=== PATIENT | female | born 1950 | race Hispanic/Latino ===

== ENCOUNTER 2020-02-25 15:50 | Inpatient (IN) | payer OTHER ==
--- OUTSIDE RECORDS SUMMARY | 2020-02-25 15:52 | XMS REPORT | Clinical Summary ---
:1950 Author Organization [facility] Address [address] [place] [address] Care Team Providers Name Role Phone Sharpless Primary Care Provider Unavailable Allergies No Known Allergies Medications Medication Sig Dispensed Refills Start Date End Date Status SITagliptin Take 100 mg by mouth 0 Active (JANUVIA) 100 MG daily. tablet amLODIPine Take 10 mg by mouth 0 Active (NORVASC) 10 MG daily. tablet esomeprazole Take 40 mg by mouth 0 Active (NEXIUM) 40 MG daily. capsule aspirin 81 MG EC Take 81 mg by mouth 0 Active tablet daily. clopidogrel Take 75 mg by mouth 0 Active (PLAVIX) 75 mg daily. tablet lisinopril Take 40 mg by mouth 0 Active (PRINIVIL,ZESTRIL) daily. 40 MG tablet insulin detemir Inject 50 Units 10 mL 0 03/06/2017 Active (LEVEMIR) 100 subcutaneously 2 unit/mL injection (two) times daily. 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 Family History Medical History Relation Name Comments Heart disease Brother Diabetes Father Cancer Maternal Grandfather Heart disease Maternal Grandmother Cancer Mother Diabetes Sister Relation Name Status Comments Brother Alive Father Maternal Grandfather Maternal Grandmother Mother Sister Social History Tobacco Use Types Packs/Day Years Used Date Never Smoker Smokeless Tobacco: Never Used Alcohol Use Drinks/Week oz/Week Comments No Sex Assigned at Date Recorded Not on file Job Start Date Occupation Industry Not on file Not on file Not on file Travel History Travel Start Travel End No recent travel history available. Last Filed Vital Signs Not on file Plan of Treatment Not on file Results Not on fileafter 02/24/2019 Insurance Payer Benefit Plan / Group Subscriber ID Type Phone A ddress [employer] xxxxxxxx Maps Contracted Advance Directives For more information, please contact:[address] [phone] Code Status Date Activated Date Inactivated Comments Full Code 02/27/2017 7:43 PM 03/09/2017 10:36 PM This code status was determined by: Patient
--- OUTSIDE RECORDS SUMMARY | 2020-02-25 15:53 | XMS REPORT | Continuity of Care Document ---
:1950 Author Organization [facility] t Address [address] [place] [address] Care Team Providers Name Role Phone Sharpless Primary Care Physician Unavailable Parviz MONROE Attending Clinician Unavailable Shawna HANEY Admitting Clinician Unavailable Payers Payer Name Policy Type Policy Number Effective Date Expiration Date S ource Problems Condition Condition Condition Status Onset Resolution Last Treating Co mments Source Name Details Category Date Date Treatment Clinician Date Left Left Disease Active [facility] pontine pontine 9-05 [facility] - stroke stroke 00:00: Medical 00 Center Allergies, Adverse Reactions, Alerts This patient has no known allergies or adverse reactions. Family History Family Member Diagnosis Comments Start Date Stop Date Source Natural brother Heart disease [facility] Natural father Diabetes [facility] Maternal grandfather Cancer [facility] Maternal grandmother Heart disease C [facility] Natural mother Cancer [facility] Natural sister Diabetes [facility] Social History Social Habit Start Date Stop Date Quantity Comments Source Sex Assigned At [facility] Smoking Status Start Date Stop Date Source Never smoker [facility] Medications Ordered Filled Start Stop Current Ordering Indication Dosage Frequency Signature Comments Components Source Medication Medication Date Date Medication? Clinician (SIG) Name Name insulin Yes 50U Q.5D Inject [facility] - (LEVEMIR) 00:00: subcutaneo Me dical 100 unit/mL 00 [facility] Center injection (two) times daily. SITagliptin 2017-0 Yes 100mg QD Take [address] (JANUVIA) 9-05 mg by [facility] - 100 MG 21:20: mouth Medical tablet 30 daily. Shorter amLODIPine 20170 Yes 10mg QD Take [address] (NORVASC) 9-05 by mouth [facility] - 10 MG 21:20: daily. Medical tablet 30 [facility] esomeprazol 2017-0 Yes 40mg QD Take [address] (NEXIUM) 9-05 by mouth [facility] - 40 MG 21:20: daily. Medical capsule 30 Shorter aspirin 81 20170 Yes 81mg QD Take [address] MG EC 9-05 by mouth [facility] - tablet 21:20: daily. Medical 30 [facility] clopidogrel 2017 Yes 75mg QD Take [address] [facility] [address] (PLAVIX) 75 -05 by mouth [facility] - mg tablet 21:20: daily. Medica l 30 [place]orter lisinopril Yes 40mg QD Take [address] (PRINIVIL,Z 02-27 by mouth [facility] - ESTRIL) 40 21:20: daily. Medic al MG tablet 30 Center Procedures Procedure Date / Time Performed Performing Clinician Sourc e [id number] 2020-01-05 00:00:00 ENCPL 4X4B00U 2020-01-05 00:00:00 ENCPL 0G7M45Z 2020-01-05 00:00:00 ENCPL 3L4F21B 2020-01-05 00:00:00 ENCPL 7V6M62O 2020-01-05 00:00:00 ENCPL 0R0W62U 2020-01-05 00:00:00 ENCPL 0M5C73Y 2020-01-05 00:00:00 ENCPL 4X4L64M 2020-01-05 00:00:00 ENCPL 7D7K17M 2020-01-05 00:00:00 ENCPL 2R7H72Y 2020-01-05 00:00:00 ENCPL 5U8J07P 2020-01-05 00:00:00 ENCPL 3N3P22A 2020-01-05 00:00:00 ENCPL 7W3X59M 2020-01-05 00:00:00 ENCPL 8J9N98T 2020-01-05 00:00:00 ENCPL 3Q8C54J 2020-01-05 00:00:00 ENCPL 2J8K56S 2020-01-05 00:00:00 ENCPL 1U0Y06S 2020-01-05 00:00:00 ENCPL 9B6T91S 2020-01-05 00:00:00 ENCPL 9F1U39T 2020-01-05 00:00:00 ENCPL 5R8O29F 2020-01-05 00:00:00 ENCPL 6Q9B28O 2020-01-05 00:00:00 ENCPL 6B7K70Z 2020-01-05 00:00:00 ENCPL 1G4U19B 2020-01-05 00:00:00 ENCPL 0E0Q82Z 2020-01-05 00:00:00 ENCPL 3E2H79V 2020-01-05 00:00:00 ENCPL 3V0H81Z 2020-01-05 00:00:00 ENCPL 1I9J35J 2020-01-05 00:00:00 ENCPL 4W8G69O 2020-01-05 00:00:00 ENCPL 2Y9V81L 2020-01-05 00:00:00 ENCPL Encounters Start End Encounter Admission Attending Care Care Encounter Source Date/Time Date/Time Type Type Clinicians Facility Department ID 2020-01-16 Outpatient NEW ENCGEN ENCGEN [id number] EN CGEN 13:22:45 ADMISSION Results Test Description Test Time Test Comments Results Result Comments Source POCT-GLUCOSE METER 2017-03-09 16:49:00 Test Item Value Reference Range Interpretation Comme nts POC-GLUCOSE METER ([place]) (test 150 mg/dL 70-110 [address]) [facility] 7703 0 POCT-GLUCOSE [id number] 11:40:00 Test Item Value Reference Range Interpretation Comments POC-GLUCOSE METER 125 mg/dL 70-110 H TESTED AT [place] [address] ([facility]) (test code = DAVID Parada [facility] 1538) [id number] POCT-GLUCOSE [id number] 07:36:00 Test Item Value Reference Range Interpretation Comments POC-GLUCOSE METER 102 mg/dL 70-110 TESTED AT [place] [address] ([facility]) (test code = DAVID Parada [facility] 1538) [id number] POCT-GLUCOSE [id number] 21:09:00 Test Item Value Reference Range Interpretation Comments POC-GLUCOSE METER 165 mg/dL 70-110 H TESTED AT [place] [address] ([facility]) (test code = DAVID Parada [place] 1538) [id number] POCT-GLUCOSE [id number] 16:49:00 Test Item Value Reference Range Interpretation Comments POC-GLUCOSE METER 124 mg/dL 70-110 H TESTED AT [place] [address] ([facility]) (test code = DAVID Parada [place] 1538) [id number] POCT-GLUCOSE [id number] 11:38:00 Test Item Value Reference Range Interpretation Comments POC-GLUCOSE METER 169 mg/dL 70-110 H TESTED AT [place] [address] ([facility]) (test code = DAVID Parada [place] 1538) [id number] POCT-GLUCOSE [id number] 07:40:00 Test Item Value Reference Range Interpretation Comments POC-GLUCOSE METER 191 mg/dL 70-110 H TESTED AT [place] [address] ([facility]) (test code = DAVID Parada [place] 1538) [id number] POCT-GLUCOSE [id number] 21:26:00 Test Item Value Reference Range Interpretation Comments POC-GLUCOSE METER 173 mg/dL 70-110 H TESTED AT [place] [address] ([facility]) (test code = DAVID Parada [place] 1538) [address] POCT-GLUCOSE [id number] 17:45:00 Test Item Value Reference Range Interpretation Comments POC-GLUCOSE METER 155 mg/dL 70-110 H TESTED AT [place] [address] ([facility]) (test code = DAVID Parada [place] 1538) [id number] POCT-GLUCOSE [id number] 12:58:00 Test Item Value Reference Range Interpretation Comments POC-GLUCOSE METER 181 mg/dL 70-110 H TESTED AT [place] [address] ([facility]) (test code = DAVID Parada [place] 1538) [id number] POCT-GLUCOSE [id number] 12:32:00 Test Item Value Reference Range Interpretation Comments POC-GLUCOSE METER 177 mg/dL 70-110 H TESTED AT [place] [address] ([facility]) (test code = DAVID Parada [place] 1538) [id number] POCT-GLUCOSE [id number] 08:25:00 Test Item Value Reference Range Interpretation Comments POC-GLUCOSE METER 125 mg/dL 70-110 H TESTED AT [place] [address] ([facility]) (test code = DAVID Parada [place] 1538) [id number] POCT-GLUCOSE [id number] 20:55:00 Test Item Value Reference Range Interpretation Comments POC-GLUCOSE METER 131 mg/dL 70-110 H TESTED AT [place] [address] ([facility]) (test code = ASHLEYTUCKER Karma [place] 1538) [id number] POCT-GLUCOSE [id number] 20:42:00 Test Item Value Reference Range Interpretation Comments POC-GLUCOSE METER 121 mg/dL 70-110 H TESTED AT [place] [address] ([facility]) (test code = ASHLEYTUCKER [place] 1538) [id number] POCT-GLUCOSE [id number] 17:10:00 Test Item Value Reference Range Interpretation Comments POC-GLUCOSE METER 116 mg/dL 70-110 H TESTED AT [place] [address] ([facility]) (test code = ASHLEYTUCKER Karma [place] 1538) [id number] POCT-GLUCOSE [id number] 11:45:00 Test Item Value Reference Range Interpretation Comments POC-GLUCOSE METER 153 mg/dL 70-110 H TESTED AT [place] [address] ([facility]) (test code = ASHLEYTUCKER [place] 1538) [id number] POCT-GLUCOSE [id number] 08:42:00 Test Item Value Reference Range Interpretation Comments POC-GLUCOSE METER 117 mg/dL 70-110 H TESTED AT [place] [address] ([facility]) (test code = ASHLEYTUCKER [place] 1538) [id number] POCT-GLUCOSE [id number] 21:05:00 Test Item Value Reference Range Interpretation Comments POC-GLUCOSE METER 195 mg/dL 70-110 H TESTED AT [place] [address] ([facility]) (test code = ASHLEYTUCKER Parada [place] 1538) [address] POCT-GLUCOSE [id number] 17:04:00 Test Item Value Reference Range Interpretation Comments POC-GLUCOSE METER 143 mg/dL 70-110 H TESTED AT [place] [address] ([facility]) (test code = ASHLEYTUCKER Parada [place] 1538) [id number] POCT-GLUCOSE [id number] 13:32:00 Test Item Value Reference Range Interpretation Comments POC-GLUCOSE METER 190 mg/dL 70-110 H TESTED AT [place] [address] ([facility]) (test code = DAVID [place] 1538) [id number] POCT-GLUCOSE [id number] 12:46:00 Test Item Value Reference Range Interpretation Comments POC-GLUCOSE METER 175 mg/dL 70-110 H TESTED AT [place] [address] ([facility]) (test code = DAVID Parada [facility] 1538) [id number] POCT-GLUCOSE [id number] 09:35:00 Test Item Value Reference Range Interpretation Comments POC-GLUCOSE METER 206 mg/dL 70-110 H TESTED AT [place] [address] ([facility]) (test code = DAVID Parada [facility] 1538) [id number] POCT-GLUCOSE [id number] 08:01:00 Test Item Value Reference Range Interpretation Comments POC-GLUCOSE METER 63 mg/dL 70-110 L Notified R Layton RIVAS/TESTED AT ([facility]) (test code = [address] 1538) [facility] 7703 0 POCT-GLUCOSE [id number] 20:42:00 Test Item Value Reference Range Interpretation Comments POC-GLUCOSE METER 160 mg/dL 70-110 H TESTED AT [place] [address] ([facility]) (test code = DAVID Parada [facility] 1538) 23943 POCT-GLUCOSE [id number] 16:48:00 Test Item Value Reference Range Interpretation Comments POC-GLUCOSE METER 180 mg/dL 70-110 H TESTED AT [place] [address] ([facility]) (test code = DAVID Parada [facility] 1538) [id number] POCT-GLUCOSE [id number] 11:45:00 Test Item Value Reference Range Interpretation Comments POC-GLUCOSE METER 176 mg/dL 70-110 H TESTED AT [place] [address] ([facility]) (test code = DAVID Parada [facility] 1538) [id number] POCT-GLUCOSE [id number] 08:12:00 Test Item Value Reference Range Interpretation Comments POC-GLUCOSE METER 89 mg/dL 70-110 TESTED AT [place] [address] ([facility]) (test code = DAVID Parada [facility] [address] 1538) BASIC METABOLIC [id number] 05:06:00 Test Item Value Reference Range Interpretation Comments SODIUM (BEAKER) 137 meq/L 136-145 (test code = 381) POTASSIUM (BEAKER) 4.0 meq/L 3.5-5.1 (test code = 379) CHLORIDE (BEAKER) 103 meq/L 98-107 (test code = 382) CO2 (BEAKER) (test 26 meq/L 22-29 code = 355) BLOOD UREA NITROGEN 21 mg/dL 7-21 (BEAKER) (test code = 354) CREATININE (BEAKER) 0.90 mg/dL 0.57-1.25 (test code = 358) GLUCOSE RANDOM 54 mg/dL 70-105 L (BEAKER) (test code = 652) CALCIUM (BEAKER) 9.7 mg/dL 8.4-10.2 (test code = 697) EGFR (BEAKER) (test 62 mL/min/1.73 ESTIMA DEMETRIO GFR IS code = 1092) sq m NOT ACCURATE CREATININE CLEARANCE IN PREDICTING GLOMERULAR FILTRATION RATE . ESTIMATED GFR I S NOT APPLICABLE FOR DIALYSIS PATIEN TS. POCT-GLUCOSE [id number] 21:04:00 Test Item Value Reference Range Interpretation Comments POC-GLUCOSE METER 115 mg/dL 70-[address] [facility] 6720 (BEAKER) (test code = DAVID Parada [place] 1538) [address] URINALYSIS W/ [id number] 19:25:00 Test Item Value Reference Range Interpretation Comments COLOR (BEAKER) (test code = 470) Light Yellow CLARITY (BEAKER) (test code = Hazy 469) SPECIFIC GRAVITY UA (BEAKER) 1.004 1.001-1.035 (test code = 468) PH UA (BEAKER) (test code = 467) 5.5 5.0-8.0 PROTEIN UA (BEAKER) (test code = 70 mg/dL Negative A 464) GLUCOSE UA (BEAKER) (test code = Negative Negative 365) KETONES UA (BEAKER) (test code = Negative Negative 371) BILIRUBIN UA (BEAKER) (test code Negative Negative = 462) BLOOD UA (BEAKER) (test code = Small Negative A 461) NITRITE UA (BEAKER) (test code = Negative Negative 465) LEUKOCYTE ESTERASE UA (BEAKER) Large Negative A (test code = 466) UROBILINOGEN UA (BEAKER) (test 0.2 mg/dL 0.2-1.0 code = 463) RBC UA (BEAKER) (test code = 4 /HPF 519) WBC UA (BEAKER) (test code = 38 /HPF 520) BACTERIA (BEAKER) (test code = Rare 517) SQUAMOUS EPITHELIAL (BEAKER) 4 /HPF (test code = 516) SOURCE(BEAKER) (test code = 2795) POCT-GLUCOSE [id number] 17:51:00 Test Item Value Reference Range Interpretation Comments POC-GLUCOSE METER 176 mg/dL 70-110 H TESTED AT [place] [address] ([facility]) (test code = DAVID [place] 1538) [address] POCT-GLUCOSE [id number] 12:29:00 Test Item Value Reference Range Interpretation Comments POC-GLUCOSE METER 142 mg/dL 70-110 H TESTED AT [place] [address] ([facility]) (test code = DAVID Parada [place] 1538) [address] POCT-GLUCOSE [id number] 08:01:00 Test Item Value Reference Range Interpretation Comments POC-GLUCOSE METER 103 mg/dL 70-110 TESTED AT [place] [address] ([facility]) (test code = DAVID Parada [place] 1538) [address]120 POCT-GLUCOSE [id number] 20:52:00 Test Item Value Reference Range Interpretation Comments POC-GLUCOSE METER 141 mg/dL 70-110 H TESTED AT [place] [address] ([facility]) (test code = DAVID Parada [place] 1538) [id number] POCT-GLUCOSE [id number] 17:25:00 Test Item Value Reference Range Interpretation Comments POC-GLUCOSE METER 189 mg/dL 70-110 H TESTED AT [place] [address] ([facility]) (test code = DAVID Parada [place] 1538) [address] POCT-GLUCOSE [id number] 12:42:00 Test Item Value Reference Range Interpretation Comments POC-GLUCOSE METER 169 mg/dL 70-110 H TESTED AT [place] [address] ([facility]) (test code = DAVID Parada [place] 1538) [id number] POCT-GLUCOSE [id number] 08:12:00 Test Item Value Reference Range Interpretation Comments POC-GLUCOSE METER 140 mg/dL 70-110 H TESTED AT [place] [address] ([facility]) (test code = DAVID Parada [place] 1538) [address]235 POCT-GLUCOSE [id number] 20:30:00 Test Item Value Reference Range Interpretation Comments POC-GLUCOSE METER 165 mg/dL 70-110 H TESTED AT [place] [address] ([facility]) (test code = DAVID Parada [place] 1538) [address]382 POCT-GLUCOSE [id number] 16:56:00 Test Item Value Reference Range Interpretation Comments POC-GLUCOSE METER 84 mg/dL 70-110 TESTED AT [place] [address] ([facility]) (test code = DAVID Parada [facility] [address] 1538) URINE [id number] 15:41:00 Test Item Value Reference Range Interpretation Comments CULTURE ([facility]) (test 30-39,000 col/mL skin code = 1095) marcie POCT-GLUCOSE [id number] 11:27:00 Test Item Value Reference Range Interpretation Comments POC-GLUCOSE METER 127 mg/dL 70-110 H TESTED AT [place] [address] ([facility]) (test code = DAVID Parada [place] 1538) [address] POCT-GLUCOSE [id number] 08:18:00 Test Item Value Reference Range Interpretation Comments POC-GLUCOSE METER 117 mg/dL 70-110 H TESTED AT [place] [address] ([facility]) (test code = DAVID Parada [place] 1538) [address]87 POCT-GLUCOSE [id number] 20:16:00 Test Item Value Reference Range Interpretation Comments POC-GLUCOSE METER 111 mg/dL 70-110 H TESTED AT [place] [address] ([facility]) (test code = DAVID Parada [place] 1538) [address] POCT-GLUCOSE [id number] 17:19:00 Test Item Value Reference Range Interpretation Comments POC-GLUCOSE METER 148 mg/dL 70-110 H TESTED AT [place] [address] ([facility]) (test code = DAVID Parada [place] 1538) [address]24 POCT-GLUCOSE [id number] 13:27:00 Test Item Value Reference Range Interpretation Comments POC-GLUCOSE METER 245 mg/dL 70-110 H TESTED AT [place] [address] ([facility]) (test code = DAVID Parada [place] 1538) [address] POCT-GLUCOSE [id number] 11:50:00 Test Item Value Reference Range Interpretation Comments POC-GLUCOSE METER 234 mg/dL 70-110 H TESTED AT [place] [address] ([facility]) (test code = DAVID Parada [place] 1538) [address] HEMOGLOBIN [id number] 08:59:00 Test Item Value Reference Range Interpretation Comments HEMOGLOBIN A1C ([facility]) (test code = 11.8 % 4.3-6.1 H 368) POCT-GLUCOSE [id number] 07:40:00 Test Item Value Reference Range Interpretation Comments POC-GLUCOSE METER 181 mg/dL 70-[address] [facility] 6720 (BEAKER) (test code = DAVID [place] 1538) [address] LIPID [id number] 06:05:00 Test Item Value Reference Range Interpretation Comments TRIGLYCERIDES (BEAKER) (test code = 206 mg/dL 540) CHOLESTEROL (BEAKER) (test code = 230 mg/dL 631) HDL CHOLESTEROL (BEAKER) (test code 36 mg/dL = 976) LDL CHOLESTEROL CALCULATED (BEAKER) 153 mg/dL (test code = 633) Triglyceride Reference Range: Low Risk <150 Borderline 150-199 High Risk 200-499 Very High Risk >=500Cholesterol Reference Range: Low Risk <200 Borderline 200-239 High Risk >240HDL Cholesterol Reference Range: Low Risk >=60 High Risk <40LDL Cholesterol Reference Range: Optimal <100 Near Optimal 100-129 Borderline 130-159 High 160-189 Very High >=190 FastingBASIC METABOLIC [id number] 06:05:00 Test Item Value Reference Range Interpretation Comments SODIUM (BEAKER) 141 meq/L 136-145 (test code = 381) POTASSIUM (BEAKER) 3.3 meq/L 3.5-5.1 L (test code = 379) CHLORIDE (BEAKER) 105 meq/L 98-107 (test code = 382) CO2 (BEAKER) (test 27 meq/L 22-29 code = 355) BLOOD UREA NITROGEN 15 mg/dL 7-21 (BEAKER) (test code = 354) CREATININE (BEAKER) 0.99 mg/dL 0.57-1.25 (test code = 358) GLUCOSE RANDOM 184 mg/dL 70-105 H (BEAKER) (test code = 652) CALCIUM (BEAKER) 9.4 mg/dL 8.4-10.2 (test code = 697) EGFR (BEAKER) (test 56 mL/min/1.73 ESTIMA DEMETRIO GFR IS code = 1092) sq m NOT ACCURATE CREATININE CLEARANCE IN PREDICTING GLOMERULAR FILTRATION RATE . ESTIMATED GFR I S NOT APPLICABLE FOR DIALYSIS PATIEN TS. FastingTSH/FREE T4 IF [id number] 06:05:00 Test Item Value Reference Range Interpretation Comments THYROID STIMULATING HORMONE 2.87 uIU/mL 0.35-4.94 (BEAKER) (test code = 772) CBC W/PLT COUNT & AUTO [id number] 05:29:00 Test Item Value Reference Range Interpretation Comments WHITE BLOOD CELL COUNT (BEAKER) 6.1 K/ L 3.5-10.5 (test code = 775) RED BLOOD CELL COUNT (BEAKER) 4.13 M/ L 3.93-5.22 (test code = 761) HEMOGLOBIN (BEAKER) (test code = 11.7 GM/DL 11.2-15.7 410) HEMATOCRIT (BEAKER) (test code = 36.2 % 34.1-44.9 411) MEAN CORPUSCULAR VOLUME (BEAKER) 87.7 fL 79.4-94.8 (test code = 753) MEAN CORPUSCULAR HEMOGLOBIN 28.3 pg 25.6-32.2 (BEAKER) (test code = 751) MEAN CORPUSCULAR HEMOGLOBIN CONC 32.3 GM/DL 32.2-35.5 (BEAKER) (test code = 752) RED CELL DISTRIBUTION WIDTH 14.2 % 11.7-14.4 (BEAKER) (test code = 412) PLATELET COUNT (BEAKER) (test 289 K/CU MM 150-450 code = 756) MEAN PLATELET VOLUME (BEAKER) 9.6 fL 9.4-12.3 (test code = 754) NUCLEATED RED BLOOD CELLS 0 /100 WBC 0-0 (BEAKER) (test code = 413) NEUTROPHILS RELATIVE PERCENT 49 % (BEAKER) (test code = 429) LYMPHOCYTES RELATIVE PERCENT 41 % (BEAKER) (test code = 430) MONOCYTES RELATIVE PERCENT 5 % (BEAKER) (test code = 431) EOSINOPHILS RELATIVE PERCENT 4 % (BEAKER) (test code = 432) BASOPHILS RELATIVE PERCENT 1 % (BEAKER) (test code = 437) NEUTROPHILS ABSOLUTE COUNT 2.97 K/ L 1.56-6.13 (BEAKER) (test code = 670) LYMPHOCYTES ABSOLUTE COUNT 2.49 K/ L 1.18-3.74 (BEAKER) (test code = 414) MONOCYTES ABSOLUTE COUNT (BEAKER) 0.30 K/ L 0.24-0.36 (test code = 415) EOSINOPHILS ABSOLUTE COUNT 0.23 K/ L 0.04-0.36 (BEAKER) (test code = 416) BASOPHILS ABSOLUTE COUNT (BEAKER) 0.06 K/ L 0.01-0.08 (test code = 417) IMMATURE GRANULOCYTES-RELATIVE 0 % 0-1 PERCENT (BEAKER) (test code = 2801) POCT-GLUCOSE [id number] 23:44:00 Test Item Value Reference Range Interpretation Comments POC-GLUCOSE METER 169 mg/dL 70-[address] [facility] 6720 (BEAKER) (test code = DAVID Parada [place] 1538) [address] URINALYSIS W/ [id number] 23:03:00 Test Item Value Reference Range Interpretation Comments COLOR (BEAKER) (test code = 470) Light Yellow CLARITY (BEAKER) (test code = Clear 469) SPECIFIC GRAVITY UA (BEAKER) 1.007 1.001-1.035 (test code = 468) PH UA (BEAKER) (test code = 467) 7.0 5.0-8.0 PROTEIN UA (BEAKER) (test code = 300 mg/dL Negative A 464) GLUCOSE UA (BEAKER) (test code = 50 mg/dL Negative A 365) KETONES UA (BEAKER) (test code = Negative Negative 371) BILIRUBIN UA (BEAKER) (test code Negative Negative = 462) BLOOD UA (BEAKER) (test code = Small Negative A 461) NITRITE UA (BEAKER) (test code = Negative Negative 465) LEUKOCYTE ESTERASE UA (BEAKER) Large Negative A (test code = 466) UROBILINOGEN UA (BEAKER) (test 0.2 mg/dL 0.2-1.0 code = 463) RBC UA (BEAKER) (test code = 5 /HPF 519) WBC UA (BEAKER) (test code = 57 /HPF 520) SQUAMOUS EPITHELIAL (BEAKER) 1 /HPF (test code = 516) HYALINE CASTS (BEAKER) (test 2 /LPF code = 514) SOURCE(BEAKER) (test code = 1648)
[2020-02-25 17:13] LABS: Basophils % 1.3 % (0-1.3); Hematocrit 25.2 % (36.0-45.0); Lymphocytes % 12.9 % (15.3-44.8); MPV 7.5 fL (7.6-11.3); RBC Red Blood Cell Count 2.82 M/uL (3.86-4.86)
[2020-02-25] MEDS ORDERED: NA CHLORIDE 0.9% 1,000 ML ONE (17:14)
[2020-02-25 17:15] LABS: Protime INR 1.15
--- NOTE | 2020-02-25 17:43 | EDPHYS ---
Physician Documentation [facility] Name: Fifi Salamanca Age: 69 yrs Sex: Female : 1950 Arrival Date: 02/25/2020 Time: 16:02 Bed 7 Private MD: ED Physician Jose Enrique Mclaughlin HPI: 02/25 08:28 This 69 yrs old Female presents to ER via EMS with complaints of Right foot kdr infection. 08:28 The patient was sent by Dr. Vallejo's office for evaluation of possible gangrene to right kdr foot. The patient is unable to give any history and is a poor historian . Historical: - Allergies: 02/24 16:07 Aspirin; hb - PMHx: 16:07 Diabetes - IDDM; Hypertension; Myocardial infarction; High Cholesterol; CVA; hb - PSHx: 16:07 None; hb - Immunization history:: Adult Immunizations up to date. - Social history:: Smoking status: unknown. ROS: 02/25 09:15 Constitutional: Unable to obtain due to AMS kdr Unable to obtain ROS due to altered mental status. Exam: 02/24 18:31 ECG was reviewed by the Attending Physician. kdr 02/25 09:15 Constitutional: This is a well developed, poorly nourished patient who is sonolent but kdr in very mild distress. Head/Face: Normocephalic, atraumatic. Eyes: Pupils equal round and reactive to light, extra-ocular motions intact. Lids and lashes normal. Conjunctiva and sclera are non-icteric and not injected. Cornea within normal limits. Periorbital areas with no swelling, redness, or edema. Chest/axilla: Normal chest wall appearance and motion. Nontender with no deformity. No lesions are appreciated. Cardiovascular: Regular rate and rhythm with a normal S1 and S2. No gallops, murmurs, or rubs. Normal PMI, no JVD. No pulse deficits. Respiratory: Lungs have equal breath sounds bilaterally, clear to auscultation and percussion. No rales, rhonchi or wheezes noted. No increased work of breathing, no retractions or nasal flaring. Abdomen/GI: Soft, non-tender, with normal bowel sounds. No distension or tympany. No guarding or rebound. No evidence of tenderness throughout. Musculoskeletal/extremity: Both lower extremities are contracted and wasted with little muscle mass. The right foot is almost completely gangrenous adn there are some ulcerate areas on the left lower extremity as well. Vital Signs: 02/24 16:04 BP 175 / 67; Pulse 83; Resp 16; Temp 99; Pulse Ox 97% on R/A; Pain 0/10; hb 17:23 Weight 53.98 kg; jr10 18:20 BP 183 / 71; Pulse 86; Resp 20; Temp 98.3; Pulse Ox 98% on R/A; jr10 18:40 BP 184 / 71; Pulse 80; Resp 20; Pulse Ox 99% on R/A; jr10 18:57 BP 63 / 53; Pulse 86; Resp 16; Pulse Ox 86% on R/A; jr10 18:59 BP 84 / 46; Pulse 85; Resp 15; Pulse Ox 87% ; jr10 19:02 BP 76 / 38; Pulse 86; Resp 16; Pulse Ox 91% on Non-rebreather mask; jr10 19:07 BP 99 / 64; Pulse 102; Resp 16; Pulse Ox 100% on Non-rebreather mask; jr10 19:59 BP 99 / 64; Pulse 92; Resp 19; Pulse Ox 92% ; Pain 0/10; mt2 20:05 Temp 97.9; mt2 MDM: 17:43 Patient medically screened. [facility] 02/25 09:15 Data reviewed: vital signs, nurses notes, old medical records, EKG, radiologic studies. [facility] 02/24 16:54 Order name: Amylase, Serum; Complete Time: 17:53 [facility] 02/24 16:54 Order name: Basic Metabolic Panel; Complete Time: 17:53 [facility] 02/24 16:54 Order name: Blood Culture Adult (2) [facility] 02/24 16:54 Order name: CBC with Diff; Complete Time: 17:53 [facility] 02/24 16:54 Order name: Ckmb; Complete Time: 17:53 [facility] 02/24 16:54 Order name: CPK; Complete Time: 17:53 [facility] 02/24 16:54 Order name: Lactate; Complete Time: 17:53 [facility] 02/24 16:54 Order name: LFT's; Complete Time: 17:53 [facility] 02/24 16:54 Order name: Lipase; Complete Time: 17:53 [facility] 02/24 16:54 Order name: Procalcitonin; Complete Time: 20:10 kdr 02/24 16:54 Order name: Protime (+inr); Complete Time: 17:53 kdr 02/24 16:54 Order name: Ptt, Activated; Complete Time: 17:53 kdr 02/24 16:54 Order name: Troponin (emerg Dept Use Only); Complete Time: 17:53 kdr 02/24 16:54 Order name: Urine Microscopic Only; Complete Time: 20:10 kdr 02/24 16:54 Order name: Chest Single View XRAY; Complete Time: 20:11 kdr 02/24 16:54 Order name: Accucheck; Complete Time: 18:33 kdr 02/24 16:54 Order name: Cardiac monitoring; Complete Time: 16:57 kdr 02/24 16:54 Order name: Foot Right 3 View XRAY; Complete Time: 20:11 kdr 02/24 16:54 Order name: Tib Fib Right XRAY; Complete Time: 20:11 kdr 02/24 18:16 Order name: Urine Dipstick--Ancillary (enter results); Complete Time: 20:10 bd 02/24 19:02 Order name: CT Head Brain wo Cont sv 02/24 19:16 Order name: Glucose, Ancillary Testing; Complete Time: 20:10 EDMS 02/24 19:20 Order name: Chest Single View XRAY wh 02/24 19:47 Order name: CT; Complete Time: 20:11 EDMS 02/24 20:10 Order name: RAD; Complete Time: 20:11 EDMS 02/24 16:54 Order name: EKG - Nurse/Tech; Complete Time: 17:27 kdr 02/24 16:54 Order name: IV Saline Lock - Large Bore; Complete Time: 16:57 kdr 02/24 16:54 Order name: Labs collected and sent; Complete Time: 16:57 kdr 02/24 16:54 Order name: O2 Per Protocol; Complete Time: 16:57 kdr 02/24 16:54 Order name: O2 Sat Monitoring; Complete Time: 16:57 kdr 02/24 16:54 Order name: Urine Dipstick-Ancillary (obtain specimen); Complete Time: 17:54 kdr EC/02 18:31 Rate is 81 beats/min. Rhythm is regular, Normal Sinus Rhythm with No ectopy. QRS [place] kdr is Normal. [place] interval is normal. QRS interval is normal. QT interval is normal. Clinical impression: NSR w/ Non-specific ST/T Changes. Administered Medications: 17:26 Drug: NS 0.9% (30 ml/kg) 30 ml/kg Route: IV; Rate: bolus; Site: right forearm; jr10 18:22 Drug: Rocephin - (cefTRIAXone) 1 grams {Note: slow IVP per pharmacy protocol and 10 formulary .} Route: IVPB; Infused Over: 30 mins; Site: right forearm; 18:33 Follow up: Response: No adverse reaction; IV Status: Completed infusion jr10 18:40 Drug: vancoMYCIN 1 grams Route: IVPB; Infused Over: 2 hrs; Site: right forearm; jr10 18:40 Drug: Potassium Chloride 20 mEq Route: IV; Rate: calculated rate; Site: left 10 antecubital; 19:00 Drug: NS 0.9% 500 ml Route: IV; Rate: bolus; Site: left antecubital; mt2 20:04 Follow up: IV Status: Completed infusion mt2 20:05 Follow up: Response: No adverse reaction mt2 Disposition: 02/25/20 17:43 Hospitalization ordered by Du Joe for Inpatient Admission. Preliminary diagnosis is Gangrene Right foot. - Bed requested for Telemetry/MedSurg (Inpatient). - Status is Inpatient Admission. mt2 - Condition is Serious. - Problem is an ongoing problem. - Symptoms are unchanged. Signatures: Dispatcher [employer] EDMS Jose Enrique Mclaughlin MD MD kdr Attema, Lee, LOSS PREVENTION RESEARCH ENGINEER-C LOSS PREVENTION RESEARCH ENGINEER-Cla1 Chasity Muniz RN RN tl1 Zhanna Dickinson, LINDA MCKEON Anabela Arzate RN RN mt2 Kim Acosta, LINDA RN jr10 Corrections: (The following items were deleted from the chart) 19:25 17:43 Hospitalization Ordered by Du Joe DO for Inpatient Admission. Preliminary tl1 diagnosis is Gangrene Right foot. Bed requested for Telemetry/MedSurg (Inpatient). Status is Inpatient Admission. Condition is Serious. Problem is an ongoing problem. Symptoms are unchanged. kdr 20:50 19:25 02/25/2020 17:43 Hospitalization Ordered by Du Joe DO for Inpatient mt2 Admission. Preliminary diagnosis is Gangrene Right foot. Bed requested for Telemetry/MedSurg (Inpatient). Status is Inpatient Admission. Condition is Serious. Problem is an ongoing problem. Symptoms are unchanged. tl1
--- NOTE | 2020-02-25 17:43 | ER ---
Nurse's Notes [facility] Name: Fifi Salamanca Age: 69 yrs Sex: Female : 1950 Arrival Date: 02/25/2020 Time: 16:02 Bed 7 Private MD: Diagnosis: Gangrene Right foot Presentation: 02/24 16:04 Chief complaint: EMS states: Sent by [facility] for eval of necrotic right foot. hb Coronavirus screen: At this time, the client does not indicate any symptoms associated with coronavirus-19. Ebola Screen: No symptoms or risks identified at this time. Initial Sepsis Screen: Does the patient meet any 2 criteria? No. Patient's initial sepsis screen is negative. Risk Assessment: Do you want to hurt yourself or someone else? Patient reports no desire to harm self or others. Onset of symptoms was February 25, 2020. 16:04 Acuity: ROBERT 3 hb 16:04 Method Of Arrival: EMS: [facility] hb 20:10 Initial Sepsis Screen: Does the patient have a suspected source of infection? Yes: Bone mt2 or joint infection. Historical: - Allergies: 16:07 Aspirin; hb - PMHx: 16:07 Diabetes - IDDM; Hypertension; Myocardial infarction; High Cholesterol; CVA; hb - PSHx: 16:07 None; hb - Immunization history:: Adult Immunizations up to date. - Social history:: Smoking status: unknown. Screenin:48 Abuse screen: Denies threats or abuse. Denies injuries from another. Nutritional jr10 screening: No deficits noted. Tuberculosis screening: No symptoms or risk factors identified. Fall Risk Fall in past 12 months (25 points). Secondary diagnosis (15 points) impaired mobility, IV access (20 points). Ambulatory Aid- None/Bed Rest/Nurse Assist (0 pts). Gait- Impaired (20 pts.). Mental Status- Overestimates/Forgets Limitations (15 pts.). Assessment: 16:30 General: Appears uncomfortable, Behavior is appropriate for age. Pain: Complains of jr10 pain in right foot, left foot and right leg. Neuro: No deficits noted. Level of Consciousness is awake, alert, obeys commands, Oriented to person, place, situation, Appropriate for age. Cardiovascular: No deficits noted. Denies chest pain, Capillary refill is > 3 seconds is sluggish in bilateral toes Patient's skin is warm and dry. Rhythm is regular. Cardiovascular:. Respiratory: No deficits noted. Airway is patent Respiratory effort is even, unlabored, Respiratory pattern is regular, symmetrical, Denies shortness of breath. GI: No deficits noted. Abdomen is PEG tube noted to LUQ Patient currently denies diarrhea, nausea, vomiting. : Urine is cloudy, Swelling noted yeast noted with foul odor. : Reports pt HD on Tues, Thurs, Sat; dee cath noted to right chest wall. EENT: No deficits noted. No signs and/or symptoms were reported regarding the EENT system. Derm: Wound noted plantar aspect of right first toe, plantar aspect of right second toe, heel of right foot and heel of left foot Wound is dry, cracked skin noted to ian feet, necrosis noted to great toe and second toe on right foot. Musculoskeletal: Range of motion: limited in right knee. 19:10 Reassessment: Pt noted to have complete mental status change while this nurse was in [facility] the room. Pt noted to have nausea with decreased mentation. Pt sat up in bed, suctioned mouth. Ian eye nystagmus noted, pt alert but unaware of surroundings and unable to communicate, with hypotension and decreased O2 sats noted. Dr Alas called to room. Pt mouth suctioned, placed on NRB. 500mL bolus given. BG obtained noted to be WNL. Pt has no hx of seizures per family and chart. Pt does have a hx of past CVA. Stat CT ordered per verbal order Dr Alas. 19:22 Reassessment: Pt to CT with LINDA Peñaloza via stretcher on O2 and monitor. [facility] 19:58 Reassessment: PT AWAKE AND ABLE TO TRACK. B/P AT 99/64 POST NS BOLUS 500ML. mt2 Vital Signs: 16:04 BP 175 / 67; Pulse 83; Resp 16; Temp 99; Pulse Ox 97% on R/A; Pain 0/10; hb 17:23 Weight 53.98 kg; jr10 18:20 BP 183 / 71; Pulse 86; Resp 20; Temp 98.3; Pulse Ox 98% on R/A; jr10 18:40 BP 184 / 71; Pulse 80; Resp 20; Pulse Ox 99% on R/A; jr10 18:57 BP 63 / 53; Pulse 86; Resp 16; Pulse Ox 86% on R/A; jr10 18:59 BP 84 / 46; Pulse 85; Resp 15; Pulse Ox 87% ; jr10 19:02 BP 76 / 38; Pulse 86; Resp 16; Pulse Ox 91% on Non-rebreather mask; jr10 19:07 BP 99 / 64; Pulse 102; Resp 16; Pulse Ox 100% on Non-rebreather mask; jr10 19:59 BP 99 / 64; Pulse 92; Resp 19; Pulse Ox 92% ; Pain 0/10; mt2 20:05 Temp 97.9; mt2 ED Course: 16:02 Patient arrived in ED. ds1 16:06 Triage completed. hb 16:07 Arm band placed on. hb 16:11 Jose Enrique Mclaughlin MD is Attending Physician. kdr 16:13 Kim Acosta RN is Primary Nurse. jr10 16:48 No provider procedures requiring assistance completed. Inserted saline lock: 20 gauge jr10 in right forearm, using aseptic technique. IV is patent, is intact, with good blood return, Flushed. 16:49 Patient has correct armband on for positive identification. Placed in gown. Bed in low jr10 position. Call light in reach. Side rails up X2. monitor and storage bin tender on. Pulse ox on. NIBP on. 17:38 Chest Single View XRAY In Process Unspecified. EDMS 17:38 Foot Right 3 View XRAY In Process Unspecified. EDMS 17:38 Tib Fib Right XRAY In Process Unspecified. EDMS 17:42 Du Joe DO is Hospitalizing Provider. kdr 18:40 Inserted saline lock: 20 gauge in left antecubital area, using aseptic technique. jr10 19:25 Report given to LINDA Peñaloza. jr10 20:10 Patient admitted, IV remains in place. mt2 Administered Medications: 17:26 Drug: NS 0.9% (30 ml/kg) 30 ml/kg Route: IV; Rate: bolus; Site: right forearm; jr10 18:22 Drug: Rocephin - (cefTRIAXone) 1 grams {Note: slow IVP per pharmacy protocol and jr10 formulary .} Route: IVPB; Infused Over: 30 mins; Site: right forearm; 18:33 Follow up: Response: No adverse reaction; IV Status: Completed infusion jr10 18:40 Drug: vancoMYCIN 1 grams Route: IVPB; Infused Over: 2 hrs; Site: right forearm; jr10 18:40 Drug: Potassium Chloride 20 mEq Route: IV; Rate: calculated rate; Site: left jr10 antecubital; 19:00 Drug: NS 0.9% 500 ml Route: IV; Rate: bolus; Site: left antecubital; mt2 20:04 Follow up: IV Status: Completed infusion mt2 20:05 Follow up: Response: No adverse reaction mt2 Outcome: 17:43 Decision to Hospitalize by Provider. kdr 19:57 Condition: stable mt2 20:09 Admitted to Med/surg accompanied by tech, room 206, Report called to EUN mt2 20:09 Instructed on the need for admit. 20:50 Patient left the ED. mt2 Signatures: Dispatcher [employer] EDJose Enrique Lopez MD MD kdr [place], Demi ds1 Zhanna Dickinson RN RN Anabela Arzate RN RN mt2 Kim Acosta RN RN jr10
[2020-02-25 17:46] LABS: ALT/SGPT < 6 U/L (12-78); AST/SGOT 11 U/L (15-37); Alkaline Phosphatase 79 U/L (45-117); Amylase 35 U/L (25-115); BUN Blood Urea Nitrogen 8 mg/dL (7-18); Bicarbonate 31 mmol/L (21-32); Bilirubin Direct 0.2 mg/dL (0-0.2); Bilirubin Total 0.4 mg/dL (0.2-1.0); CKMB Creatine Kinase MB < 1.0 ng/mL (0.3-3.6); Creatine Phosphokinase 21 U/L (26-192); Glucose Level 127 mg/dL (74-106); Lipase 266 U/L (73-393); Sodium Level 142 mmol/L (136-145)
[2020-02-25 17:48] LABS: Potassium 2.3 mmol/L (3.5-5.1)
--- NOTE | 2020-02-25 18:04 | RAD REPORT ---
EXAM DESCRIPTION: RAD - Tib Fib Right - 02/25/2020 5:38 pm CLINICAL HISTORY: Right leg pain FINDINGS: No fracture is seen. Osteoporosis. No bony destructive lesion noted
--- NOTE | 2020-02-25 18:05 | RAD REPORT ---
EXAM DESCRIPTION: RAD - Foot Right 3 View - 02/25/2020 5:38 pm CLINICAL HISTORY: Right foot pain FINDINGS: No fracture or dislocation is seen. Osteoporosis. No bony destructive lesion is seen
--- NOTE | 2020-02-25 18:06 | RAD REPORT ---
EXAM DESCRIPTION: Gauri Single View02/25/2020 5:38 pm CLINICAL HISTORY: Hypertension/foot infection COMPARISON: 2017 FINDINGS: The lungs appear clear of acute infiltrate. The heart is normal size. Central venous cath eter in place IMPRESSION: No acute abnormalities displayed
[2020-02-25] MEDS ORDERED: CEFTRIAXONE/SWI 1gm 1 GM/10 ML SYR ONE (18:09)
[2020-02-25 18:22] LABS: Urine Blood 2+ (NEG); Urine Glucose 2+ (NEG); Urine Protein 3+ (NEG); Urine pH 7.5 (5.0-7.0)
[2020-02-25 18:48] LABS: Urine Bacteria 20-50 /HPF (<20); Urine Culture Reflex Order REFLEXED; Urine RBC 20-50 /HPF (NONE SEEN)
[2020-02-25 18:49] LABS: Urine Amorphous Sediment 1+ /HPF (NONE SEEN); Urine Yeast with Hyphae PRESENT
[2020-02-25] MEDS ORDERED: KCL 20 MEQ/100 mL IVPB 20 MEQ/100 ML BAG IV ONE (18:58)
[2020-02-25] MEDS ORDERED: VANCOMYCIN/NS 1 gm 1 GM/250 ML BAG IVPB ONE (19:00)
--- NOTE | 2020-02-25 19:10 | P.HP ---
Certification for Inpatient Patient admitted to: Inpatient With expected LOS: >2 Midnights Patient will require the following post-hospital care: Hospice Practitioner: I am a practitioner with admitting privileges, knowledge of patient current condition, hospital course, and medical plan of care. Services: Services provided to patient in accordance with Admission requirements found in Title 42 Section 412.3 of the Code of Federal Regulations <Figueroa Heredia - Last Filed: 02/25/20 18:55> Patient History Date of Service: 02/25/20 Primary Care Provider: Dr. 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 Son reports that patient was recently seen in December at [facility] for renal failure and ended up on dialysis. Patient was placed on hospice. Son revoked hospice due to wound on foot and wanted to seek further treatment. During evaluation in the emergency department patient noted to have dry gangrene of the right 1st and 2nd toes. Patient also with multiple decubitus wounds to right and left foot as well as sacral area. Patient also noted to have elevated troponin at 0.10. ED provider wishes to admit patient for further evaluation and management. When I saw the patient in the emergency department she was awake, alert, did not respond to any of my questions. Patient does not appear septic at this time. Patient does appear to be hospice appropriate. Patient be admitted for further evaluation and management. - Past Medical/Surgical History Diabetic: Yes -: HX OF STROKE IN 2001,2012 -: HYPERTENSION -: HYPERLIPIDEMIA -: HYPOTHYROIDISM -: GERD -: Right eye double vision -: ESRB on dialysis -: Multiple decubitus ulcers -: HEART CATH -: THYROIDECTOMY Psychosocial/ Personal History: Patient lives at home with her son, hospice was revoked - Family History Sister -: Diabetes - Social History Smoking Status: Unknown if ever smoked Alcohol use: No CD- Drugs: No Caffeine use: Yes <Figueroa Heredia - Last Filed: 02/25/20 18:55> Date of Service: 02/26/20 <Raza Chris - Last Filed: 02/26/20 21:15> Allergies aspirin Allergy (Verified 02/26/20 01:13) Nausea/Vomiting Home Medications: Amantadine HCl [Amantadine] 50 mg PO DAILY 02/26/20 Amlodipine [Norvasc*] 10 mg PO DAILY 02/26/20 Baclofen 5 mg PO M,W,F 02/26/20 Calcitriol [Rocaltrol] 0.25 mcg PO M,W,F 02/26/20 Carvedilol [Coreg] 25 mg PO Q12H 02/26/20 Clopidogrel Bisulfate [Plavix*] 75 mg PO DAILY 02/26/20 Furosemide [Lasix*] 2 tab PO Q7D 02/26/20 Furosemide [Lasix] 80 mg PO DAILY 02/26/20 Linagliptin [Tradjenta] 5 mg PO DAILY 02/26/20 Losartan Potassium 25 mg PO DAILY 02/26/20 Losartan Potassium 25 mg PO DAILY 02/26/20 Omeprazole 20 mg PO BID 02/26/20 Sertraline [Zoloft*] 25 mg PO DAILY 02/26/20 Review of Systems is unable to be obtained <Figueroa Heredia - Last Filed: 02/25/20 18:55> Physical Examination - Physical Exam General: Alert, Demented HEENT: Atraumatic, Normocephalic, Other (MM dry) Neck: Supple Respiratory: Diminished (DAVY) Cardiovascular: Normal pulses, Regular rate/rhythm, Normal S1 S2 Capillary refill: <2 Seconds Gastrointestinal: Normal bowel sounds, Soft and benign, Other (PEG tube) Musculoskeletal: Contractures (RLE) Integumentary: Diabetic ulcer (DVAY feet, dry gangrene 1st and 2nd toe right foot, sacral decub.) Neurological: Abnormal tone (RLE contracture), Dementia - Studies Laboratory Data (last 24 hrs) 02/25/20 16:55: PT 13.5 H, INR 1.15, APTT 27.1 02/25/20 16:55: WBC 7.7, Hgb 8.1 L, Hct 25.2 L, Plt Count 409 H 02/25/20 16:55: Sodium 142, Potassium 2.3 L*, BUN 8, Creatinine 2.52 H, Glucose 127 H, Total Bilirubin 0.4, AST 11 L, ALT < 6 L, Alkaline Phosphatase 79, Amylase 35, Lipase 266 <Figueroa Heredia - Last Filed: 02/25/20 18:55> Assessment and Plan - Plan Assessment Dry gangrene right 1st toe Multiple decubitus ulcers including left foot, right foot, sacral History of CVA with contracture of the right lower extremity End-stage renal disease on chronic hemodialysis Diabetes mellitus type 2 Hypokalemia Status post PEG tube insertion Plan Dry gangrene right 1st toe: General surgery consult in place, NPO after midnight, continue IV antibiotics, wound healing consult in place. Will hold off on DVT prophylaxis at this time for possible surgical intervention. Patient appears to be hospice appropriate but son recently revoked hospice due to wounds to foot. Will have social work discussed options with the son. Son reports that he does not want patient and facility once they care for home, per person to have caregiver. Multiple decubitus ulcers including left foot, right foot, sacral: Wound healing consult in place. History of CVA with contracture of the right lower extremity: Stable at this time End-stage renal disease on chronic hemodialysis: Nephrology consult in place, patient is not appear overload this time. Diabetes mellitus type 2: A.c. HS Accu-Cheks, sliding scale insulin therapy. Hypokalemia: Electrolyte protocol in place. Status post PEG tube insertion: Son states patient does take food and fluids and I will, was requesting that PEG tube was removed. Will have speech evaluate patient to determine if this is appropriate. Discharge Plan: Shelter Plan to discharge in: Greater than 2 days - Advance Directives Does patient have a Living Will: No Does patient have a Durable POA for Healthcare: No - Code Status/Comfort Care Code Status Assessed: Yes (DNR) Time Spent Managing Pts Care (In Minutes): 55 <Figueroa Heredia - Last Filed: 02/25/20 18:55> Physician Review Additional Text: Plan of care discussed with Figueroa Heredia, and I agree with plan as noted above. <Raza Chris - Last Filed: 02/26/20 21:15>
[2020-02-25] MEDS ORDERED: NA CHLORIDE 0.9% 500 ML ONE (19:14)
--- NOTE | 2020-02-25 19:46 | RAD REPORT ---
EXAM DESCRIPTION: CT - Head Brain Wo Cont - 02/25/2020 7:29 pm CLINICAL HISTORY: aphasia COMPARISON: 2016 TECHNIQUE: Computed axial tomography of the head was obtained. IV contrast was not requested. All CT scans are performed using dose optimization technique as appropriate and may include automated exposure control or mA/KV adjustment according to patient size. FINDINGS: Images are degraded by patient motion artifact An intracranial bleed is not seen . The ventricles are normal in caliber. No extra-axial fluid collection is noted. Moderate old left cerebral infarction. Fluid within the sinuses/ mastoids is not seen. IMPRESSION: No acute intracranial abnormality is seen. If patient's symptoms persist MRI of the bra in would be recommended.
--- NOTE | 2020-02-25 20:10 | RAD REPORT ---
EXAM DESCRIPTION: Gauri Single View02/25/2020 7:55 pm CLINICAL HISTORY: Chest pain COMPARISON: February 25, 2020 FINDINGS: The lungs appear clear of acute infiltrate. The heart is normal size. A central venous ca theter remains place IMPRESSION: No acute abnormalities displayed
[2020-02-25] MEDS ORDERED: ONDANSETRON 4 MG/2 ML VIAL IV PRN (20:54)
[2020-02-25] MEDS ORDERED: ACETAMINOPHEN 500 MG TAB PO PRN (20:54)
[2020-02-25] MEDS: INSULIN -REGULAR HUMAN 50 UNIT/0.5 ML ML SQ SCH (21:00)
[2020-02-25] MEDS ORDERED: VANCOMYCIN 1 GM in NA CHLORIDE 0.9% 500 ML IVPB SCH (21:00)
[2020-02-25 21:02] VITALS: BMI 21.7
[2020-02-26] MEDS: MORPHINE 2 MG/ML SYR IV PRN (02:50)
[2020-02-26 04:08] LABS: Absolute Lymphocytes (CBC) 0.4 K/uL (0.7-4.9); Basophils % 0.2 % (0-1.3); Hematocrit 22.2 % (36.0-45.0); MPV 7.5 fL (7.6-11.3); RBC Red Blood Cell Count 2.49 M/uL (3.86-4.86)
[2020-02-26 04:44] LABS: Magnesium 1.5 mg/dL (1.8-2.4)
[2020-02-26 04:46] LABS: Potassium 2.4 mmol/L (3.5-5.1)
[2020-02-26 05:23] LABS: Blood Morphology Comment NOT SEEN (NOT SEEN); Platelet Estimate ADEQ
[2020-02-26] MEDS: KCL 20 MEQ/100 mL IVPB 20 MEQ/100 ML BAG IV SCH ×3 (05:34→11:29)
--- NOTE | 2020-02-26 05:35 | CON ---
Date of Consultation: 02/25/2020 History Of Present Illness: This is the case of a 69-year-old female who just comes to us with a nery grene of the several digits on the right foot. Apparently, she has history of CVA, contraction of lo wer extremities, renal failure, recently in the hospital, on hemodialysis, with some dementia involve d, diabetes, hypertension, peripheral vascular disease, and then found out that she has this new find ing on the right foot. Apparently, she was in hospice. She was sent out from another institution in the hospice with also some findings but the family decided to remove the hospice tonight, she was se en in the ER, and I was called for evaluation of the right foot. Most of the information is obtained from the chart, from the primary health care provider, at this moment from the ER since patient antonio ot give much information. There is no family member present in the ER at this moment. Medications: Reviewed, include lisinopril and Norvasc. Past Medical History: Past medical problems as above, include also stroke; hypertension; hyperlipide elizabeth;, hypothyroidism; GERD; end-stage renal disease, on hemodialysis; multiple decubitus ulcers, left foot and right foot. Past Surgical History: Surgeries include heart catheterization, thyroidectomy. Family History: Diabetes. Social History: Smoking and alcohol abuse are unknown. Review of Systems: Unable to be obtained. Physical Examination: General: The patient is awake, alert, in no distress. HEENT: Pupils anicteric. Abdomen: Soft and depressible. Extremities: Patient has multiple ulcers on the right foot. Patien t has contractures in the left leg too. The patient has dry gangrene of multiple digits of the right foot, at least first and second toe, also some areas of the metatarsal region with it and that exten ds into the area of the proximal foot. Over the left foot, patient has also large decubitus ulcer on the left heel. Peripheral pulses are diminished bilaterally. Laboratory Data: Blood work shows WBC count of 7.7, hemoglobin of 8.1. INR is 1.15, potassium is 2. 3. Assessment: A 69-year-old patient with multiple medical problems and she has gangrenous changes of t he right foot. Plan: She will need at least a right below-knee amputation. She is on hospice. We are trying to co ntact the family member to see if they can agree with the amputation on the right side. Left side, m ay end up doing that but at this moment the right side is the urgent procedure. She has cardiac dise ase and renal disease, so we are going to obtain a cardiac and medical and renal clearance to see our options, though we have to proceed with this amputation if this is allowed to be done. CORY/OLEG Voice ID: [id number] Report ID: [id number]
[2020-02-26] MEDS ORDERED: NA CHLORIDE 0.9% 250 ML ONE ×2 (05:42→11:07)
[2020-02-26] MEDS ORDERED: Magnesium Sulfate 2gm IVPB 2 G/50 ML BAG IV ONE ×2 (06:00→12:00)
[2020-02-26] MEDS ORDERED: MAGNESIUM SULFATE 1 gm IVPB 1 GM/100 ML BAG IV ONE (06:00)
[2020-02-26] MEDS ORDERED: KCL 20 MEQ/100 mL IVPB 20 MEQ/100 ML BAG IV SCH (06:00)
[2020-02-26] MEDS: INSULIN -REGULAR HUMAN 50 UNIT/0.5 ML ML SQ SCH ×4 (07:30→21:00)
[2020-02-26] MEDS ORDERED: CEFTRIAXONE 1 GM/NS 50 ML 1 GM/50 ML BAG IV SCH (09:00)
[2020-02-26] MEDS: CEFTRIAXONE/SWI 1gm 1 GM/10 ML SYR IVP SCH (09:23)
[2020-02-26 12:08] LABS: Hematocrit 24.4 % (36.0-45.0)
[2020-02-26] MEDS ORDERED: NA CHLORIDE 0.9% 250 ML IV SCH (16:00)
[2020-02-26] MEDS ORDERED: EPOETIN ALFA-EPBX 10,000 UNIT/ML VIAL SQ ONE (16:12)
[2020-02-26] MEDS ORDERED: MANNITOL 25% 12.5 GM/50 ML VIAL IV PRN (16:13)
[2020-02-26] MEDS ORDERED: NA CHLORIDE 0.9% 1,000 ML IV PRN (16:13)
[2020-02-26 16:32] LABS: Magnesium 1.5 mg/dL (1.8-2.4); Potassium 3.3 mmol/L (3.5-5.1)
[2020-02-26] MEDS ORDERED: ALBUMIN HUMAN 25% 50 ML IV SCH (17:00)
[2020-02-26] MEDS ORDERED: POTASSIUM 25 MEQ EFFERV TAB PO ONE (17:29)
--- NOTE | 2020-02-26 17:46 | P.PN ---
Subjective Date of Service: 02/26/20 Primary Care Provider: Dr. Correa Chief Complaint: Right foot gangrene Subjective: No new changes Review of Systems 10-point ROS is otherwise unremarkable Physical Examination - Vital Signs Temperature: 98.6 F Blood Pressure: 170/71 Pulse: 88 Respirations: 16 Pulse Ox (%): 97 - Physical Exam General: In no apparent distress HEENT: Sclerae nonicteric Neck: No LAD Respiratory: Clear to auscultation bilaterally, Normal air movement Cardiovascular: Regular rate/rhythm, Normal S1 S2 Gastrointestinal: Soft and benign, Other (PEG Tube in place) Integumentary: Diabetic ulcer (b/l gangrene, worse on right) - Studies Laboratory Data (last 24 hrs) 02/25/20 16:55: Sodium 142, Potassium 2.3 L*, BUN 8, Creatinine 2.52 H, Glucose 127 H, Total Bilirubin 0.4, AST 11 L, ALT < 6 L, Alkaline Phosphatase 79, Amylase 35, Lipase 266 Assessment & Plan Physician Review Additional Text: Dry gangrene right 1st toe Multiple decubitus ulcers including left foot, right foot, sacral History of CVA with contracture of the right lower extremity End-stage renal disease on chronic hemodialysis Diabetes mellitus type 2 Hypokalemia Status post PEG tube insertion Plan Dry gangrene right 1st toe: General Surgery consulted, recommending BKA if family wants to pursue treatment I had a long discussion with both the daughter and the son regarding goals of care. They state that today in their father feel the patient should undergo surgical treatment Can feed today, NPO for surgery tomorrow, continue IV antibiotics, wound care consult Multiple decubitus ulcers including left foot, right foot, sacral: Wound healing consult in place. History of CVA with contracture of the right lower extremity: Stable at this time End-stage renal disease on chronic hemodialysis: Nephrology consult in place, patient is not appear overload this time. Diabetes mellitus type 2: A.c. HS Accu-Cheks, sliding scale insulin therapy. Hypokalemia: Electrolyte protocol in place. Status post PEG tube insertion: Son states patient does take food and fluids, was requesting that PEG tube was removed. Will have speech evaluate patient to determine if this is appropriate. Possible surgery tomorrow Time Spent Managing Pts Care (In Minutes): 45
[2020-02-26] MEDS: MELATONIN 5 MG TABLET PO PRN (21:48)
[2020-02-26] MEDS: GLUCERNA SHAKE 237 ML CAN PO SCH (21:49)
--- NOTE | 2020-02-26 22:40 | P.CNS ---
Date of Consult: 02/26/20 Reason for Consult: ESRD Requesting Physician: Raza Chris Primary Care Provider: Dr. Correa Chief Complaint: Right foot gangrene History of Present Illness: 69-year-old female with history of CVA with contracture of right lower extremity, end-stage renal disease on chronic hemodialysis, diabetes mellitus type 2, hypertension presents emergency department for wound to the right foot. Son reports that patient was recently seen in December at [facility] for renal failure and ended up on dialysis. Patient was placed on hospice. Son revoked hospice due to wound on foot and wanted to seek further treatment. During evaluation in the emergency department patient noted to have dry gangrene of the right 1st and 2nd toes. Patient also with multiple decubitus wounds to right and left foot as well as sacral area. Patient also noted to have elevated troponin at 0.10. ED provider wishes to admit patient for further evaluation and management. 08:28 This 69 yrs old Female presents to ER via EMS with complaints of Right foot infection. 08:28 The patient was sent by Dr. Vallejo's office for evaluation of possible gangrene to right foot. The patient is unable to give any history and is a poor historian. Limited HPI/ ROS due to dementia. Allergies aspirin Allergy (Verified 02/26/20 01:13) Nausea/Vomiting Home medications list reviewed: Yes Home Medications: Amantadine HCl [Amantadine] 50 mg PO DAILY 02/26/20 Amlodipine [Norvasc*] 10 mg PO DAILY 02/26/20 Baclofen 5 mg PO M,W,F 02/26/20 Calcitriol [Rocaltrol] 0.25 mcg PO M,W,F 02/26/20 Carvedilol [Coreg] 25 mg PO Q12H 02/26/20 Clopidogrel Bisulfate [Plavix*] 75 mg PO DAILY 02/26/20 Furosemide [Lasix*] 2 tab PO Q7D 02/26/20 Furosemide [Lasix] 80 mg PO DAILY 02/26/20 Linagliptin [Tradjenta] 5 mg PO DAILY 02/26/20 Losartan Potassium 25 mg PO DAILY 02/26/20 Losartan Potassium 25 mg PO DAILY 02/26/20 Omeprazole 20 mg PO BID 02/26/20 Sertraline [Zoloft*] 25 mg PO DAILY 02/26/20 - Past Medical/Surgical History Diabetic: Yes -: HX OF STROKE IN 2001,2012 -: HYPERTENSION -: HYPERLIPIDEMIA -: HYPOTHYROIDISM -: GERD -: Right eye double vision -: ESRd on dialysis -: Multiple decubitus ulcers -: HEART CATH -: THYROIDECTOMY Psychosocial/ Personal History: Patient lives at home with her son, hospice was revoked - Family History Sister Medical History: Diabetes - Social History Smoking Status: Never smoker Alcohol use: No CD- Drugs: No Caffeine use: Yes Place of Residence: Home Review of Systems 10-point ROS is otherwise unremarkable General: Weakness, Malaise Respiratory: SOB with Excertion Neurological: Weakness Physical Examination Temp Pulse Resp BP Pulse Ox 97.3 F 97 H 18 167/75 H 93 02/26/20 20:00 02/26/20 20:00 02/26/20 20:00 02/26/20 20:00 02/26/20 20:00 General: In no apparent distress, Cooperative HEENT: Atraumatic Neck: Supple Respiratory: Clear to auscultation bilaterally Cardiovascular: No edema, Regular rate/rhythm Gastrointestinal: Soft and benign, Non-distended Musculoskeletal: No clubbing, No contractures Integumentary: No rashes, No cyanosis Neurological: Abnormal speech Blood work reviewed in the chart. Imagings Data: EXAM DESCRIPTION: Gauri Single View02/25/2020 7:55 pm CLINICAL HISTORY: Chest pain COMPARISON: February 25, 2020 FINDINGS: The lungs appear clear of acute infiltrate. The heart is normal size. A central venous catheter remains place IMPRESSION: No acute abnormalities displayed Conclusions/Impression: A/ ESRD on HD Hypokalemia Hypocalcemia Hypomagnesemia HTN with CKD/ CHF Diastolic CHF, chronic DM II with CKD Moderate malnutrition Anemia in CKD TAO/ Secondary HyperPTH Gangrene right first toe. P/ Continue current POC and Medications. Arrange for acute HD. Restart home medications as indicated. Give Epo. Start low dose Ramipril. No NSAIDs. AM labs. Daily weight. The patient may proceed with surgery of the foot from the nephrology standpoint. Thank you kindly for the consultation.
[2020-02-26 23:46] LABS: Potassium 3.9 mmol/L (3.5-5.1)
[2020-02-27 05:44] LABS: Absolute Lymphocytes (CBC) 1.5 K/uL (0.7-4.9); Basophils % 0.5 % (0-1.3); Hematocrit 21.2 % (36.0-45.0); Lymphocytes % 10.9 % (15.3-44.8); MPV 7.5 fL (7.6-11.3); RBC Red Blood Cell Count 2.36 M/uL (3.86-4.86)
[2020-02-27] MEDS: INSULIN -REGULAR HUMAN 50 UNIT/0.5 ML ML SQ SCH ×4 (07:30→21:00)
[2020-02-27] MEDS: CEFTRIAXONE/SWI 1gm 1 GM/10 ML SYR IVP SCH ×2 (09:00→12:07)
[2020-02-27] MEDS: GLUCERNA SHAKE 237 ML CAN PO SCH ×2 (09:00→20:17)
[2020-02-27] MEDS ORDERED: NA CHLORIDE 0.9% 250 ML ONE (10:00)
--- NOTE | 2020-02-27 12:12 | P.PN ---
Subjective Date of Service: 02/27/20 Primary Care Provider: Dr. Correa Chief Complaint: Right foot gangrene Subjective: Improving (slight improvement, AAOx3, telling me she might not want the surgery today) Review of Systems 10-point ROS is otherwise unremarkable Physical Examination - Vital Signs Temperature: 98.5 F Blood Pressure: 154/77 Pulse: 99 Respirations: 20 Pulse Ox (%): 95 - Physical Exam General: Alert, In no apparent distress HEENT: Sclerae nonicteric Neck: Supple, No LAD Respiratory: Clear to auscultation bilaterally, Normal air movement Cardiovascular: Regular rate/rhythm, Normal S1 S2 Gastrointestinal: Soft and benign, Non-distended, No tenderness Integumentary: Other (RLE: R forefoot with black eschar, dry gangrene. RLE: hip/thigh contracture) Assessment & Plan Physician Review Additional Text: Dry gangrene right forefoot: General Surgery consulted, recommending BKA long discussion with family today (patient, , son). Patient initially stated she may not want surgery, after discussion with family she wants to proceed she does seem to understand the options and consequences. NPO, Antibiotics Anemia of chronic disease -chronically low, but now <8.0, blood transfusion received with dialysis this morning Multiple decubitus ulcers including left foot, right foot, sacral: Wound care consult in place. History of CVA with contracture of the right lower extremity: Stable at this time End-stage renal disease on chronic hemodialysis: Nephrology consult in place Diabetes mellitus type 2: A.c. HS Accu-Cheks, sliding scale insulin therapy. Hypokalemia: Electrolyte protocol in place. Status post PEG tube insertion: Son states patient does take food and fluids, was requesting that PEG tube was removed. Will have speech evaluate patient to determine if this is appropriate. Dispo: Surgery today, possible DC in next ~2 days Time Spent Managing Pts Care (In Minutes): 55
[2020-02-27] MEDS ORDERED: LIDOCAINE 1% MPF 2 ML AMPULE ONE (12:31)
[2020-02-27] MEDS ORDERED: MIDAZOLAM HCL 2 MG/2 ML INJ ONE ×2 (12:32→12:35)
[2020-02-27] MEDS ORDERED: dexAMETHasone 10 MG/ML VIAL ONE (12:35)
[2020-02-27] MEDS ORDERED: propofoL 200 MG/20 ML VIAL IV ONE (12:35)
[2020-02-27] MEDS ORDERED: FENTANYL CITR 100 MCG/2 ML ONE ×2 (12:35→12:44)
[2020-02-27] MEDS ORDERED: LIDOCAINE 2% MPF 5 ML VIAL ONE (12:36)
[2020-02-27] MEDS ORDERED: ONDANSETRON 4 MG/2 ML VIAL ONE (12:36)
[2020-02-27] MEDS ORDERED: ROCURONIUM 50 MG/5 ML VIAL IV ONE (12:37)
[2020-02-27] MEDS ORDERED: NA CHLORIDE 0.9% 1,000 ML ONE (12:37)
[2020-02-27] MEDS ORDERED: EPINEPHRINE/PF 1 MG/ML AMP ONE (12:57)
--- NOTE | 2020-02-27 14:09 | P.BOP ---
Preoperative diagnosis: right foot gangrene Postoperative diagnosis: same Primary procedure: R BKA Shingler: Sarah Wilson (Sukhinfa) Estimated blood loss: <50CC Specimen: FOOT Findings: ABOVE Anesthesia: Spinal Complications: None Drain(s): TIP drain Transferred to: Recovery Room Condition: Good
[2020-02-27 15:04] LABS: Hematocrit 26.3 % (36.0-45.0)
[2020-02-27] MEDS: MORPHINE 2 MG/ML SYR IV PRN ×2 (17:37→18:16)
[2020-02-27] MEDS ORDERED: VANCOMYCIN/NS 1 gm 1 GM/250 ML BAG IV SCH (19:00)
[2020-02-27] MEDS: VANCOMYCIN 500 MG in NA CHLORIDE 0.9% 100 ML IVPB SCH (19:11)
[2020-02-27] MEDS: HYDROCODONE/APAP 5/325 MG TAB PO PRN (20:16)
[2020-02-27] MEDS: MELATONIN 5 MG TABLET PO PRN (20:16)
[2020-02-27] MEDS: MORPHINE 4 MG/ML SYR IV PRN (22:40)
--- NOTE | 2020-02-27 23:06 | P.PN ---
Date of Service: 02/27/20 Vital Signs Temp Pulse Resp BP Pulse Ox 97 F 87 18 179/85 H 100 02/27/20 20:00 02/27/20 20:16 02/27/20 20:00 02/27/20 20:16 02/27/20 20:00 Medications Acetaminophen (Tylenol -Extra Strength) 500 mg PO Q4HP PRN PRN Reason: TEMP > 100' F Stop: 03/26/20 20:55 Hydrocodone Bitart/Acetaminophen (Catron 5/325) 1 tab PO Q6H PRN PRN Reason: Pain scale 5-7 (Moderate) Stop: 03/26/20 20:55 Last Admin: 02/27/20 20:16 Dose: 1 tab Documented by: Calcitriol (Rocaltrol) 0.5 mcg PO DAILY MABLE Stop: 03/29/20 09:01 Carvedilol (Coreg) 6.25 mg PO BID MBALE Stop: 03/29/20 09:01 Cholecalciferol (Vitamin D 5,000 Iu Cap) 5,000 unit PO DAILY MABLE Stop: 03/29/20 09:01 Enteral Nutritional Formula (Glucerna Shake) 237 ml PO BID MABLE Stop: 03/27/20 21:01 Last Admin: 02/27/20 20:17 Dose: 237 ml Documented by: Heparin Sodium (Porcine) (Heparin 1,000 Units/Ml) 6,000 unit IV EVERY HD PRN PRN Reason: AFTER EACH Stop: 03/27/20 16:14 Ceftriaxone Sodium/Sodium Chloride (Rocephin 1 Gm/10 Ml Swi Ivp) 1 gm in 10 mls @ 600 mls/hr IVP DAILY MABLE Stop: 03/27/20 09:01 Last Admin: 02/27/20 12:07 Dose: 10 mls Documented by: Sodium Chloride (Sodium Chloride) 250 mls @ 0 mls/hr IV .Q0M MABLE Stop: 03/27/20 16:01 Albumin Human (Albumin 25%) 50 mls @ 100 mls/hr IV EVERY HD MABLE Stop: 03/27/20 17:01 Vancomycin HCl 500 mg/ Sodium (Chloride) 100 mls @ 100 mls/hr IVPB AFTER EACH DIALYSIS MABLE Stop: 03/28/20 17:16 Last Admin: 02/27/20 19:11 Dose: 100 mls Documented by: Insulin Human Regular (Novolin -R) 0 unit SQ ACHS [facility]; Protocol Stop: 03/26/20 21:01 Last Admin: 02/27/20 16:30 Dose: Not Given Documented by: Mannitol (Mannitol 12.5 Gm/50 Ml Vial) 12.5 gm IV EVERY HD PRN PRN Reason: Titrate to SBP (MUST DEFINE) Stop: 03/27/20 16:14 Melatonin (Melatonin) 5 mg PO BEDTIME PRN PRN PRN Reason: SEDATION Stop: 03/27/20 19:15 Last Admin: 02/27/20 20:16 Dose: 5 mg Documented by: Morphine Sulfate (Morphine Sulfate) 2 mg IV Q4H PRN PRN Reason: Pain scale 5-7 (Moderate) Stop: 03/26/20 20:55 Last Admin: 02/27/20 18:16 Dose: 2 mg Documented by: Morphine Sulfate (Morphine Sulfate) 4 mg IV Q4H PRN PRN Reason: Pain scale 8-10 (Severe) Stop: 03/28/20 17:59 Last Admin: 02/27/20 22:40 Dose: 4 mg Documented by: Ondansetron HCl (Zofran) 4 mg IV Q6HP PRN PRN Reason: NAUSEA / VOMITING Stop: 03/26/20 20:55 Ramipril (Altace) 5 mg PO BEDTIME [facility] Stop: 03/29/20 21:01 Sodium Chloride (Normal Saline Flush) 10 ml IV BID [facility] Stop: 03/26/20 21:01 Last Admin: 02/27/20 20:17 Dose: 10 ml Documented by: Vitamin B Complex/Vit C/Folic Acid (Nephro-Ignacio) 1 tab PO DAILY [facility] Stop: 03/29/20 09:01 Microbiology Results 02/25/20 18:02 Clean Catch Urine [place] Count - Preliminary >100,000 CFU/ML. 02/25/20 18:02 Clean Catch Urine - Preliminary 02/25/20 18:02 Blood - Blood Aerobic Blood Culture - Preliminary No growth in 24 hours. 02/25/20 18:02 Blood - Blood Anaerobic Blood Culture - Preliminary No growth in 24 hours. 02/25/20 16:55 Blood - Blood Aerobic Blood Culture - Preliminary No growth in 24 hours. 02/25/20 16:55 Blood - Blood Anaerobic Blood Culture - Preliminary No growth in 24 hours. Assessment/ Plan: Nephrology CPS stable without CP or SOB. No acute events overnight. Limited IH/ ROS due to confusion. Vitals, medications, blood work and imaging reviewed in the chart. General: In no apparent distress, Cooperative HEENT: Atraumatic Neck: Supple Respiratory: Clear to auscultation bilaterally Cardiovascular: No edema, Regular rate/rhythm Gastrointestinal: Soft and benign, Non-distended Musculoskeletal: No clubbing, No contractures Integumentary: No rashes, No cyanosis Neurological: Abnormal speech Blood work reviewed in the chart. Imagings Data: EXAM DESCRIPTION: Gauri Single View02/25/2020 7:55 pm CLINICAL HISTORY: Chest pain COMPARISON: February 25, 2020 FINDINGS: The lungs appear clear of acute infiltrate. The heart is normal size. A central venous catheter remains place IMPRESSION: No acute abnormalities displayed Conclusions/Impression: A/ ESRD on HD Hypokalemia Hypocalcemia Hypomagnesemia HTN with CKD/ CHF Diastolic CHF, chronic DM II with CKD Moderate malnutrition Anemia in CKD TAO/ Secondary HyperPTH Gangrene right first toe. P/ Continue current POC and Medications. HD TIW. Next HD Sunday. Start Vitamin D. Increase Ramipril. Start Coreg. Start MVI. Retacrit TIW. No NSAIDs. AM labs. Daily weight.
--- NOTE | 2020-02-28 00:04 | OP ---
Date of Procedure: 02/27/2020 Surgeon: Frank Sibley MD Preoperative Diagnosis: Right foot gangrene. Postoperative Diagnosis: Right foot gangrene. Procedure: Right below-knee amputation. Anesthesia: Spinal. Complications: None. Indications: This is a case of a 69-year-old patient, who need amputation due to gangrene of the rig ht foot. The family fully explained and the patient fully explained the benefits, alternatives, and risks, which include, but not limited to infection, bleeding, damage to adjacent structures, anesthes ia complication, nonhealing wound, MO, and even . She also understands this may not relieve the symptoms. She might need more than one surgical intervention. She understood and signed a consent. Description Of Procedure: The patient was brought to the operating room and placed in supine positio n. Anesthesia was done without complication. Spinal was done by the Anesthesia Department. The rig ht leg was prepped and draped in a sterile fashion. A time-out was called. After that, we make a sk in incision in the anterior area after the area was outlined first with a marking pen. The anterior skin incision was made about 2 cm below the tibial tuberosity and extended medially and lateral towar ds the edge of the gastrocnemius muscle. The incision was extended all the way in either side creati ng a posterior flap. The skin and subcutaneous tissue were incised with the help of a knife and Bovi e cauterizer. The saphenous veins were identified and ligated. The fascia and the muscle were divid ed with electrocautery at the same level of the anterior skin incision. The muscle of anterior jenny rtment and lateral compartments were divided carefully exposing the tibial vessels, although not that functional still and they were ligated with 0 silk. The tibial periosteum was incised circumferenti ally and used a periosteal elevator to strip the tibial periosteum proximally for about 2 cm. We use d a Gigli saw to transect the tibia approximately 2 cm proximal to anterior with an anterior bevel. The fibula then was exposed, dissected circumferentially, and transected with a bone cutter. The amp utation was then completed transecting the soleus muscle obliquely and the gastrocnemius muscle at th e same level. Hemostasis was obtained. The bony edges of the tibia and fibula were filed. The fasc ia of the anterior and posterior muscle were approximated and identified. First, we put a TIP drain o bety that area and then after that, those fascias were approximated using #1 Vicryl. The skin was shaina roximated with 3-0 chromic and skin staple. TIP was secured in place with 3-0 nylon and connected to bulb suction. The patient tolerated the procedure well. Area covered with sterile dressings. The p atient in her way to recovery in stable condition. COYR/OLEG Voice ID: [id number] Report ID: [id number]
[2020-02-28] MEDS: HYDROCODONE/APAP 5/325 MG TAB PO PRN (05:23)
[2020-02-28 07:01] LABS: Absolute Lymphocytes (CBC) 0.8 K/uL (0.7-4.9); Basophils % 0.4 % (0-1.3); Hematocrit 25.4 % (36.0-45.0); Lymphocytes % 6.7 % (15.3-44.8); MPV 7.6 fL (7.6-11.3); RBC Red Blood Cell Count 2.82 M/uL (3.86-4.86)
[2020-02-28] MEDS: INSULIN -REGULAR HUMAN 50 UNIT/0.5 ML ML SQ SCH ×4 (07:30→21:00)
[2020-02-28] MEDS ORDERED: carvediloL 6.25 MG TAB PO SCH (09:00)
--- NOTE | 2020-02-28 09:18 | P.PN ---
Subjective Date of Service: 02/28/20 Primary Care Provider: Dr. Correa Chief Complaint: Right foot gangrene s/p R BKA yesterday, patient appears upset today, she is not wanting to talk to me when asked about the left foot, patient adamantly said she does not want surgery / amputation on left foot if needed. Review of Systems 10-point ROS is otherwise unremarkable Physical Examination - Vital Signs Temperature: 96 F Blood Pressure: 183/79 Pulse: 85 Respirations: 18 Pulse Ox (%): 96 - Physical Exam General: Alert, In no apparent distress HEENT: Mucous membr. moist/pink, Sclerae nonicteric Neck: Supple, No LAD Respiratory: Clear to auscultation bilaterally, Normal air movement Cardiovascular: Regular rate/rhythm, Normal S1 S2 Gastrointestinal: Soft and benign, Non-distended, Other (PEG tube in place, no surrounding erythema) Integumentary: Other (R leg with surgical dressing, wrapped in GALEN bandage, TIP d rain with serosanguinous output) Neurological: Other (understands what i am saying, but not responding to my questions) - Studies Microbiology Data (last 24 hrs): 02/25/20 18:02 Clean Catch Urine [place] Count - Final >100,000 CFU/ML. 02/25/20 18:02 Clean Catch Urine - Final Assessment & Plan Physician Review Additional Text: Dry gangrene right 1st toe, s/p R BKA (02/27/20) Multiple decubitus ulcers including left foot, right foot, sacral History of CVA with contracture of the right lower extremity End-stage renal disease on chronic hemodialysis Diabetes mellitus type 2 Hypokalemia Status post PEG tube insertion Dry gangrene right forefoot , s/p R BKA (02/27/20) -s/p BKA (02/26) -general surgery following, pain control, IV Abx -patient appears upset this morning, would not talk to me, except saying she did not want any surgery on her left foot -diet as tolerated Anemia of chronic disease -chronically low, transfused 1uPRBC on morning of 02/26 with dialysis Multiple decubitus ulcers including left foot, right foot, sacral: Wound care consulted History of CVA with contracture of the right lower extremity: Stable at this time End-stage renal disease on chronic hemodialysis: Nephrology consulted Diabetes mellitus type 2: A.cParviz HS Accu-Cheks, sliding scale insulin therapy. Hypokalemia: Electrolyte protocol in place. Status post PEG tube insertion: Son states patient does take food and fluids, was requesting that PEG tube was removed. Dispo: s/p BKA, may need debridement of L foot/heel, anticipate dc in ~2 days Time Spent Managing Pts Care (In Minutes): 35
[2020-02-28 09:21] LABS: Blood Morphology Comment NOT SEEN (NOT SEEN); Platelet Estimate ADEQ; White Blood Cell Scan OK (OK)
[2020-02-28] MEDS: CEFTRIAXONE/SWI 1gm 1 GM/10 ML SYR IVP SCH (09:57)
[2020-02-28] MEDS: VITAMIN D 5,000 UNIT CAP PO SCH (09:58)
[2020-02-28] MEDS: CALCITROL 0.25 MCG CAP PO SCH (09:58)
[2020-02-28] MEDS: MULTIVITAMINS,THERAPEUT 1 TAB PO SCH (09:58)
[2020-02-28] MEDS: GLUCERNA SHAKE 237 ML CAN PO SCH ×2 (10:00→21:07)
[2020-02-28] MEDS: MORPHINE 4 MG/ML SYR IV PRN ×2 (10:16→22:52)
[2020-02-28] MEDS ORDERED: HYDRALAZINE HCL 20 MG/ML VIAL IV PRN (17:22)
[2020-02-28] MEDS: carvediloL 25 MG TAB PO SCH (18:03)
[2020-02-28] MEDS: MELATONIN 5 MG TABLET PO PRN (21:07)
[2020-02-28] MEDS: PANTOPRAZOLE 40MG TABLET PO SCH (21:07)
[2020-02-28] MEDS: ramipriL 5 MG CAP PO SCH (21:07)
[2020-02-29] MEDS: MORPHINE 4 MG/ML SYR IV PRN (04:49)
[2020-02-29] MEDS: PANTOPRAZOLE 40MG TABLET PO SCH (04:50)
[2020-02-29] MEDS: carvediloL 25 MG TAB PO SCH ×2 (04:50→17:01)
[2020-02-29 06:07] LABS: Absolute Lymphocytes (CBC) 0.7 K/uL (0.7-4.9); Basophils % 0.8 % (0-1.3); Hematocrit 23.3 % (36.0-45.0); Lymphocytes % 7.8 % (15.3-44.8); MPV 8.3 fL (7.6-11.3); RBC Red Blood Cell Count 2.59 M/uL (3.86-4.86)
[2020-02-29 06:16] LABS: Potassium 4.1 mmol/L (3.5-5.1)
[2020-02-29] MEDS: INSULIN -REGULAR HUMAN 50 UNIT/0.5 ML ML SQ SCH ×4 (07:30→20:32)
[2020-02-29] MEDS: VITAMIN D 5,000 UNIT CAP PO SCH (09:00)
[2020-02-29] MEDS: MULTIVITAMINS,THERAPEUT 1 TAB PO SCH (09:00)
[2020-02-29] MEDS: CALCITROL 0.25 MCG CAP PO SCH (09:00)
[2020-02-29] MEDS: AMLODIPINE 10 MG TAB PO SCH (09:00)
[2020-02-29] MEDS: AMANTADINE HCL 50 MG PO SCH (09:00)
[2020-02-29] MEDS: GLUCERNA SHAKE 237 ML CAN PO SCH ×2 (09:00→21:07)
[2020-02-29] MEDS: CEFTRIAXONE/SWI 1gm 1 GM/10 ML SYR IVP SCH (09:01)
[2020-02-29] MEDS: SERTRALINE HCL 50 MG TAB PO SCH (09:01)
--- NOTE | 2020-02-29 09:16 | P.PN ---
Subjective Date of Service: 02/29/20 Primary Care Provider: Dr. Correa Chief Complaint: Right foot gangrene reports feeling better today, pain is controlled at this time Review of Systems 10-point ROS is otherwise unremarkable Physical Examination - Vital Signs Temperature: 98.5 F Blood Pressure: 171/77 Pulse: 73 Respirations: 17 Pulse Ox (%): 99 - Physical Exam General: Alert, In no apparent distress, Oriented x2 HEENT: EOMI, Sclerae nonicteric Neck: Supple, No LAD Respiratory: Clear to auscultation bilaterally, Diminished (at bases ) Cardiovascular: No edema, Regular rate/rhythm, Normal S1 S2 Gastrointestinal: Soft and benign, Non-distended, Other (PEG Tube in place) Musculoskeletal: Other (R BKA wrapped in GALEN bandage, TIP drain with serosanguinous output) Integumentary: Other (L heel: pressure ulcer, no drainage) - Studies Microbiology Data (last 24 hrs): 02/25/20 18:02 Clean Catch Urine [place] Count - Final >100,000 CFU/ML. 02/25/20 18:02 Clean Catch Urine - Final Assessment & Plan Physician Review Additional Text: Dry gangrene right 1st toe, s/p R BKA (02/27/20) Multiple decubitus ulcers including left foot, right foot, sacral Status post PEG tube insertion History of CVA with contracture of the right lower extremity End-stage renal disease on chronic hemodialysis Diabetes mellitus type 2 Hypokalemia Dry gangrene right forefoot , s/p R BKA (02/27/20) -s/p BKA (02/26) -general surgery following, pain control, IV Abx -doing better this morning, TIP drain with serosanguineous output -diet as tolerated Anemia of chronic disease -chronically low, transfused 1uPRBC on morning of 02/26 with dialysis -again <8.0 this morning, will transfuse 1uPRBC today, check post H/H Multiple decubitus ulcers including left foot, right foot, sacral -Wound care consulted -surgery stated may need L foot debridement or more extensive surgery -pt told me on 02/27 she refuse any more amputations at this time. Status post PEG tube insertion -Son states patient does take food and fluids, was requesting that PEG tube was removed. HTN -restarted home meds post-operatively / after speech eval History of CVA with contracture of the right lower extremity: Stable at this time End-stage renal disease on chronic hemodialysis: Nephrology consulted Diabetes mellitus type 2: Daniella ALVAREZ Accu-Cheks, sliding scale insulin therapy. Hypokalemia: Electrolyte protocol in place. Dispo: s/p BKA, may need debridement of L foot/heel, anticipate dc in ~1-2 days Time Spent Managing Pts Care (In Minutes): 30
[2020-02-29] MEDS ORDERED: NA CHLORIDE 0.9% 250 ML IV SCH (10:00)
--- NOTE | 2020-02-29 10:50 | CON ---
Date of Consultation: 02/26/2020 The patient admitted to Dr. Chris's service on 02/25/2020. I saw the patient on 02/26/2020. Reason For Consultation: Cardiac clearance for a BKA secondary to gangrene in the right foot. History Of Present Illness: Ms. Salamanca is a 69-year-old. Has a history of end-stage renal disease, o n hemodialysis. She has diabetes, hypertension, dyslipidemia, coronary artery disease, and history o f CVA. Came in with a gangrenous right foot. There was a plan for an amputation. We are asked to c lear her. The patient does not have congestive heart failure and she is not having any chest pain. Denied any shortness of breath, nausea, vomiting, diaphoresis, PND, orthopnea, pedal edema, palpitati ons, or syncope. She is, however, a hemodialysis patient. Creatinine is 3.5. She came in with hypo kalemia that has been corrected. Has a troponin of 0.12, probably secondary to her renal failure. Past Medical History: As stated above. Allergies: NONE. Review of Systems: Negative. Social History: Positive for her being a do not resuscitate. Medications: At home include Norvasc, Coreg, Plavix, Lasix, Zoloft, losartan, and Tradjenta. Physical Examination: General: She appeared to be in no acute distress. Vital Signs: Stable. She was in a sinus rhythm. HEENT: Negative. Neck: Supple without any bruit. Chest: Clear. Cardiac: Revealed a regular rhythm and rate with an S4, gallops. No murmurs or rubs. Abdomen: Benign. Extremities: Revealed gangrene at the right foot. Impression And Plan: Gangrenous right foot with severe peripheral vascular disease, planning for a b elow-knee amputation. The patient is on her home medications plus ramipril and epoetin. Plavix has been held, planning for right below-knee amputation. The patient is moderate risk for perioperative mortality because of her multiple problems including coronary artery disease and end-stage renal dise ase. Surgery, however, is necessary. Her other medical problems including end-stage renal disease, diabetes, hypertension, dyslipidemia, cerebrovascular accident and coronary artery disease appeared t o be stable. Her hypokalemia was corrected. Her troponin elevation is secondary to renal failure. There is no clinical evidence now of coronary artery disease or congestive heart failure, and there i s no symptoms of coronary artery disease or congestive heart failure. We will be available for quest ions postoperatively. We will continue to follow her. VIRGIE Voice ID: [id number] Report ID: [id number]
--- NOTE | 2020-02-29 10:57 | PN ---
Date of Progress Note: 02/27/2020 Ms. Salamanca was seen on 02/26/2020 for cardiac clearance prior to a BKA. She has multiple medical issu es including end-stage renal disease, on hemodialysis, hypokalemia that has been corrected, slightly elevated troponin secondary to renal failure. She has diabetes, hypertension, history of CAD and CVA , but no symptoms of CHF or coronary artery disease at the present. She has dyslipidemia that is amy ng treated. She was on her home medications plus ramipril and epoetin. Apparently, the surgery has not been done yet. There were decisions that are being discussed between Dr. Chris and the family re garding possible hospice care. No surgery. She is a do not resuscitate. I will sign off her case f or now. If she gets operated on, we will continue to follow her. No change in her medical therapy i s recommended at this point. She remained in sinus rhythm. AUDRA/OLEG Voice ID: [id number] Report ID: [id number]
[2020-02-29] MEDS: MORPHINE 2 MG/ML SYR IV PRN ×2 (16:03→22:29)
[2020-02-29 16:14] LABS: Hematocrit 26.2 % (36.0-45.0)
--- NOTE | 2020-02-29 20:48 | P.PN ---
Date of Service: 02/29/20 Vital Signs Temp Pulse Resp BP Pulse Ox 97.6 F 64 18 160/69 H 98 02/29/20 20:00 02/29/20 20:00 02/29/20 20:00 02/29/20 20:00 02/29/20 20:00 Medications Acetaminophen (Tylenol -Extra Strength) 500 mg PO Q4HP PRN PRN Reason: TEMP > 100' F Stop: 03/26/20 20:55 Hydrocodone Bitart/Acetaminophen ([place] 5/325) 1 tab PO Q6H PRN PRN Reason: Pain scale 5-7 (Moderate) Stop: 03/26/20 20:55 Last Admin: 02/28/20 05:23 Dose: 1 tab Documented by: Amlodipine Besylate (Norvasc) 10 mg PO DAILY MABLE Stop: 03/30/20 09:01 Last Admin: 02/29/20 09:00 Dose: 10 mg Documented by: Baclofen (Lioresal) 5 mg PO M,W,F MABLE Stop: 03/31/20 17:01 Calcitriol (Rocaltrol) 0.5 mcg PO DAILY MABLE Stop: 03/29/20 09:01 Last Admin: 02/29/20 09:00 Dose: 0.5 mcg Documented by: Carvedilol (Coreg) 25 mg PO Q12H MABLE Stop: 03/29/20 18:01 Last Admin: 02/29/20 17:01 Dose: 25 mg Documented by: Cholecalciferol (Vitamin D 5,000 Iu Cap) 5,000 unit PO DAILY MABLE Stop: 03/29/20 09:01 Last Admin: 02/29/20 09:00 Dose: 5,000 unit Documented by: Emollient Gel ([facility]) 1 appl TOP DAILY MABLE Stop: 03/31/20 09:01 Enteral Nutritional Formula (Glucerna Shake) 237 ml PO BID MABLE Stop: 03/27/20 21:01 Last Admin: 02/29/20 09:00 Dose: Not Given Documented by: Heparin Sodium (Porcine) (Heparin 1,000 Units/Ml) 6,000 unit IV EVERY HD PRN PRN Reason: AFTER EACH Stop: 03/27/20 16:14 Home Med (Amantadine Hcl [Amantadine]) 50 mg PO DAILY MABLE Stop: 03/30/20 09:01 Last Admin: 02/29/20 09:00 Dose: Not Given Documented by: Hydralazine HCl (Apresoline) 10 mg IV Q6HP PRN PRN Reason: Titrate to SBP (MUST DEFINE) Stop: 03/29/20 17:23 Ceftriaxone Sodium/Sodium Chloride (Rocephin 1 Gm/10 Ml Swi Ivp) 1 gm in 10 mls @ 600 mls/hr IVP DAILY [facility] Stop: 03/27/20 09:01 Last Admin: 02/29/20 09:01 Dose: 10 mls Documented by: Sodium Chloride (Sodium Chloride) 250 mls @ 0 mls/hr IV .Q0M MABLE Stop: 03/27/20 16:01 Last Admin: 02/29/20 10:33 Dose: 250 mls Documented by: Albumin Human (Albumin 25%) 50 mls @ 100 mls/hr IV EVERY HD MABLE Stop: 03/27/20 17:01 Vancomycin HCl 500 mg/ Sodium (Chloride) 100 mls @ 100 mls/hr IVPB AFTER EACH DIALYSIS [facility] Stop: 03/28/20 17:16 Last Admin: 02/27/20 19:11 Dose: 100 mls Documented by: Sodium Chloride (Sodium Chloride) 250 mls @ 0 mls/hr IV .Q0M [facility] Stop: 03/30/20 10:01 Insulin Human Regular (Novolin -R) 0 unit SQ ACHS [facility]; Protocol Stop: 03/26/20 21:01 Last Admin: 02/29/20 20:32 Dose: Not Given Documented by: Mannitol (Mannitol 12.5 Gm/50 Ml Vial) 12.5 gm IV EVERY HD PRN PRN Reason: Titrate to SBP (MUST DEFINE) Stop: 03/27/20 16:14 Melatonin (Melatonin) 5 mg PO BEDTIME PRN PRN PRN Reason: SEDATION Stop: 03/27/20 19:15 Last Admin: 02/28/20 21:07 Dose: 5 mg Documented by: Morphine Sulfate (Morphine Sulfate) 2 mg IV Q4H PRN PRN Reason: Pain scale 5-7 (Moderate) Stop: 03/26/20 20:55 Last Admin: 02/29/20 16:03 Dose: 2 mg Documented by: Morphine Sulfate (Morphine Sulfate) 4 mg IV Q4H PRN PRN Reason: Pain scale 8-10 (Severe) Stop: 03/28/20 17:59 Last Admin: 02/29/20 04:49 Dose: 4 mg Documented by: Ondansetron HCl (Zofran) 4 mg IV Q6HP PRN PRN Reason: NAUSEA / VOMITING Stop: 03/26/20 20:55 Pantoprazole Sodium (Protonix Tab) 40 mg PO DAILYAC [facility] Stop: 03/29/20 21:01 Last Admin: 02/29/20 04:50 Dose: 40 mg Documented by: Ramipril (Altace) 5 mg PO BEDTIME MABLE Stop: 03/29/20 21:01 Last Admin: 02/28/20 21:07 Dose: 5 mg Documented by: Sertraline HCl (Zoloft) 25 mg PO DAILY MABLE Stop: 03/30/20 09:01 Last Admin: 02/29/20 09:01 Dose: 25 mg Documented by: Sodium Chloride (Normal Saline Flush) 10 ml IV BID [facility] Stop: 03/26/20 21:01 Last Admin: 02/29/20 09:01 Dose: 10 ml Documented by: Vitamin B Complex/Vit C/Folic Acid (Nephro-Ignacio) 1 tab PO DAILY MABLE Stop: 03/29/20 09:01 Last Admin: 02/29/20 09:00 Dose: 1 tab Documented by: Microbiology Results 02/25/20 18:02 Clean Catch Urine [place] Count - Final >100,000 CFU/ML. 02/25/20 18:02 Clean Catch Urine - Final 02/25/20 18:02 Blood - Blood Aerobic Blood Culture - Preliminary No growth in 24 hours. 02/25/20 18:02 Blood - Blood Anaerobic Blood Culture - Preliminary No growth in 24 hours. 02/25/20 16:55 Blood - Blood Aerobic Blood Culture - Preliminary No growth in 24 hours. 02/25/20 16:55 Blood - Blood Anaerobic Blood Culture - Preliminary No growth in 24 hours. Assessment/ Plan: Nephrology CPS stable without CP or SOB. No acute events overnight. Limited IH/ ROS due to confusion. Vitals, medications, blood work and imaging reviewed in the chart. General: In no apparent distress, Cooperative HEENT: Atraumatic Neck: Supple Respiratory: Clear to auscultation bilaterally Cardiovascular: No edema, Regular rate/rhythm Gastrointestinal: Soft and benign, Non-distended Musculoskeletal: No clubbing, No contractures Integumentary: No rashes, No cyanosis Neurological: Abnormal speech Blood work reviewed in the chart. Imagings Data: EXAM DESCRIPTION: Gauri Single View02/25/2020 7:55 pm CLINICAL HISTORY: Chest pain COMPARISON: February 25, 2020 FINDINGS: The lungs appear clear of acute infiltrate. The heart is normal size. A central venous catheter remains place IMPRESSION: No acute abnormalities displayed Conclusions/Impression: A/ ESRD on HD Hypokalemia Hypocalcemia Hypomagnesemia HTN with CKD/ CHF Diastolic CHF, chronic DM II with CKD Moderate malnutrition Anemia in CKD TAO/ Secondary HyperPTH Gangrene right first toe. P/ Continue current POC and Medications. HD TIW. Next HD Sunday. Increase Ramipril 10mg qhs. Retacrit TIW. Wound care as ordered. Encourage nutrition. Start Promod. No NSAIDs. AM labs. Daily weight.
[2020-02-29] MEDS: ramipriL 5 MG CAP PO SCH (21:06)
[2020-02-29] MEDS: MELATONIN 5 MG TABLET PO PRN (23:29)
[2020-03-01] MEDS: HYDROCODONE/APAP 5/325 MG TAB PO PRN ×2 (01:04→17:10)
[2020-03-01] MEDS: PANTOPRAZOLE 40MG TABLET PO SCH (05:10)
[2020-03-01] MEDS: carvediloL 25 MG TAB PO SCH ×2 (05:11→17:10)
[2020-03-01 05:57] LABS: Absolute Lymphocytes (CBC) 0.8 K/uL (0.7-4.9); Basophils % 0.8 % (0-1.3); Hematocrit 27.3 % (36.0-45.0); MPV 8.7 fL (7.6-11.3); RBC Red Blood Cell Count 3.04 M/uL (3.86-4.86)
[2020-03-01 06:09] LABS: Magnesium 2.2 mg/dL (1.8-2.4); Potassium 4.3 mmol/L (3.5-5.1)
[2020-03-01] MEDS: INSULIN -REGULAR HUMAN 50 UNIT/0.5 ML ML SQ SCH ×4 (07:30→21:00)
[2020-03-01] MEDS: AMANTADINE HCL 50 MG PO SCH (09:00)
[2020-03-01] MEDS: PROMOD 30 ML DOSE PO SCH ×2 (09:12→22:16)
[2020-03-01] MEDS: CALCITROL 0.25 MCG CAP PO SCH (09:12)
[2020-03-01] MEDS: AMLODIPINE 10 MG TAB PO SCH (09:13)
[2020-03-01] MEDS: VITAMIN D 5,000 UNIT CAP PO SCH (09:13)
[2020-03-01] MEDS: MULTIVITAMINS,THERAPEUT 1 TAB PO SCH (09:13)
[2020-03-01] MEDS: SERTRALINE HCL 50 MG TAB PO SCH (09:14)
[2020-03-01] MEDS: MEDIHONEY 44 ML TOPICAL TUBE TOP SCH (09:20)
[2020-03-01] MEDS: GLUCERNA SHAKE 237 ML CAN PO SCH ×2 (09:21→22:15)
[2020-03-01] MEDS: CEFTRIAXONE/SWI 1gm 1 GM/10 ML SYR IVP SCH (10:39)
--- NOTE | 2020-03-01 12:43 | P.PN ---
Subjective Date of Service: 03/01/20 Primary Care Provider: Dr. Correa Chief Complaint: Right foot gangrene Subjective: Improving (Reports feeling better today, pain is controlled, denies shortness of breath, chest pain) Review of Systems 10-point ROS is otherwise unremarkable Physical Examination - Vital Signs Temperature: 97.3 F Blood Pressure: 154/70 Pulse: 61 Respirations: 15 Pulse Ox (%): 96 - Physical Exam General: Alert, In no apparent distress, Cachectic HEENT: Sclerae nonicteric Neck: Supple, No LAD Respiratory: Clear to auscultation bilaterally, Normal air movement Cardiovascular: Regular rate/rhythm, Normal S1 S2 Gastrointestinal: Soft and benign, Non-distended, No tenderness Musculoskeletal: Other (Right BKA, wrapped in Trever bandage, TIP drain with serosanguineous output) Integumentary: Pressure ulcer (On left heel and Sacral stage III pressure ulcer: 2.6 x 3.1 x 0.3 cm ) Assessment & Plan Physician Review Additional Text: Dry gangrene right 1st toe, s/p R BKA (02/27/20) Multiple decubitus ulcers including left foot, right foot, sacral Status post PEG tube insertion History of CVA with contracture of the right lower extremity End-stage renal disease on chronic hemodialysis Diabetes mellitus type 2 Hypokalemia Dry gangrene right forefoot , s/p R BKA (02/27/20) -s/p BKA (02/26) -general surgery following, pain control, IV Abx -TIP drain with serosanguineous output -diet as tolerated -will discuss plan of care moving forward with patient and family -prior to surgery under interested in/wanting a 15/01 pet caretaker, unclear if it is they want to go back with home hospice Anemia of chronic disease -chronically low, transfused 1uPRBC on morning of 02/26 with dialysis and the 2nd unit on 02/28 -stable Multiple decubitus ulcers including left foot, right foot, sacral -Wound care consulted -surgery stated may need L foot debridement or more extensive surgery -pt told me on 02/27 she refuses any more amputations at this time. Status post PEG tube insertion -Son states patient does take food and fluids, was requesting that PEG tube was removed. HTN -restarted home meds post-operatively / after speech eval History of CVA with contracture of the right lower extremity: Stable at this time End-stage renal disease on chronic hemodialysis: Nephrology consulted Diabetes mellitus type 2: Daniella Gamezu-Cara, sliding scale insulin therapy. Hypokalemia: Electrolyte protocol in place. Dispo: s/p BKA, may need debridement of L foot/heel, anticipate dc in ~1-2 days Will discuss plan of care/goals of care with family Time Spent Managing Pts Care (In Minutes): 35
[2020-03-01] MEDS: MORPHINE 2 MG/ML SYR IV PRN (14:49)
[2020-03-01] MEDS: EPOETIN ALFA-EPBX 4,000 UNIT/ML VIAL SQ SCH (17:00)
[2020-03-01] MEDS: BACLOFEN 10 MG TAB PO SCH (17:10)
--- NOTE | 2020-03-01 19:14 | RAD REPORT ---
EXAM DESCRIPTION: RAD - Foot Left 2 View - 03/01/2020 6:55 pm CLINICAL HISTORY: Left Foot pain /ulcer FINDINGS: No fracture or dislocation is seen. Osteoporosis Small lucency involves the plantar aspect of the calcaneus. This may represent focal osteoporosis or osteomyelitis. Further evaluation with MRI would be helpful if clinically indicated
[2020-03-01] MEDS: ramipriL 5 MG CAP PO SCH (22:15)
[2020-03-01] MEDS: JUVEN PACKET PO SCH (22:16)
[2020-03-02 04:13] LABS: Absolute Lymphocytes (CBC) 0.8 K/uL (0.7-4.9); Basophils % 0.7 % (0-1.3); Hematocrit 28.2 % (36.0-45.0); Lymphocytes % 9.1 % (15.3-44.8); MPV 8.8 fL (7.6-11.3); RBC Red Blood Cell Count 3.12 M/uL (3.86-4.86)
[2020-03-02 04:27] LABS: Potassium 4.5 mmol/L (3.5-5.1)
[2020-03-02] MEDS: carvediloL 25 MG TAB PO SCH ×2 (06:00→18:09)
[2020-03-02] MEDS: PANTOPRAZOLE 40MG TABLET PO SCH (06:10)
[2020-03-02] MEDS: INSULIN -REGULAR HUMAN 50 UNIT/0.5 ML ML SQ SCH ×4 (07:30→21:00)
[2020-03-02] MEDS: GLUCERNA SHAKE 237 ML CAN PO SCH ×3 (09:00→21:34)
[2020-03-02] MEDS: PROMOD 30 ML DOSE PO SCH ×3 (09:00→21:35)
[2020-03-02] MEDS: VITAMIN D 5,000 UNIT CAP PO SCH ×2 (09:00→09:46)
[2020-03-02] MEDS: MULTIVITAMINS,THERAPEUT 1 TAB PO SCH ×2 (09:00→09:46)
[2020-03-02] MEDS: AMLODIPINE 10 MG TAB PO SCH (09:00)
[2020-03-02] MEDS: MEDIHONEY 44 ML TOPICAL TUBE TOP SCH (09:00)
[2020-03-02] MEDS: CALCITROL 0.25 MCG CAP PO SCH ×2 (09:00→09:46)
[2020-03-02] MEDS: AMANTADINE HCL 50 MG PO SCH (09:00)
[2020-03-02] MEDS: SERTRALINE HCL 50 MG TAB PO SCH ×2 (09:00→09:46)
[2020-03-02] MEDS: JUVEN PACKET PO SCH ×3 (09:00→21:34)
[2020-03-02] MEDS: CEFTRIAXONE/SWI 1gm 1 GM/10 ML SYR IVP SCH (09:46)
--- NOTE | 2020-03-02 11:41 | PN ---
Date of Progress Note: 03/02/2020 Subjective: Status post amputation, patient is doing well. No other complaints. Amputation site is intact. Flaps are 100%. TIP was removed today. Minimal drainage. No cellulitis and no gangrene. Jones were left intact. Dressing was changed. Plan: Continue service by the primary doctor. Follow up in my office in 1 week after discharge. CORY/OLEG Voice ID: [id number] Report ID: [id number]
--- NOTE | 2020-03-02 12:14 | P.PN ---
Subjective Date of Service: 03/02/20 Primary Care Provider: Dr. Correa Chief Complaint: Right foot gangrene Patient only moaning, awake, not communicating. No fever. Physical Examination - Vital Signs Temperature: 98.3 F Blood Pressure: 146/66 Pulse: 62 Respirations: 16 Pulse Ox (%): 99 - Physical Exam General: Other (Awake) HEENT: Mucous membr. moist/pink Neck: Supple Respiratory: Clear to auscultation bilaterally, Normal air movement Cardiovascular: No edema, Regular rate/rhythm, Normal S1 S2 Gastrointestinal: Normal bowel sounds, Soft and benign, No tenderness Musculoskeletal: Other (Right BKA) Neurological: Other (Moves all extremities.) - Studies Microbiology Data (last 24 hrs): 02/25/20 18:02 Blood - Blood Aerobic Blood Culture - Final No growth in 5 days. 02/25/20 18:02 Blood - Blood Anaerobic Blood Culture - Final No growth in 5 days. 02/25/20 16:55 Blood - Blood Aerobic Blood Culture - Final No growth in 5 days. 02/25/20 16:55 Blood - Blood Anaerobic Blood Culture - Final No growth in 5 days. Assessment And Plan Physician Review Additional Text: Dry gangrene right 1st toe, s/p R BKA (02/27/20) Multiple decubitus ulcers including left foot, right foot, sacral Status post PEG tube insertion History of CVA with contracture of the right lower extremity End-stage renal disease on chronic hemodialysis Diabetes mellitus type 2 Hypokalemia Dry gangrene right forefoot , s/p R BKA (02/27/20) -s/p BKA (02/26) -general surgery following. Surgery signed off today. -pain control -1 IV antibiotics. -patient is not eating. -recommend hospice Anemia of chronic disease -chronically low, transfused 1uPRBC on morning of 02/26 with dialysis and the 2nd unit on 02/28 -hemoglobin has been stable stable Multiple decubitus ulcers including left foot, right foot, sacral -Wound care managing. -pt told me on 02/27 she refuses any more amputations at this time. Status post PEG tube insertion -Son states patient does take food and fluids, was requesting that PEG tube was removed. -patient is currently not eating well. -may need PEG tube for hydration. -speech and swallow eval today HTN -on home antihypertensives. History of CVA with contracture of the right lower extremity: Stable at this time End-stage renal disease on chronic hemodialysis: The patient is scheduled for di alysis today Diabetes mellitus type 2: Daniella Ogden-Cara, sliding scale insulin therapy.
[2020-03-02] MEDS: EPOETIN ALFA-EPBX 4,000 UNIT/ML VIAL SQ SCH (13:14)
[2020-03-02] MEDS: MORPHINE 2 MG/ML SYR IV PRN (18:04)
[2020-03-02] MEDS: VANCOMYCIN 500 MG in NA CHLORIDE 0.9% 100 ML IVPB SCH (18:09)
[2020-03-02] MEDS: ramipriL 5 MG CAP PO SCH (21:35)
[2020-03-03] MEDS: MORPHINE 2 MG/ML SYR IV PRN ×2 (00:44→09:12)
[2020-03-03] MEDS: PANTOPRAZOLE 40MG TABLET PO SCH (05:57)
[2020-03-03] MEDS: carvediloL 25 MG TAB PO SCH ×2 (05:57→17:14)
[2020-03-03] MEDS: INSULIN -REGULAR HUMAN 50 UNIT/0.5 ML ML SQ SCH ×3 (07:30→16:30)
[2020-03-03] MEDS: CEFTRIAXONE/SWI 1gm 1 GM/10 ML SYR IVP SCH (08:40)
[2020-03-03] MEDS: CALCITROL 0.25 MCG CAP PO SCH (08:40)
[2020-03-03] MEDS: GLUCERNA SHAKE 237 ML CAN PO SCH (08:41)
[2020-03-03] MEDS: AMLODIPINE 10 MG TAB PO SCH (08:41)
[2020-03-03] MEDS: JUVEN PACKET PO SCH (08:41)
[2020-03-03] MEDS: MULTIVITAMINS,THERAPEUT 1 TAB PO SCH (08:41)
[2020-03-03] MEDS: VITAMIN D 5,000 UNIT CAP PO SCH (08:41)
[2020-03-03] MEDS: SERTRALINE HCL 50 MG TAB PO SCH (08:41)
[2020-03-03] MEDS: AMANTADINE HCL 50 MG PO SCH (08:42)
[2020-03-03] MEDS: PROMOD 30 ML DOSE PO SCH (08:42)
--- NOTE | 2020-03-03 11:23 | P.DS ---
Admission Date: 02/25/20 Discharge Date: 03/03/20 Primary Care Provider: Dr. Correa Disposition: TRANSFR TO OTHER-PSY/CD/REHAB Discharge Condition: FAIR Reason for Admission: Right foot gangrene - Problems (1) Gangrene of toe of right foot Current Visit: Yes Status: Acute (2) Decubitus ulcer, heel, right, unstageable Current Visit: Yes Status: Acute (3) ESRD (end stage renal disease) on dialysis Current Visit: Yes Status: Acute Brief History of Present Illness: 69-year-old lady with a diagnosis of end-stage renal disease on hemodialysis, history of CVA with contraction of the right lower extremity was brought to the emergency department due to nonhealing wound in the right foot. Patient was exam in the ED noted to have gangrene of the toes of the right foot. She had previously been on hospice which was revoked by his son in her to bring her to the ED. Patient was subsequently admitted for further management. Hospital Course: She was hospitalized and started on IV antibiotics. She was evaluated by general surgery Dr. Sibley who recommended urgent amputation of the right foot. Below-knee amputation was done, patient was monitored after surgery on the medical floor. Plan of care was discussed with the son who wanted disposition to home with health. Hsr son also stated he will also be arranging for personal aid at home. Patient was hemodialyzed during her stay. She will continue dialysis with Dr. Le on discharge. She has no leukocytosis or fever. The amputation stump looks clean. Antibiotics discontinued. Patient will be discharged with home health for her son's preference. Vital Signs/Physical Exam: Temp Pulse Resp BP Pulse Ox 97.5 F 61 18 164/70 H 100 03/03/20 08:00 03/03/20 08:41 03/03/20 09:12 03/03/20 08:41 03/03/20 09:12 General: In no apparent distress, Other (Awake,) HEENT: Mucous membr. moist/pink Neck: Supple Respiratory: Clear to auscultation bilaterally, Normal air movement Cardiovascular: No edema, Regular rate/rhythm, Normal S1 S2 Gastrointestinal: Normal bowel sounds, Soft and benign, Non-distended Musculoskeletal: Other (Right BKA.) Integumentary: Pressure ulcer (Left heel, dry unstageable) Neurological: Other (Non-focal.) Laboratory Data at Discharge: WBC 8.5 K/uL (4.3-10.9) 03/02/20 03:43 Hgb 9.1 g/dL (12.0-15.0) L 03/02/20 03:43 Hct 28.2 % (36.0-45.0) L 03/02/20 03:43 Plt Count 315 K/uL (152-406) 03/02/20 03:43 PT 13.5 SECONDS (9.5-12.5) H 02/25/20 16:55 INR 1.15 02/25/20 16:55 APTT 27.1 SECONDS (24.3-36.9) 02/25/20 16:55 Sodium 138 mmol/L (136-145) 03/02/20 03:43 Potassium 4.5 mmol/L (3.5-5.1) 03/02/20 03:43 BUN 29 mg/dL (7-18) H 03/02/20 03:43 Creatinine 3.57 mg/dL (0.55-1.3) H 03/02/20 03:43 Glucose 88 mg/dL (74-106) 03/02/20 03:43 Phosphorus 4.0 mg/dL (2.5-4.9) D 03/01/20 05:21 Magnesium 2.2 mg/dL (1.8-2.4) 03/01/20 05:21 Total Bilirubin 0.4 mg/dL (0.2-1.0) 02/25/20 16:55 AST 11 U/L (15-37) L 02/25/20 16:55 ALT < 6 U/L (12-78) L 02/25/20 16:55 Alkaline Phosphatase 79 U/L (45-117) 02/25/20 16:55 Troponin I 0.12 ng/mL (0.0-0.045) H 02/26/20 03:43 Amylase 35 U/L (25-115) 02/25/20 16:55 Lipase 266 U/L (73-393) 02/25/20 16:55 Home Medications: Amantadine HCl [Amantadine] 50 mg PO DAILY 02/26/20 Amlodipine [Norvasc*] 10 mg PO DAILY 02/26/20 Baclofen 5 mg PO M,W,F 02/26/20 Carvedilol [Coreg] 25 mg PO Q12H 02/26/20 Clopidogrel Bisulfate [Plavix*] 75 mg PO DAILY 02/26/20 Linagliptin [Tradjenta] 5 mg PO DAILY 02/26/20 Omeprazole 20 mg PO BID 02/26/20 Sertraline [Zoloft*] 25 mg PO DAILY 02/26/20 Calcitrol [Rocaltrol*] 0.5 mcg PO DAILY #30 cap 03/03/20 Cholecalciferol (Vitamin D3) [Vitamin D 5,000 IU Cap*] 5,000 unit PO DAILY #30 cap 03/03/20 Epoetin Gerard-Epbx [Retacrit] 4,000 unit SQ M,W,F vial 03/03/20 Glucerna Shake [Glucerna*] 237 ml PO BID #60 can 03/03/20 Javier [Javier*] 1 pkt PO BID #60 powd.pack 03/03/20 Mannitol 25% [Mannitol*] 12.5 gm IV EVERY HD PRN vial 03/03/20 Medihoney [[facility]oney Woundcare Gel*] 1 appl TOP DAILY #2 tube 03/03/20 Melatonin 5 mg PO BEDTIME PRN PRN #30 tablet 03/03/20 Tramadol HCl [Ultram] 50 mg PO Q6HR PRN #30 tablet 03/03/20 ramipriL [Altace*] 10 mg PO BEDTIME #30 cap 03/03/20 New Medications: Tramadol HCl [Ultram] 50 mg PO Q6HR PRN #30 tablet PRN Reason: PAin ramipriL [Altace*] 10 mg PO BEDTIME #30 cap Glucerna Shake [Glucerna*] 237 ml PO BID #60 can Javier [Javier*] 1 pkt PO BID #60 powd.pack Medihoney [Medihoney Woundcare Gel*] 1 appl TOP DAILY #2 tube Melatonin 5 mg PO BEDTIME PRN PRN #30 tablet PRN Reason: Sedation Calcitrol [Rocaltrol*] 0.5 mcg PO DAILY #30 cap Cholecalciferol (Vitamin D3) [Vitamin D 5,000 IU Cap*] 5,000 unit PO DAILY #30 cap Diet: Renal (Soft diet) Activity: Fall precautions Followup: Frank Sibley MD [ACTIVE - CAN ADMIT] - 1-2 Weeks (within) Don Le DO [ACTIVE - CAN ADMIT] - 1-2 Weeks Time spent managing pt's care (in minutes): 45
[2020-03-03] MEDS: HYDROCODONE/APAP 5/325 MG TAB PO PRN ×2 (13:34→20:15)
[2020-03-03] MEDS: MEDIHONEY 44 ML TOPICAL TUBE TOP SCH (13:36)
[2020-03-03 15:31] LABS: HBsAG Nonreactive (Nonreactive)
--- NOTE | 2020-03-03 16:24 | P.PN ---
Subjective Date of Service: 03/03/20 Primary Care Provider: Dr. Correa Chief Complaint: Right foot gangrene Subjective: No new changes (pt crying ,confused) Review of Systems is unable to be obtained Physical Examination - Vital Signs Temperature: 97.6 F Blood Pressure: 145/62 Pulse: 62 Respirations: 16 Pulse Ox (%): 100 - Physical Exam General: Alert HEENT: Atraumatic Respiratory: Clear to auscultation bilaterally Cardiovascular: No edema Gastrointestinal: Normal bowel sounds Other Physical/Emotional Findings: R BKA noted Assessment And Plan Physician Review Additional Text: Dry gangrene right 1st toe, s/p R BKA (02/27/20) Multiple decubitus ulcers including left foot, right foot, sacral Status post PEG tube insertion History of CVA with contracture of the right lower extremity End-stage renal disease on chronic hemodialysis Diabetes mellitus type 2 Hypokalemia Dry gangrene right forefoot , s/p R BKA (02/27/20) -s/p BKA (02/26) continue wound care Anemia of chronic disease -chronically low, transfused 1uPRBC on morning of 02/26 with dialysis and the 2nd unit on 02/28 -hemoglobin has been stable stable resume JERRY as out pt Multiple decubitus ulcers including left foot, right foot, sacral Status post PEG tube insertion HTN -on home antihypertensives. History of CVA with contracture of the right lower extremity: Stable at this time End-stage renal disease on chronic hemodialysis: The patient is scheduled for dialysis on TTS Diabetes mellitus type 2: A.c. HS Accu-Cheks, sliding scale insulin therapy. Ok to be discharged with follow up as out pt for dialysis
[2020-03-03] MEDS: BACLOFEN 10 MG TAB PO SCH (17:14)
[2020-03-03] MEDS: EPOETIN ALFA-EPBX 4,000 UNIT/ML VIAL SQ SCH (19:39)
[2020-03-03] MEDS: ramipriL 5 MG CAP PO SCH (20:13)
[2020-03-03 20:15] VITALS: BP 142/61
[2020-03-03 20:48] VITALS: TEMP 97.4; O2SAT 93
--- NOTE | 2020-03-04 20:58 | P.PN ---
Date of Service: 03/02/20 Vital Signs Temp Pulse Resp BP Pulse Ox 97.4 F 60 18 142/61 H 93 03/03/20 20:00 03/03/20 20:13 03/03/20 20:15 03/03/20 20:13 03/03/20 20:15 Microbiology Results 02/25/20 18:02 Blood - Blood Aerobic Blood Culture - Final No growth in 5 days. 02/25/20 18:02 Blood - Blood Anaerobic Blood Culture - Final No growth in 5 days. 02/25/20 16:55 Blood - Blood Aerobic Blood Culture - Final No growth in 5 days. 02/25/20 16:55 Blood - Blood Anaerobic Blood Culture - Final No growth in 5 days. 02/25/20 18:02 Clean Catch Urine [place] Count - Final >100,000 CFU/ML. 02/25/20 18:02 Clean Catch Urine - Final Assessment/ Plan: Nephrology CPS stable without CP or SOB. No acute events overnight. Limited IH/ ROS due to confusion. Vitals, medications, blood work and imaging reviewed in the chart. General: In no apparent distress, Cooperative HEENT: Atraumatic Neck: Supple Respiratory: Clear to auscultation bilaterally Cardiovascular: No edema, Regular rate/rhythm Gastrointestinal: Soft and benign, Non-distended Musculoskeletal: No clubbing, No contractures Integumentary: No rashes, No cyanosis Neurological: Abnormal speech Blood work reviewed in the chart. Imagings Data: EXAM DESCRIPTION: Gauri Single View02/25/2020 7:55 pm CLINICAL HISTORY: Chest pain COMPARISON: February 25, 2020 FINDINGS: The lungs appear clear of acute infiltrate. The heart is normal size. A central venous catheter remains place IMPRESSION: No acute abnormalities displayed Conclusions/Impression: A/ ESRD on HD Hypokalemia Hypocalcemia Hypomagnesemia HTN with CKD/ CHF Diastolic CHF, chronic DM II with CKD Moderate malnutrition Anemia in CKD TAO/ Secondary HyperPTH Gangrene right first toe. P/ Continue current POC and Medications. HD TIW. Retacrit TIW. Wound care as ordered. Encourage nutrition. No NSAIDs. AM labs. Daily weight.
== END 2020-03-03 20:39 | disposition home health service (06) | DRG 239 ==
LOC: ER 15:50 → ERHOLD 18:47 → 2ND 19:46
PROVIDERS: ADMIT Hospitalist; ATTEND Internal Medicine
PROC: 30233N1 Transfusion of Nonautologous Red Blood Cells into Peripheral Vein, Percutaneous Approach (ICD-10-PCS; 2020-02-27)
PROC: 5A1D70Z Performance of Urinary Filtration, Intermittent, Less than 6 Hours Per Day (ICD-10-PCS; 2020-02-27)
PROC: 0Y9F00Z Drainage of Right Knee Region with Drainage Device, Open Approach (ICD-10-PCS; 2020-02-27)
PROC: 0Y6H0Z2 Detachment at Right Lower Leg, Mid, Open Approach (ICD-10-PCS; principal; 2020-02-27 15:00)
DX: E11.52 Type 2 diabetes mellitus with diabetic peripheral angiopathy with gangrene (principal); N18.6 End stage renal disease; I96 Gangrene, not elsewhere classified; N39.0 Urinary tract infection, site not specified; I13.2 Hypertensive heart and chronic kidney disease with heart failure and with stage 5 chronic kidney disease, or end stage renal disease; I50.32 Chronic diastolic (congestive) heart failure; E44.0 Moderate protein-calorie malnutrition; E11.22 Type 2 diabetes mellitus with diabetic chronic kidney disease; Z99.2 Dependence on renal dialysis; E78.5 Hyperlipidemia, unspecified; K21.9 Gastro-esophageal reflux disease without esophagitis; Z88.8 Allergy status to other drugs, medicaments and biological substances; Z79.02 Long term (current) use of antithrombotics/antiplatelets; Z79.899 Other long term (current) drug therapy; F03.90 Unspecified dementia, unspecified severity, without behavioral disturbance, psychotic disturbance, mood disturbance, and anxiety; E11.621 Type 2 diabetes mellitus with foot ulcer; L97.529 Non-pressure chronic ulcer of other part of left foot with unspecified severity; L97.519 Non-pressure chronic ulcer of other part of right foot with unspecified severity; L89.159 Pressure ulcer of sacral region, unspecified stage; E87.6 Hypokalemia; I69.398 Other sequelae of cerebral infarction; I25.2 Old myocardial infarction; Z68.22 Body mass index [BMI] 22.0-22.9, adult; D63.1 Anemia in chronic kidney disease; E21.1 Secondary hyperparathyroidism, not elsewhere classified; N25.0 Renal osteodystrophy; D63.8 Anemia in other chronic diseases classified elsewhere; I25.10 Atherosclerotic heart disease of native coronary artery without angina pectoris; Z93.1 Gastrostomy status; L89.610 Pressure ulcer of right heel, unstageable
CPT/HCPCS: 36415; 36430; 70450; 71045; 80048; 80076; 80202; 81003; 81015; 82150; 82550; 82553; 82947; 83605; 83690; 83735; 84100; 84132; 84145; 84484; 85014; 85018; 85025; 85610; 85730; 86317; 86704; 86706; 86803; 86850; 86900; 86901; 87040; 87086; 87088; 87340; 88307; 90935; 92610; 93005; 96361; 96374; 96375; 99285; J0171; J0696; J1100; J1644; J2001; J2250; J2270; J2405; J2704; J3010; J3370; J3475; J3480; J7030; J7040; J7050; P9016; Q5106

== ENCOUNTER 2020-03-07 23:11 | Emergency (ER) | payer OTHER ==
--- OUTSIDE RECORDS SUMMARY | 2020-03-07 23:14 | XMS REPORT | Clinical Summary ---
:1950 Author Organization [facility] Address [address] [place] [address] Care Team Providers Name Role Phone Sharpless [...] Not on file Results Not on fileafter 03/07/2019 Insurance Payer Benefit Plan / Group Subscriber ID Type Phone A ddress [employer] xxxxxxxx Maps Contracted Advance Directives For more information, please contact:[address] [phone] Code Status Date Activated Date Inactivated Comments Full Code 02/27/2017 7:43 PM 03/09/2017 10:36 PM This code status was determined by: Patient
--- OUTSIDE RECORDS SUMMARY | 2020-03-07 23:14 | XMS REPORT | Continuity of Care Document ---
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 Family History Family Member Diagnosis Comments Start Date Stop Date Source Natural brother Heart disease [facility] Natural father Diabetes [facility] Maternal grandfather Cancer [facility] Maternal grandmother Heart disease C [facility] Natural mother Cancer [facility] Natural sister Diabetes [facility] Social History Social Habit Start Date Stop Date Quantity Comments Source Sex Assigned At [facility] Smoking Status Start Date Stop Date Source Never smoker [facility] Medications Ordered Filled Start Stop Current Ordering Indication Dosage Frequency Signature Comments Components Source Medication Medication Date Date Medication? Clinician (SIG) Name Name insulin Yes 50U Q.5D Inject 50 [facility] - (LEVEMIR) 00:00: subcutaneo Me dical 100 unit/mL 00 [facility] injection (two) times daily. SITagliptin 2017-0 Yes 100mg QD Take [address] (JANUVIA) 9-05 mg by [facility] - 100 MG 21:20: mouth Medical tablet 30 daily. [place] amLODIPine 20170 Yes 10mg QD Take [address] (NORVASC) 9-05 by mouth [facility] - 10 MG 21:20: daily. Medical tablet 30 [place] esomeprazol 2017-0 Yes 40mg QD Take [address] [facility] (NEXIUM) 9-05 by mouth [facility] - 40 MG 21:20: daily. Medical capsule 30 [place] aspirin 81 20170 Yes 81mg QD Take [address] MG EC 9-05 by mouth [facility] - tablet 21:20: daily. Medical 30 [place] clopidogrel 2017 Yes 75mg QD Take [address] (PLAVIX) 75 -05 by mouth [facility] - mg tablet 21:20: daily. Medica l 30 [place] lisinopril Yes 40mg QD Take [address] (PRINIVIL,Z 02-27 by mouth [facility] - ESTRIL) 40 21:20: daily. Medic al MG tablet 30 Center Procedures Procedure Date / Time Performed Performing Clinician Sourc e [id number] 2020-01-05 00:00:00 ENCPL 0A8C79C 2020-01-05 00:00:00 ENCPL 4G8H91Q 2020-01-05 00:00:00 ENCPL 0N4K86S 2020-01-05 00:00:00 ENCPL 3Q6D49B 2020-01-05 00:00:00 ENCPL 6B0K23K 2020-01-05 00:00:00 ENCPL 3X1M51R 2020-01-05 00:00:00 ENCPL 6J7M11P 2020-01-05 00:00:00 ENCPL 2U3H63U 2020-01-05 00:00:00 ENCPL 9M0J20H 2020-01-05 00:00:00 ENCPL 1X5Y39Z 2020-01-05 00:00:00 ENCPL 1Y8P15X 2020-01-05 00:00:00 ENCPL 0I2N10N 2020-01-05 00:00:00 ENCPL 5H5D08M 2020-01-05 00:00:00 ENCPL 7M7Y55E 2020-01-05 00:00:00 ENCPL 8H0Y74Z 2020-01-05 00:00:00 ENCPL 8C5S47O 2020-01-05 00:00:00 ENCPL 2N9H57T 2020-01-05 00:00:00 ENCPL 4S4L14X 2020-01-05 00:00:00 ENCPL 2T4H97P 2020-01-05 00:00:00 ENCPL 0H4E00F 2020-01-05 00:00:00 ENCPL 4G7S30F 2020-01-05 00:00:00 ENCPL 6A4W85E 2020-01-05 00:00:00 ENCPL 9U8G31R 2020-01-05 00:00:00 ENCPL 1F9R81G 2020-01-05 00:00:00 ENCPL 3K9O74Z 2020-01-05 00:00:00 ENCPL 0K3M39M 2020-01-05 00:00:00 ENCPL 9S2I32P 2020-01-05 00:00:00 ENCPL 4A2V23P 2020-01-05 00:00:00 ENCPL Encounters Start End Encounter Admission Attending Care Care Encounter Source Date/Time Date/Time Type Type Clinicians Facility Department ID 2020-01-16 Outpatient NEW ENCGEN ENCGEN [id number] EN CGEN 13:22:45 ADMISSION Results Test Description Test Time Test Comments Results Result Comments Source POCT-GLUCOSE METER 2017-03-09 16:49:00 Test Item Value Reference Range Interpretation Comme nts POC-GLUCOSE METER ([facility]) (test 150 mg/dL 70-110 [address]) [facility] 7703 0 POCT-GLUCOSE [id number] 11:40:00 Test Item Value Reference Range Interpretation Comments POC-GLUCOSE METER 125 mg/dL 70-110 H TESTED AT [place] [address] ([facility]) (test code = DAVID Parada [facility] 1538) [id number] POCT-GLUCOSE [id number] 07:36:00 Test Item Value Reference Range Interpretation Comments POC-GLUCOSE METER 102 mg/dL 70-110 TESTED AT [place] [address] ([facility]) (test code = DAVID Parada [facility] 1538) [id number] POCT-GLUCOSE [id number] 21:09:00 Test Item Value Reference Range Interpretation Comments POC-GLUCOSE METER 165 mg/dL 70-110 H TESTED AT [place] [address] ([facility]) (test code = DAVID Parada [place] 1538) [id number] POCT-GLUCOSE [id number] 16:49:00 Test Item Value Reference Range Interpretation Comments POC-GLUCOSE METER 124 mg/dL 70-110 H TESTED AT [place] [address] ([facility]) (test code = DAVID Parada [place] 1538) [id number] POCT-GLUCOSE [id number] 11:38:00 Test Item Value Reference Range Interpretation Comments POC-GLUCOSE METER 169 mg/dL 70-110 H TESTED AT [place] [address] ([facility]) (test code = DAVID Parada [place] 1538) [id number] POCT-GLUCOSE [id number] 07:40:00 Test Item Value Reference Range Interpretation Comments POC-GLUCOSE METER 191 mg/dL 70-110 H TESTED AT [place] [address] ([facility]) (test code = DAVID Parada [place] 1538) [id number] POCT-GLUCOSE [id number] 21:26:00 Test Item Value Reference Range Interpretation Comments POC-GLUCOSE METER 173 mg/dL 70-110 H TESTED AT [place] [address] ([facility]) (test code = DAVID Parada [place] 1538) [id number] POCT-GLUCOSE [id number] 17:45:00 Test Item Value Reference Range Interpretation Comments POC-GLUCOSE METER 155 mg/dL 70-110 H TESTED AT [place] [address] ([facility]) (test code = DAVID Parada [place] 1538) [id number] POCT-GLUCOSE [id number] 12:58:00 Test Item Value Reference Range Interpretation Comments POC-GLUCOSE METER 181 mg/dL 70-110 H TESTED AT [place] [address] ([facility]) (test code = DAVID Parada [place] 1538) [id number] POCT-GLUCOSE [id number] 12:32:00 Test Item Value Reference Range Interpretation Comments POC-GLUCOSE METER 177 mg/dL 70-110 H TESTED AT [place] [address] ([facility]) (test code = DAVID Parada [place] 1538) [id number] POCT-GLUCOSE [id number] 08:25:00 Test Item Value Reference Range Interpretation Comments POC-GLUCOSE METER 125 mg/dL 70-110 H TESTED AT [place] [address] ([facility]) (test code = DAVID Parada [place] 1538) [id number] POCT-GLUCOSE [id number] 20:55:00 Test Item Value Reference Range Interpretation Comments POC-GLUCOSE METER 131 mg/dL 70-110 H TESTED AT [place] [address] ([facility]) (test code = ASHLEYTUCKER Karma [place] 1538) [address] POCT-GLUCOSE [id number] 20:42:00 Test Item Value Reference Range Interpretation Comments POC-GLUCOSE METER 121 mg/dL 70-110 H TESTED AT [place] [address] ([facility]) (test code = ASHLEYTUCKER [place] 1538) 18170 POCT-GLUCOSE [id number] 17:10:00 Test Item Value Reference Range Interpretation Comments POC-GLUCOSE METER 116 mg/dL 70-110 H TESTED AT [place] [address] ([facility]) (test code = ASHLEYTUCKER Karma [place] 1538) [id number] POCT-GLUCOSE [id number] 11:45:00 Test Item Value Reference Range Interpretation Comments POC-GLUCOSE METER 153 mg/dL 70-110 H TESTED AT [place] [address] ([facility]) (test code = ASHLEYTUCKER [place] 1538) [id number] POCT-GLUCOSE [id number] 08:42:00 Test Item Value Reference Range Interpretation Comments POC-GLUCOSE METER 117 mg/dL 70-110 H TESTED AT [place] [address] ([facility]) (test code = ASHLEYTUCKER [place] 1538) [id number] POCT-GLUCOSE [id number] 21:05:00 Test Item Value Reference Range Interpretation Comments POC-GLUCOSE METER 195 mg/dL 70-110 H TESTED AT [place] [address] ([facility]) (test code = ASHLEYTUCKER Parada [place] 1538) [id number] POCT-GLUCOSE [id number] 17:04:00 Test Item Value Reference Range Interpretation Comments POC-GLUCOSE METER 143 mg/dL 70-110 H TESTED AT [place] [address] ([facility]) (test code = ASHLEYTUCKER Parada [place] 1538) [id number] POCT-GLUCOSE [id number] 13:32:00 Test Item Value Reference Range Interpretation Comments POC-GLUCOSE METER 190 mg/dL 70-110 H TESTED AT [place] [address] ([facility]) (test code = DAVID [place] 1538) [id number] POCT-GLUCOSE [id number] 12:46:00 Test Item Value Reference Range Interpretation Comments POC-GLUCOSE METER 175 mg/dL 70-110 H TESTED AT [place] [address] ([facility]) (test code = DAVID Parada [facility] 1538) 58060 POCT-GLUCOSE [id number] 09:35:00 Test Item Value Reference Range Interpretation Comments POC-GLUCOSE METER 206 mg/dL 70-110 H TESTED AT [place] [address] ([facility]) (test code = DAVID Parada [facility] 1538) 39486 POCT-GLUCOSE [id number] 08:01:00 Test Item Value Reference Range Interpretation Comments POC-GLUCOSE METER 63 mg/dL 70-110 L Notified R Layton RIVAS/TESTED AT ([facility]) (test code = [address] 1538) [facility] 7703 0 POCT-GLUCOSE [id number] 20:42:00 Test Item Value Reference Range Interpretation Comments POC-GLUCOSE METER 160 mg/dL 70-110 H TESTED AT [place] [address] ([facility]) (test code = DAVID Parada [facility] 1538) 94149 POCT-GLUCOSE [id number] 16:48:00 Test Item Value Reference Range Interpretation Comments POC-GLUCOSE METER 180 mg/dL 70-110 H TESTED AT [place] [address] ([facility]) (test code = DAVID Parada [facility] 1538) 32438 POCT-GLUCOSE [id number] 11:45:00 Test Item Value Reference Range Interpretation Comments POC-GLUCOSE METER 176 mg/dL 70-110 H TESTED AT [place] [address] ([facility]) (test code = DAVID Parada [facility] 1538) [id number] POCT-GLUCOSE [id number] 08:12:00 Test Item Value Reference Range Interpretation Comments POC-GLUCOSE METER 89 mg/dL 70-110 TESTED AT [place] [address] ([facility]) (test code = DAVID Parada [facility] [address] 1538) BASIC METABOLIC [id number] 05:06:00 Test Item Value Reference Range Interpretation [...] NOT APPLICABLE FOR DIALYSIS PATIEN TS. POCT-GLUCOSE [id number] 21:04:00 Test Item Value Reference Range Interpretation Comments POC-GLUCOSE METER 115 mg/dL 70-110 H TESTED AT [facility] 6720 (BEAKER) (test code = DAVID Parada [place] 1538) [address] URINALYSIS W/ [id number] 19:25:00 Test Item Value Reference Range Interpretation [...] 516) SOURCE(BEAKER) (test code = 2795) POCT-GLUCOSE [id number] 17:51:00 Test Item Value Reference Range Interpretation Comments POC-GLUCOSE METER 176 mg/dL 70-110 H TESTED AT [place] [address] ([facility]) (test code = DAVID [place] 1538) [address] POCT-GLUCOSE [id number] 12:29:00 Test Item Value Reference Range Interpretation Comments POC-GLUCOSE METER 142 mg/dL 70-110 H TESTED AT [place] [address] ([facility]) (test code = ADVID Parada [place] 1538) [address]666 POCT-GLUCOSE [id number] 08:01:00 Test Item Value Reference Range Interpretation Comments POC-GLUCOSE METER 103 mg/dL 70-110 TESTED AT [place] [address] ([facility]) (test code = DAVID Parada [place] 1538) [id number] POCT-GLUCOSE [id number] 20:52:00 Test Item Value Reference Range Interpretation Comments POC-GLUCOSE METER 141 mg/dL 70-110 H TESTED AT [place] [address] ([facility]) (test code = DAVID Parada [place] 1538) [address]64 POCT-GLUCOSE [id number] 17:25:00 Test Item Value Reference Range Interpretation Comments POC-GLUCOSE METER 189 mg/dL 70-110 H TESTED AT [place] [address] ([facility]) (test code = DAVID Parada [place] 1538) [address] POCT-GLUCOSE [id number] 12:42:00 Test Item Value Reference Range Interpretation Comments POC-GLUCOSE METER 169 mg/dL 70-110 H TESTED AT [place] [address] ([facility]) (test code = DAVID Parada [place] 1538) [id number] POCT-GLUCOSE [id number] 08:12:00 Test Item Value Reference Range Interpretation Comments POC-GLUCOSE METER 140 mg/dL 70-110 H TESTED AT [place] [address] ([facility]) (test code = DAVID Parada [place] 1538) [address] POCT-GLUCOSE [id number] 20:30:00 Test Item Value Reference Range Interpretation Comments POC-GLUCOSE METER 165 mg/dL 70-110 H TESTED AT [place] [address] ([facility]) (test code = DAVID Parada [place] 1538) 68349 POCT-GLUCOSE [id number] 16:56:00 Test Item Value Reference Range Interpretation Comments POC-GLUCOSE METER 84 mg/dL 70-110 TESTED AT [place] [address] ([facility]) (test code = DAVID Parada [facility] [address] 1538) URINE [id number] 15:41:00 Test Item Value Reference Range Interpretation Comments CULTURE ([facility]) (test 30-39,000 col/mL skin code = 1095) marcie POCT-GLUCOSE [id number] 11:27:00 Test Item Value Reference Range Interpretation Comments POC-GLUCOSE METER 127 mg/dL 70-110 H TESTED AT [place] [address] ([facility]) (test code = DAVID Parada [place] 1538) [address] POCT-GLUCOSE [id number] 08:18:00 Test Item Value Reference Range Interpretation Comments POC-GLUCOSE METER 117 mg/dL 70-110 H TESTED AT [place] [address] ([facility]) (test code = DAVID Parada [place] 1538) [address]69 POCT-GLUCOSE [id number] 20:16:00 Test Item Value Reference Range Interpretation Comments POC-GLUCOSE METER 111 mg/dL 70-110 H TESTED AT [place] [address] ([facility]) (test code = DAVID Parada [place] 1538) [address]77 POCT-GLUCOSE [id number] 17:19:00 Test Item Value Reference Range Interpretation Comments POC-GLUCOSE METER 148 mg/dL 70-110 H TESTED AT [place] [address] ([facility]) (test code = DAVID Parada [place] 1538) [address]29 POCT-GLUCOSE [id number] 13:27:00 Test Item Value Reference Range Interpretation Comments POC-GLUCOSE METER 245 mg/dL 70-110 H TESTED AT [place] [address] ([facility]) (test code = DAVID Parada [place] 1538) 78357 POCT-GLUCOSE [id number] 11:50:00 Test Item Value Reference Range Interpretation Comments POC-GLUCOSE METER 234 mg/dL 70-110 H TESTED AT [place] [address] ([facility]) (test code = DAVID Parada [place] 1538) [address] HEMOGLOBIN [id number] 08:59:00 Test Item Value Reference Range Interpretation Comments HEMOGLOBIN A1C ([facility]) (test code = 11.8 % 4.3-6.1 H 368) POCT-GLUCOSE [id number] 07:40:00 Test Item Value Reference Range Interpretation Comments POC-GLUCOSE METER 181 mg/dL 70-110 H TESTED AT [facility] 6720 (BEAKER) (test code = DAVID [place] 1538) [address] LIPID [id number] 06:05:00 Test Item Value Reference Range Interpretation [...] High 160-189 Very High >=190 FastingBASIC METABOLIC [id number] 06:05:00 Test Item Value Reference Range Interpretation [...] FOR DIALYSIS PATIEN TS. FastingTSH/FREE T4 IF [id number] 06:05:00 Test Item Value Reference Range Interpretation Comments THYROID STIMULATING HORMONE 2.87 uIU/mL 0.35-4.94 (BEAKER) (test code = 772) CBC W/PLT COUNT & AUTO [id number] 05:29:00 Test Item Value Reference Range Interpretation [...] PERCENT (BEAKER) (test code = 2801) POCT-GLUCOSE [id number] 23:44:00 Test Item Value Reference Range Interpretation Comments POC-GLUCOSE METER 169 mg/dL 70-110 H TESTED AT [facility] 6720 (BEAKER) (test code = DAVID Parada [place] 1538) [id number] URINALYSIS W/ [id number] 23:03:00 Test Item Value Reference Range Interpretation [...] code = 514) SOURCE(BEAKER) (test code = 9757)
[2020-03-08 00:04] LABS: Absolute Lymphocytes (CBC) 0.9 K/uL (0.7-4.9); Basophils % 0.9 % (0-1.3); Hematocrit 28.5 % (36.0-45.0); Lymphocytes % 8.3 % (15.3-44.8); MPV 7.9 fL (7.6-11.3); RBC Red Blood Cell Count 3.15 M/uL (3.86-4.86)
[2020-03-08 00:08] LABS: Protime INR 1.14
[2020-03-08] MEDS ORDERED: ONDANSETRON 4 MG/2 ML VIAL ONE (00:15)
[2020-03-08] MEDS ORDERED: NA CHLORIDE 0.9% 250 ML ONE (00:15)
[2020-03-08] MEDS ORDERED: PANTOPRAZOLE 40 MG INJ ONE ×2 (00:15→00:19)
[2020-03-08 00:19] LABS: Albumin 1.5 g/dL (3.4-5.0); Bilirubin Direct 0.2 mg/dL (0-0.2); Bilirubin Total 0.3 mg/dL (0.2-1.0); Potassium 4.4 mmol/L (3.5-5.1); Protein, Total 6.1 g/dL (6.4-8.2)
--- NOTE | 2020-03-08 01:29 | EDPHYS ---
Physician Documentation [facility] Name: Fifi Salamanca Age: 69 yrs Sex: Female : 1950 Arrival Date: 03/07/2020 Time: 23:17 Bed 16 Private MD: ED Physician Diego Chris HPI: 03/07 23:44 This 69 yrs old Female presents to ER via EMS with complaints of Abdominal rn Pain. 23:44 The patient presents with abdominal pain that is diffuse. Onset: The symptoms/episode rn began/occurred today. The symptoms do not radiate. Associated signs and symptoms: Pertinent positives: nausea and vomiting, vomiting blood, Pertinent negatives: fever, shortness of breath. Modifying factors: The symptoms are alleviated by nothing, the symptoms are aggravated by nothing. Severity of pain: At its worst the pain was moderate in the emergency department the pain is unchanged. The patient has not experienced similar symptoms in the past. + black emesis and abd pain that began today, ESRD, no fever. . Historical: - Allergies: 03/08 02:04 Aspirin; - PMHx: 02:04 CVA; Diabetes - IDDM; High Cholesterol; Hypertension; Myocardial infarction; ESRD; wh - PSHx: 02:04 BKA; wh - Immunization history:: Adult Immunizations unknown. - Family history:: not pertinent. - Social history:: Smoking status: Patient/guardian denies using. - Hospitalizations: : No recent hospitalization is reported. ROS: 03/07 23:44 Constitutional: Negative for fever, chills, and weight loss, Neck: Negative for injury, rn pain, and swelling, Cardiovascular: Negative for chest pain, palpitations, and edema, Respiratory: Negative for shortness of breath, cough, wheezing, and pleuritic chest pain, Abdomen/GI: + abd pain/nausea/vomiting MS/Extremity: Negative for injury and deformity, Skin: Negative for injury, rash, and discoloration, Neuro: Negative for headache, numbness, tingling, and seizure. Exam: 23:44 Constitutional: Thin female, no acute distress Head/Face: Normocephalic, atraumatic. broomcorn press feeder: Regular rate and rhythm. No pulse deficits. Respiratory: No increased work of breathing, no retractions or nasal flaring. Abdomen/GI: soft, non-tender Skin: Warm, dry MS/ Extremity: No cyanosis Neuro: Awake and alert, oriented to person, not time or place Vital Signs: 23:30 BP 133 / 60; Pulse 68; Resp 18; Temp 98.2; Pulse Ox 99% ; 03/08 01:00 BP 145 / 59; Pulse 67; Resp 18; Pulse Ox 98% on R/A; 02:00 BP 125 / 75; Pulse 67; Resp 18; Pulse Ox 99% on R/A; 03:25 BP 136 / 56; Pulse 64; Resp 18; Pulse Ox 97% on R/A; 04:15 BP 135 / 64; Pulse 63; Resp 18; Pulse Ox 95% on R/A; MDM: 03/07 23:25 Patient medically screened. rn 03/08 01:23 Differential diagnosis: bowel obstruction, cholecystitis, gastritis, gastroesophageal rn reflux disease, GI Bleed, non-specific abd pain, pancreatitis, Peptic Ulcer Disease. Data reviewed: vital signs, nurses notes, lab test result(s), radiologic studies, CT scan, and as a result, I will admit patient. Counseling: I had a detailed discussion with the patient and/or guardian regarding: the historical points, exam findings, and any diagnostic results supporting the discharge/admit diagnosis, lab results, radiology results, the need to transfer to another facility, [facility] does not immediately have the required specialist. Response to treatment: the patient's symptoms have mildly improved after treatment, and as a result, I will admit patient. Admission orders: after a detailed discussion of the patient's condition and case, the admit orders are written by me. ED course: Pt with several episodes of black hematemesis prior to arrival, only 1 here, no GI, will have to transfer for further evaluation and care/scope. No acute findings on ct abdomen.. 03/07 23:31 Order name: Basic Metabolic Panel; Complete Time: 00: rn 03/07 23:31 Order name: CBC with Diff; Complete Time: 00: rn 03/07 23:31 Order name: Hepatic Function; Complete Time: 00: rn 03/07 23:31 Order name: Lipase; Complete Time: 00: rn 03/07 23:31 Order name: Protime (+inr); Complete Time: 00: rn 09/13 23:31 Order name: Ptt, Activated; Complete Time: 00:11 rn 03/07 23:31 Order name: IV Saline Lock; Complete Time: 23:54 rn 03/07 23:31 Order name: Labs collected and sent; Complete Time: 23:54 rn 03/07 23:31 Order name: Gastrocult; Complete Time: 23:54 rn 03/07 23:31 Order name: CT Abd/Pelvis - Without Contrast rn Administered Medications: 00:12 Drug: Zofran (Ondansetron) 4 mg Route: IVP; Site: left hand; 02:08 Follow up: Response: No adverse reaction; Nausea is decreased 00:15 Drug: ProTONIX 40 mg Route: IVP; Site: left hand; 02:08 Follow up: Response: No adverse reaction 00:15 Drug: ProTONIX 8 mg/hr Route: IV; Rate: 25 ml/hr; Site: left hand; 02:07 Follow up: Response: No adverse reaction; IV Status: Infusion continued upon transfer Disposition: 03/08/20 01:28 Transfer ordered to [facility]. Diagnosis is Hematemesis. - Reason for transfer: Higher level of care. - Accepting physician is . - Condition is Stable. - Problem is new. - Symptoms have improved. Signatures: Dispatcher [employer] EDDiego Beth MD MD rn [place], Winsy Corrections: (The following items were deleted from the chart) 04:28 01:28 03/08/2020 01:28 Transfer ordered to [facility]. Diagnosis is Hematemesis. Reason for transfer: Higher level of care. Accepting physician is . Condition is Stable. Problem is new. Symptoms have improved. rn
--- NOTE | 2020-03-08 01:29 | ER ---
Nurse's Notes [facility] Name: Fifi Salamanca Age: 69 yrs Sex: Female : 1950 Arrival Date: 03/07/2020 Time: 23:17 Bed 16 Private MD: Diagnosis: Hematemesis Presentation: 03/07 23:24 Chief complaint: EMS states: Pt with Hx of ESRD on HD, family called EMS as Pt vomiting wh for 4-6 hours. Pt vomiting black colored vomitus. Pt with Hx of CVA with PEG tube tube. Coronavirus screen: Client denies travel out of the [place] in the last 14 days. At this time, the client does not indicate any symptoms associated with coronavirus-19. Ebola Screen: Patient negative for fever greater than or equal to 101.5 degrees Fahrenheit, and additional compatible Ebola Virus Disease symptoms Patient denies exposure to infectious person. Initial Sepsis Screen: Does the patient meet any 2 criteria? No. Patient's initial sepsis screen is negative. Does the patient have a suspected source of infection? Yes: Acute abdominal pain. Risk Assessment: Do you want to hurt yourself or someone else? Patient reports no desire to harm self or others. Onset of symptoms was March 07, 2020. 23:24 Method Of Arrival: EMS: [facility] 23:24 Acuity: ROBERT 3 Historical: - Allergies: 03/08 02:04 Aspirin; - PMHx: 02:04 CVA; Diabetes - IDDM; High Cholesterol; Hypertension; Myocardial infarction; ESRD; - PSHx: 02:04 BKA; - Immunization history:: Adult Immunizations unknown. - Family history:: not pertinent. - Social history:: Smoking status: Patient/guardian denies using. - Hospitalizations: : No recent hospitalization is reported. Screenin/13 23:30 Abuse screen: Denies threats or abuse. Denies injuries from another. Nutritional screening: No deficits noted. Tuberculosis screening: No symptoms or risk factors identified. Fall Risk IV access (20 points). Assessment: 23:30 General: Appears in no apparent distress. Behavior is calm, cooperative, appropriate wh for age. Pain: Unable to use pain scale. Confused. Neuro: Level of Consciousness is awake, alert, confused, Oriented to person, place, Hx of CVA with R side deficit. Cardiovascular: Heart tones S1 S2 Dialysis shunt: in the anterior aspect of right upper chest. Respiratory: Airway is patent Respiratory effort is even, unlabored, Respiratory pattern is regular, symmetrical, Breath sounds are clear bilaterally. GI: Abdomen is flat, non-distended, PEG tube in place, clamped. Bowel sounds present X 4 quads. Abd is soft and non tender Parent/caregiver reports the patient having nausea, vomiting. : No signs and/or symptoms were reported regarding the genitourinary system. EENT: No signs and/or symptoms were reported regarding the EENT system. Derm: Skin is intact. Musculoskeletal: Amputation of RIght BKA. 03/08 00:55 Reassessment: Patient appears in no apparent distress at this time. Patient and/or wh family updated on plan of care and expected duration. Pain level reassessed. 02:01 Reassessment: Patient appears in no apparent distress at this time. Patient and/or wh family updated on plan of care and expected duration. Pain level reassessed. Notified of POC need for transfer. 03:14 Reassessment: Report given to Lizzeth Camacho RN. 03:18 Reassessment: Notified ED Son of PT about transfer to [facility]. 03:24 Reassessment: Patient appears in no apparent distress at this time. Patient and/or wh family updated on plan of care and expected duration. Pain level reassessed. 04:15 Reassessment: Patient and/or family updated on plan of care and expected duration. Pain wh level reassessed. Report given to [facility]. Vital Signs: 03/07 23:30 BP 133 / 60; Pulse 68; Resp 18; Temp 98.2; Pulse Ox 99% ; 03/08 01:00 BP 145 / 59; Pulse 67; Resp 18; Pulse Ox 98% on R/A; 02:00 BP 125 / 75; Pulse 67; Resp 18; Pulse Ox 99% on R/A; 03:25 BP 136 / 56; Pulse 64; Resp 18; Pulse Ox 97% on R/A; 04:15 BP 135 / 64; Pulse 63; Resp 18; Pulse Ox 95% on R/A; ED Course: 03/07 23:17 Patient arrived in ED. cf2 23:24 Arabella Hernandez is Primary Nurse. 23:25 Diego Chris MD is Attending Physician. rn 23:28 Triage completed. 23:30 Arm band placed on right wrist. 23:30 Patient has correct armband on for positive identification. Placed in gown. Bed in low wh position. Call light in reach. Side rails up X 1. Pulse ox on. NIBP on. 23:30 No provider procedures requiring assistance completed. Maintain EMS IV. Dressing wh intact. Good blood return noted. Site clean \T\ dry. Gauge \T\ site: 20g LH. 03/08 00:56 CT Abd/Pelvis - Without Contrast In Process Unspecified. EDMS 01:29 initiated a transfer with Santa Caal RN from [facility]. 2 02:19 administrative approval given by Santa Caal RN/patient has been accepted to [place] [id number] bed 1527/ Dr. Capps has accepted the patient in transfer/ report to be called to [phone]. 04:28 Patient transferred, IV remains in place. Administered Medications: 00:12 Drug: Zofran (Ondansetron) 4 mg Route: IVP; Site: left hand; 02:08 Follow up: Response: No adverse reaction; Nausea is decreased 00:15 Drug: ProTONIX 40 mg Route: IVP; Site: left hand; 02:08 Follow up: Response: No adverse reaction 00:15 Drug: ProTONIX 8 mg/hr Route: IV; Rate: 25 ml/hr; Site: left hand; 02:07 Follow up: Response: No adverse reaction; IV Status: Infusion continued upon transfer Outcome: 01:28 ER care complete, transfer ordered by . rn 04:28 Transferred to [facility], Transfer form completed. X-rays sent w/ patient. Note: Report given to [facility] 04:28 Condition: stable 04:28 Instructed on the need for transfer. 04:28 Patient left the ED. Signatures: Dispatcher [employer] EDMS Diego Chris MD MD rn [place], Winsy Kavin Pinto mw2 Dannie Lind 2
[2020-03-08 04:40] VITALS: TEMP 98.2
[2020-03-08 04:45] VITALS: BP 135/64; O2SAT 95
--- NOTE | 2020-03-10 13:50 | RAD REPORT ---
EXAM DESCRIPTION: CT - Abdomen Pelvis Wo Contrast - 03/08/2020 4:17 am CLINICAL HISTORY: Abd pain; Nausea, vomiting TECHNIQUE: Contiguous axial images obtained through the abdomen and pelvis without IV contrast. Pallavi nal and sagittal reformatted images were provided. This exam was performed according to our departmental dose-optimization program, which includes autom ated exposure control, adjustment of the mA and/or kV according to patient size and/or use of iterati ve reconstruction technique. COMPARISON: None available for comparison. FINDINGS: Lung bases: Small to moderate bilateral pleural effusions, right greater than left. Adjace nt bibasilar consolidation. The heart is enlarged. Coronary artery and mitral annular calcification. Liver: Grossly unremarkable Gallbladder and biliary system: Multiple layering gallstones within a distended gallbladder. No gallb ladder wall thickening or pericholecystic fluid. Pancreas: Grossly unremarkable Spleen: Grossly unremarkable Adrenals: Mild bilateral adrenal thickening. Kidneys: Cortical thinning/scar at the posterior upper pole on the left. Adjacent parenchymal calcifi cations. No calculi within the renal collecting systems. No hydronephrosis. Bowel: Gastrostomy tube in place. Moderate stool. No obstruction. No appreciable mucosal thickening. Appendix: Normal caliber appendix. No findings to suggest acute appendicitis. Urinary bladder: Unremarkable Reproductive: Unremarkable as visualized Lymph nodes: No pathologically enlarged lymph nodes. Peritoneum: Small amount of free fluid within the pelvis. No free air. Vessels: Moderate atherosclerotic disease. No abdominal aortic aneurysm. Abdominal wall: Diffuse body wall edema. Decubitus ulcer at the level of the coccyx. Bones: Mild multilevel spondylosis. No acute fracture. No osseous destruction or erosion. IMPRESSION: 1. Moderate stool. No bowel obstruction. No appreciable mucosal thickening. 2. Cholelithiasis. The gallbladder is distended. No gallbladder wall thickening or pericholecystic fluid. 3. Decubitus ulcer at the level of the coccyx. No osseous destruction or erosion. 4. Small to moderate bilateral pleural effusions, right greater than left. Adjacent bibasilar conso lidation (atelectasis and/or infiltrate). 5. Other findings as above. Electronically signed by: Panda Landa MD 03/08/2020 1:10 AM CDT Due to temporary technical issues with the PACS/Fluency reporting system, reports are being signed by the in house radiologist without review as a courtesy to ensure prompt reporting. The interpreting r adiologist is fully responsible for the content of the report.
== END 2020-03-08 04:28 | disposition short-term general hospital (02) ==
LOC: ER 23:11
DX: K92.0 Hematemesis (principal); E11.22 Type 2 diabetes mellitus with diabetic chronic kidney disease; I12.0 Hypertensive chronic kidney disease with stage 5 chronic kidney disease or end stage renal disease; N18.6 End stage renal disease; Z88.6 Allergy status to analgesic agent
CPT/HCPCS: 96365; 85025; 80048; 36415; 85610; 80076; 85730; 83690; 74176; 96375; 99285; 96366; C9113 ×2; J7050; J2405

== ENCOUNTER 2020-04-27 09:50 | Inpatient (IN) | payer OTHER ==
--- OUTSIDE RECORDS SUMMARY | 2020-04-27 09:55 | XMS REPORT | Clinical Summary ---
:1950 Author Organization [facility] Address [address] [place] [address] Care Team Providers Name Role Phone Sharpless Primary Care Provider Unavailable Allergies Active Allergy Reactions Severity Noted Date Comments Aspirin Nausea And Vomiting 03/08/2020 Medications Medication Sig Dispensed Refills Start Date [...] times daily. Active Problems Problem Noted Date HTN (hypertension) 03/08/2020 Anemia 03/08/2020 GI bleed 03/08/2020 DM (diabetes mellitus) 03/08/2020 Left pontine stroke 02/27/2017 ESRD (end stage renal disease) Encounters Date Type Specialty Care Team Description 03/08/2020 - Hospital General Internal Odalis Capps Gastroi ntestinal hemorrhage, unspecified gastrointestinal hemorrhage type; 03/09/2020 Encounter Medicine MD Shruthi Hypertension, unspecified type; [place], ESRD (end stage renal disease) on dialysis ([facility]); MD Chuck Hyperkalemia; Niesha Corado Anemia due to chronic kidney disease, on chronic dialysis ([facility]); MD Orquidea ESRD (end stage renal disease) ([facility]); Left pontine [facility] ([facility]) after 04/27/2019 Family History Medical History Relation Name Comments [...] Assigned at Date Recorded Not on file Last Filed Vital Signs Vital Sign Reading Time Taken Comments Blood Pressure 129/70 03/09/2020 12:35 PM CDT Pulse 75 03/09/2020 12:35 PM CDT Temperature 36.4 C (97.6 F) 03/09/2020 11:47 AM CDT Respiratory Rate 18 03/09/2020 11:47 AM CDT Oxygen Saturation 94% 03/09/2020 11:47 AM CDT Inhaled Oxygen Concentration - - Weight 48.2 kg (106 lb 4.2 oz) 03/08/2020 11:45 PM CDT Height 162.6 cm (5' 4") 03/08/2020 5:00 PM CDT Body Mass Index 18.24 03/08/2020 5:00 PM CDT Plan of Treatment Health Maintenance Due Date Last Done Comments BREAST CANCER SCREENING 1950 COLON CANCER SCREENING COLONOSCOPY 1950 DIABETIC EYE EXAM 1959 DIABETIC FOOT EXAM 1959 URINE MICROALBUMIN 1959 MEDICARE ANNUAL WELLNESS (YEAR 2 or FIRST 12/24/2008 YEAR if no IPPE) PNEUMOCOCCAL 65+ YRS (1 of 1 - 2014 [id number]) INFLUENZA VACCINE (#1) 2020 HEMOGLOBIN A1C 09/05/2020 03/08/2020, 02/28/2017 Procedures Procedure Name Priority Date/Time Associated Comments Diagnosis RHYTHM STRIP - SCAN 03/10/2020 3:50 PM CDT POCT-GLUCOSE METER Routine 03/09/2020 3:09 Resul ts for this PM CDT procedure are i n the results section. POCT-GLUCOSE METER Routine 03/09/2020 11:35 Resul ts for this AM CDT procedure are i n the results section. POCT-GLUCOSE METER Routine 03/09/2020 10:22 Resul ts for this AM CDT procedure are i n the results section. CBC W/PLT COUNT & Routine 03/09/2020 10:15 Result s for this AUTO DIFFERENTIAL AM CDT procedure are in the results section. MAGNESIUM Routine 03/09/2020 10:15 Results for this AM CDT procedure are i n the results section. PHOSPHORUS Routine 03/09/2020 10:15 Results for this AM CDT procedure are i n the results section. HEMOGLOBIN AND Routine 03/09/2020 10:15 Results f or this HEMATOCRIT AM CDT procedure are i n the results section. BASIC METABOLIC PANEL Routine 03/09/2020 10:15 Re sults for this (7) AM CDT procedure are i n the results section. CBC W/PLT COUNT & Routine 03/09/2020 10:15 Result s for this AUTO DIFFERENTIAL AM CDT procedure are in the results section. POCT-GLUCOSE METER Routine 03/09/2020 6:31 Resul ts for this AM CDT procedure are i n the results section. POCT-GLUCOSE METER Routine 03/09/2020 12:15 Resul ts for this AM CDT procedure are i n the results section. HEMOGLOBIN AND Routine 03/08/2020 11:27 Results f or this HEMATOCRIT PM CDT procedure are i n the results section. POCT-GLUCOSE METER Routine 03/08/2020 10:44 Resul ts for this PM CDT procedure are i n the results section. HEMODIALYSIS Routine 03/08/2020 9:23 INPATIENT PM CDT POCT-GLUCOSE METER Routine 03/08/2020 4:16 Resul ts for this PM CDT procedure are i n the results section. HEMOGLOBIN AND Routine 03/08/2020 2:58 Results f or this HEMATOCRIT PM CDT procedure are i n the results section. HEPATITIS B SURFACE STAT 03/08/2020 2:58 Resu lts for this ANTIGEN PM CDT procedure are i n the results section. POCT-GLUCOSE METER Routine 03/08/2020 11:00 Resul ts for this AM CDT procedure are i n the results section. VITAMIN B12 AND Routine 03/08/2020 10:35 Results for this FOLATE AM CDT procedure are i n the results section. FERRITIN Routine 03/08/2020 10:35 Results for this AM CDT procedure are i n the results section. IRON, TIBC, % SAT. Routine 03/08/2020 10:35 Resul ts for this (WITHOUT FERRITIN) AM CDT procedure are in the results section. PROTHROMBIN TIME/INR Routine 03/08/2020 10:35 Res ults for this AM CDT procedure are i n the results section. HEMOGLOBIN A1C Routine 03/08/2020 10:35 Results f or this AM CDT procedure are i n the results section. CBC W/PLT COUNT & Routine 03/08/2020 6:24 Result s for this AUTO DIFFERENTIAL AM CDT procedure are in the results section. RETICULOCYTE COUNT Add-On 03/08/2020 6:24 Resul ts for this AM CDT procedure are i n the results section. HEPATIC FUNCTION Routine 03/08/2020 6:24 Results for this PANEL AM CDT procedure are i n the results section. BASIC METABOLIC PANEL Routine 03/08/2020 6:24 Re sults for this (7) AM CDT procedure are i n the results section. CBC W/PLT COUNT & Routine 03/08/2020 6:24 Result s for this AUTO DIFFERENTIAL AM CDT procedure are in the results section. SARS-COV2/RT-PCR Routine 03/08/2020 5:55 Results for this (HS & REF LABS) AM CDT procedure are in the results section. POCT-GLUCOSE METER Routine 03/08/2020 5:36 Resul ts for this AM CDT procedure are i n the results section. after 04/27/2019 Results RHYTHM STRIP - SCAN (03/10/2020 3:50 PM CDT) Narrative Performed At This result has an attachment that is no t available. POC-Glucose meter (03/09/2020 3:09 PM CDT)Only the most recent of9 results within the time period is included. POC-Glucose Meter 111 (H)Comment: 70 - 110 mg/dL [facility] : TESTED AT [address], [address]: Teaching Pastor/Technic amanda ID = [id number] for JAROCHO CHAVEZ Specimen Blood Performing Organization Address City/State/Zipcode Phone Number [address] [phone] CENTER CBC with platelet count + automated diff (03/09/2020 10:15 AM CDT)Only the most recent of2 resultswithin the time period is included. Pathologist Sig nature WBC 12.9 (H) 3.5 - 10.5 [facility] RBC 3.23 (L) 3.93 - 5.22 [facility] M/L [facility] Hemoglobin 9.3 (L) 11.2 - 15.7 [facility] GM/DL [facility] Hematocrit 30.9 (L) 34.1 - 44.9 % [facility] MCV 95.7 (H) 79.4 - 94.8 fL [facility] MCH 28.8 25.6 - 32.2 pg [facility] MCHC 30.1 (L) 32.2 - 35.5 [facility] RDW 16.2 (H) 11.7 - 14.4 % [facility] Platelets 360 150 - 450 K/CU [facility] MPV 9.7 9.4 - 12.3 fL [facility] nRBC 0 0 - 0 /100 WBC [facility] % Neutros 88 % [facility] % Lymphs 6 % [facility] % Monos 4 % [facility] % Eos 1 % [facility] % Baso 0 % [facility] # Neutros 11.38 (H) 1.56 - 6.13 [facility] # Lymphs 0.72 (L) 1.18 - 3.74 [facility] # Monos 0.53 (H) 0.24 - 0.36 [facility] # Eos 0.11 0.04 - 0.36 [facility] # Baso 0.05 0.01 - 0.08 [facility] Immature 1 0 - 1 % [facility] Granulocytes-Relativ [facility] Specimen Blood Performing Organization Address [facility] Cent[facility]ode Phone Number [address] [address] CENTER Hemoglobin and hematocrit (03/09/2020 10:15 AM CDT)Only the most recent of3 resultswithin the time period is included. Pathologist Sig nature Hemoglobin 9.3 (L) 11.2 - 15.7 GM/DL [facility] Hematocrit 30.9 (L) 34.1 - 44.9 % [facility] Specimen Blood Narrative Performed At Teaching Pastor ID - [id number] [facility] [place] Performing Organization Address [facility] Phone Number [address] [address] CENTER Phosphorus (03/09/2020 10:15 AM CDT) Pathologist Sig nature Phosphorus 3.1 2.3 - 4.7 mg/dL [facility] Specimen Blood Narrative Performed At Teaching Pastor ID - [facility] Performing Organization Address [facility] Phone Number [address] [address] CENTER Magnesium (03/09/2020 10:15 AM CDT) Pathologist Sig nature Magnesium 1.7 1.6 - 2.6 mg/dL [facility] Specimen Blood Narrative Performed At Teaching Pastor ID - ROSIANG [facility] Performing Organization Address [facility] Centercode Phone Number [address] [address] CENTER Basic Metabolic Panel (03/09/2020 10:15 AM CDT)Only the most recent of2 results within the time period is included. Sodium 134 (L) 136 - 145 meq/L [facility] Potassium 3.8 3.5 - 5.1 meq/L [facility] Chloride 101 98 - 107 meq/L [facility] CO2 28 22 - 29 meq/L [facility] BUN 12 7 - 21 mg/dL [facility] Creatinine 1.88 (H) 0.57 - 1.25 [facility] mg/dL [facility] Glucose 102 70 - 105 mg/dL [facility] Calcium 7.9 (L) 8.4 - 10.2 [facility] mg/dL [facility] EGFR 26Comment: ESTIMATED mL/min/1.73 sq [facility] GFR IS NOT m [facility] ACCURATE [place] CREATININE CLEARANCE IN PREDICTING GLOMERULAR FILTRATION RATE. ESTIMATED GFR IS NOT APPLICABLE FOR DIALYSIS PATIENTS. Specimen Blood Narrative Performed At Teaching Pastor ID - [facility] Performing Organization Address City/[facility]/Zipcode Phone Number [facility] [address] [place] [address] CENTER Hepatitis B surface antigen (03/08/2020 2:58 PM CDT) Pathologist Sig nature HBsAg Screen Nonreactive Nonreactive [facility] Specimen Blood Narrative Performed At Specimen is considered negative for HBsAg. [facility] Performing Organization Address City/[facility]/Zipcode Phone Number [facility] [address] [place] [address] CENTER Vitamin B12 and Folate (03/08/2020 10:35 AM CDT) Pathologist Sig nature Vitamin B12 864 (H) 213 - 816 pg/mL [facility] Folate 6.20 (L) >=7.00 ng/mL [facility] Specimen Blood Narrative Performed At Teaching Pastor ID - FSE [facility] Performing Organization Address City/State/Zipcode Phone Number [address] [address] CENTER Iron, TIBC, % sat. (without ferritin) (03/08/2020 10:35 AM CDT) Pathologist Sig nature Iron 17.0 (L) 40.0 - 160.0 [facility] ug/dL [facility] TIBC 59 (L) 250 - 450 ug/dL [facility] Iron % Saturation 29 20 - 55 % [facility] Specimen Blood Narrative Performed At Teaching Pastor ID - FSE [facility] Performing Organization Address City/[facility] Phone Number [address] [address] [place] Prothrombin time/INR (03/08/2020 10:35 AM CDT) Pathologist Sig nature Protime 15.0 (H) 11.9 - 14.2 seconds [facility] INR 1.21 <=5.90 [facility] Specimen Blood Narrative Performed At Effective 11/20/2018: PT Reference Range [facility] Change New: 11.9-14.2 Previous: 11.7-14.7 RECOMMENDED COUMADIN/WARFARIN INR THERAPY RANGES STANDARD DOSE: 2.0-3.0 Includes: PROPHYLAXIS for venous thrombosis, systemic embolization; TREATMENT for venous thrombosis and/or pulmonary embolus. HIGH RISK: Target INR is 2.5-3.5 for patients wiht mechanical heart valves. Performing Organization Address City/State/Zipcode Phone Number [address] [address] [place] Hemoglobin A1c (03/08/2020 10:35 AM CDT) Pathologist Sig nature Hemoglobin A1C 5.1 4.3 - 6.1 % [facility] Specimen Blood Performing Organization Address City/State/[facility] Centercode Phone Number [address] [address] CENTER Ferritin (03/08/2020 10:35 AM CDT) Pathologist Sig nature Ferritin 883.54 (H) 5.00 - 275.00 ng/mL [facility] Specimen Blood Narrative Performed At Teaching Pastor ID - FSE [facility] Performing Organization Address City/[facility] Phone Number [address] [address] [place] Reticulocyte count (03/08/2020 6:24 AM CDT) Pathologist Sig nature % Retic 3.3 (H) 0.5 - 1.7 % [facility] Specimen Blood Narrative Performed At Teaching Pastor ID - [id number] [facility] Performing Organization Address [facility] Phone Number [address] [address] [place] Hepatic function panel (03/08/2020 6:24 AM CDT) Pathologist Sig elvis Protein, Total 6.0 6.0 - 8.3 gm/dL [facility] Albumin 2.2 (L) 3.5 - 5.0 g/dL [facility] Total Bilirubin 0.5 0.2 - 1.2 mg/dL [facility] Bilirubin, Direct 0.3 0.1 - 0.5 mg/dL [facility] Alkaline Phosphatase 87 40 - 150 U/L [facility] AST 12 5 - 34 U/L [facility] ALT 6 6 - 55 U/L [facility] Specimen Blood Narrative Performed At Teaching Pastor ID - AAHAMID [facility] Performing Organization Address [facility] Phone Number [address] [place] [address] CENTER SARS-CoV2/RT-PCR (Asymptomatic ONLY) (03/08/2020 5:55 AM CDT) SARS-COV2/RT-PCR Negative Not Detected, LETY FINCH Negative, See [facility] external report CENTER for linked test SARS-COV-2 [facility] PRICILA FINCH PERFORMING LAB [facility] Specimen Other - Nasopharyngeal wall structure (b beth structure) Narrative Performed At Negative result for this test determines that LETY SEYMOURHerbert [facility] SARS-CoV-2 RNA was not present in the specimen above the Limit of Detection (LOD). However, Negative results do not preclude SARS-CoV-2 infection and should not be used as the sole basis for treatment or patient management decisions. Negative results must be combined with clinical observations, patient history, and epidemiological information. A false negative result may occur if a specimen is improperly collected, transported or handled. A false negative result should be considered if patient's recent exposures or clinical presentation indicate that COVID-19 (SARS-CoV-2) is likely and diagnostic tests for other causes of illness are negative. Re-testing should be considered in cases of suspected false negatives. The limit of detection for this assay is 800 copies/mL. This SARS CoV-2 test is a real-time RT-PCR test intended for the qualitative detection of nucleic acid from SARS-CoV-2 in a nasopharyngeal swab specimen collected from individuals suspected of COVID-19 by their healthcare provider. This test has not been Food and Drug Administration (FDA) cleared or approved. This is a modified version of an approved Emergency Use Authorization (EUA) and is in the process of review by the FDA. Once authorized by the FDA, the issued EUA will be effective until the declaration that circumstances exist justifying the authorization of the emergency use of in vitro diagnostic tests for detection and/or diagnosis of COVID-19 is terminated under Section 564(b)(2) of the Act or the EUA is revoked under Section 564(g) of the Act. Fact Sheet for Healthcare Providers: https://www.[employer].eTipping/sites/default/files/pro duct/documents/Fact_Sheet_HC_Providers_Pricila_SA RS-CoV-2.pdf Fact Sheet for Healthcare Patients: https://www.[employer].com/sites/default/files/pro duct/documents/Fact_Sheet_Patients_Lyra_SARS-C oV-2.pdf Performing Laboratory: [facility] [address] [place] [address]. [place] [address] Performing Organization Address City/State/Zipcode Phone Number [facility] [address] [place] [address] CENTER after 04/27/2019 Insurance Payer Benefit Plan / Subscriber ID Effective Phone Address T ype Group Dates CIGNA CIGNA [id number] 2007-Pre Maps [employer] sent Cont racted ALL CDC REVIEW CDC REVIEW [id number] 2020-[place] [address] [place] [address] Advance Directives For more information, please contact: [phone] Code Status Date Activated Date Inactivated Comments Full Code 03/08/2020 7:24 AM 03/09/2020 7:15 PM This code status was determined by: Patient Full Code 02/27/2017 7:43 PM 03/09/2017 10:36 PM This code status was determined by: Patient
--- OUTSIDE RECORDS SUMMARY | 2020-04-27 09:57 | XMS REPORT | Continuity of Care Document ---
:1950 Author Organization [facility] t Address [address] [place] [address] Care Team Providers Name Role Phone Sharpless Primary Care Physician Unavailable Jefry RIVAS, Melo Attending Clinician Santhosh RIVAS Attending Clinician Orquidea Corado MD Attending Clinician MELO CAPPS Attending Clinician Unavailable Parviz MONROE Attending Clinician Unavailable SANTHOSH Admitting Clinician Unavailable Shawna HANEY Admitting Clinician Unavailable Payers Payer Name Policy Type Policy Effective Date Expiration Date Sour ce Number CIGNA [id number] 2007 [facility] [id number] 2007-Pr esentMaps Contracted CDC REVIEWCDC [id number] 2020 [facility] [id number]/ 00:00:00 [place] [address] Problems Condition Condition Condition Status Onset Resolution Last Treating Co mments Source Name Details Category Date Date Treatment Clinician Date HTN HTN Disease Active [facility] (hypertens 9-14 Qi kes - ion) ion) 00:00: Medical [address] [place] [address] Anemia Anemia Disease [facility] 00 [place] GI bleed GI bleed Disease Active [facility] S t 03-08 kes - 00:00: Medical 00 [place] DM DM Disease Active [facility] (diabetes (diabetes 03-08 [facility] - mellitus) mellitus) 00:00: Medi becky 00 [place] 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 00:00: Medical 00 [place] 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[facility] stage stage [facility] - renal renal Medical disease) disease) Center Allergies, Adverse Reactions, Alerts Allergy Allergy Status Severity Reaction(s) Onset Inactive Treating Comm ents Source Name Type Date Date Clinician Aspirin Propensi Active Nausea And [facility] ty [facility]: Medical reaction 00 [place] s Family History Family Member Diagnosis Comments Start Date Stop Date Source Natural brother Heart disease [facility] Natural father Diabetes [facility] Maternal grandfather Cancer [facility] Maternal grandmother Heart disease C [facility] Natural mother Cancer [facility] Natural sister Diabetes [facility] Social History Social Habit Start Date Stop Date Quantity Comments Source Sex Assigned At [facility] Tobacco use and 2017-02-27 2017-02-27 Never used [facility] exposure 00:00:00 00:00:00 [facility] Alcohol intake 2017-02-27 2017-02-[address] [facility] 00:00:00 00:00:00 non-drinker of [facility] nter alcohol (finding) Smoking Status Start Date Stop Date Source Never smoker [facility] Medications Ordered Filled Start Stop Current Ordering Indication Dosage Frequency Signature Comments Components Source Medication Medication Date Date Medication? Clinician (SIG) Name Name SITagliptin Yes 100mg QD Take [address] (JANUVIA) 9-15 mg by [facility] - 100 MG 17:15: mouth Medical tablet 23 daily. [place] amLODIPine Yes 10mg QD Take [address] (NORVASC) 9-15 by mouth [facility] - 10 MG 17:15: daily. Medical tablet 23 [place] esomeprazol 2020-0 Yes 40mg QD Take [address] e (NEXIUM) 9-15 by mouth [facility] - 40 MG 17:15: daily. Medical capsule 23 [place] aspirin 81 2019- Yes 81mg QD Take [address] MG EC 9-15 by mouth [facility] - tablet 17:15: daily. [facility] 23 [place] clopidogrel Yes 75mg QD Take [address] (PLAVIX) 75 9-15 by mouth Luke s - mg tablet 17:15: daily. Medica l 23 [place] lisinopril Yes 40mg QD Take [address] (PRINIVIL,Z 9-15 by mouth Luke s - ESTRIL) 40 17:15: daily. Medic al MG tablet 23 [place] insulin Yes 50U Q.5D Inject 50 [facility] S t detemir 9-12 Units [facility] - (LEVEMIR) 00:00: subcutaneo Me dical 100 unit/mL 00 usly 2 Center injection (two) times daily. Vital Signs Vital Name Observation Time Observation Value Comments Source Systolic blood 2020-03-09 12:35:00 129 mm[Hg] [facility] Diastolic blood 2020-03-09 12:35:00 70 mm[Hg] [facility] S t [facility] Heart rate 2020-03-09 12:35:00 75 /min [facility] Body temperature 2020-03-09 11:47:00 36.44 Mariah [facility] Respiratory rate 2020-03-09 11:47:00 18 /min [facility] Oxygen saturation in 2020-03-09 11:47:00 94 /min [facility] Arterial blood by Medical Ce nter Pulse oximetry Body weight 2020-03-08 23:45:00 48.2 kg [facility] BMI 2020-03-08 23:45:00 18.24 kg/m2 [facility] Body height 2020-03-08 17:00:00 162.6 cm [facility] Procedures Procedure Date / Time Performed Performing Clinician Sourradha e RHYTHM STRIP - SCAN 2020-03-10 15:50:18 Provider, Default [facility] POCT-GLUCOSE METER 2020-03-09 15:09:00 [facility] 2020-03-09 11:35:00 Mak [facility] POCT-GLUCOSE METER 2020-03-09 10:22:00 Mak [facility] BASIC METABOLIC PANEL 2020-03-09 10:15:00 [facility] () [facility] HEMOGLOBIN AND 2020-03-09 10:15:00 [facility] PHOS[facility]US 2020-03-09 10:15:00 He Velez [facility] MAGNESIUM 2020-03-09 10:15:00 He Velez [facility] CBC W/PLT COUNT & AUTO 2020-03-09 10:15:00 [facility] POCT-GLUCOSE METER 2020-03-09 06:31:00 Mak [facility] POCT-GLUCOSE METER 2020-03-09 00:15:00 Mak [facility] HEMOGLOBIN AND 2020-03-08 23:27:00 [facility] POCT-GLUCOSE METER 2020-03-08 22:44:00 Mak [facility] HEMODIALYSIS INPATIENT 2020-03-08 21:23:23 He Velez [facility] POCT-GLUCOSE METER 2020-03-08 16:16:00 [facility] HEPATITIS B SURFACE 2020-03-08 14:58:00 He Velez [facility] HEMOGLOBIN AND 2020-03-08 14:58:00 [facility] POCT-GLUCOSE METER 2020-03-08 11:00:00 [facility] HEMOGLOBIN A1C 2020-03-08 10:35:00 [facility] PROTHROMBIN TIME/INR 2020-03-08 10:35:00 Chuck Ahumada [facility] IRON, TIBC, % SAT. 2020-03-08 10:35:[address] [facility] Medical Cent[facility] r FERRITIN 2020-03-08 10:35:00 Santhosh [facility] VITAMIN B12 AND FOLATE 2020-03-08 10:35:00 Santhosh [facility] BASIC METABOLIC PANEL 2020-03-08 06:24:00 Odalis Capps [facility] (7) [facility] HEPATIC FUNCTION PANEL 2020-03-08 06:24:00 Odalis Capps [facility] RETICULOCYTE COUNT 2020-03-08 06:24:00 Santhosh [facility] CBC W/PLT COUNT & AUTO 2020-03-08 06:24:00 Odalis Capps [facility] - DIFFERENTIAL [facility] SARS-COV2/RT-PCR ([facility] & 2020-03-08 05:55:00 Odalis Capps [facility] - REF LABS) [facility] POCT-GLUCOSE METER 2020-03-08 05:36:00 Odalis Capps [facility] - [facility] [id number] 2020-01-05 00:00:00 E[facility] 7T2M16F 2020-01-05 00:00:00 E[facility] 2L1H74S 2020-01-05 00:00:00 ENC[facility] 9N9T13Y 2020-01-05 00:00:00 E[facility] 4I5C11L 2020-01-05 00:00:00 ENC[facility] 8Y3R85E 2020-01-05 00:00:00 E[facility] 9F4L15E 2020-01-05 00:00:00 E[facility] 9R8N95Z 2020-01-05 00:00:00 E[facility] 3U8X26B 2020-01-05 00:00:00 ENCPL 7N5E43Q 2020-01-05 00:00:00 ENCPL 7Z0E05I 2020-01-05 00:00:00 ENC[facility] 2X3K80R 2020-01-05 00:00:00 ENCPL 0E3I62Q 2020-01-05 00:00:00 ENCPL 1M0O71Y 2020-01-05 00:00:00 ENCPL 9F0T11A 2020-01-05 00:00:00 ENCPL 8H8I24W 2020-01-05 00:00:00 ENCPL 0X5S71Z 2020-01-05 00:00:00 ENCPL 7E2M98Y 2020-01-05 00:00:00 ENCPL 4Z7C27W 2020-01-05 00:00:00 ENCPL 5F3K41L 2020-01-05 00:00:00 ENCPL 3B7T22Q 2020-01-05 00:00:00 ENCPL 8F8B69S 2020-01-05 00:00:00 ENCPL 7B9J57W 2020-01-05 00:00:00 ENCPL 4K9L07Y 2020-01-05 00:00:00 ENCPL 3Z7C95X 2020-01-05 00:00:00 ENCPL 4I6M75Y 2020-01-05 00:00:00 ENCPL 0W1R81K 2020-01-05 00:00:00 ENCPL 9W7S09Z 2020-01-05 00:00:00 ENCPL 0A8Y30Y 2020-01-05 00:00:00 ENCPL 0X1U21L 2020-01-05 00:00:00 ENCPL 9K2M14H 2020-01-05 00:00:00 ENCPL Plan of Care Planned Activity Planned Date Details Comments Source Future Scheduled 2020-09-[address] [facility] - Test 00:00:00 [facility] (procedure) [code = 58994102] Future Scheduled 2020-02-24 INFLUENZA VACCINE (#1) [facility] Test 00:00:00 [code = INFLUENZA Medical Ce nter VACCINE (#1)] Future Scheduled 2014 PNEUMOCOCCAL 65+ YRS [facility] - Test 00:00:00 (1 of 1 - Medical Center [id number]_[id number] PCV13) [code = PNEUMOCOCCAL 65+ YRS (1 of 1 - CXJQ43_Ralzuik PCV13)] Future Scheduled 2008-12-[address] [facility] - Test 00:00:00 WELLNESS (YEAR 2 or Medical Center FIRST YEAR if no IPPE) [code = MEDICARE ANNUAL WELLNESS (YEAR 2 or FIRST YEAR if no IPPE)] Future Scheduled 1959 DIABETIC EYE EXAM [facility] - Test 00:00:00 [code = DIABETIC EYE Medical Center EXAM] Future Scheduled [address] [facility] - Test 00:00:00 examination Medical Center (regime/therapy) [code = 359487736] Future Scheduled 1959 Urine screening for [facility] - Test 00:00:00 protein (procedure) Medical Center [code = 627482618] Future Scheduled [address] [facility] - Test 00:00:00 malignant neoplasm of [facility] breast (procedure) [code = 375776193] Future Scheduled [address] [facility] - Test 00:00:00 malignant neoplasm of [facility] colon (procedure) [code = 951806628] Encounters Start End Encounter Admission Attending Care Care Encounter Source Date/Time Date/Time Type Type Clinicians Facility Department ID 2020-01-16 Outpatient NEW ENCGEN ENCGEN [id number] EN CGEN 13:22:45 ADMISSION Results Test Description Test Time Test Comments Results Result Comments Source Basic Metabolic Panel 2020-03-09 15:38:00 Test Item Value Reference Range Interpretation Comme nts Sodium (test code = 134 meq/L 136-145 L 2951-2) Potassium (test code = 3.8 meq/L 3.5-5.1 2823-3) Chloride (test code = 101 meq/L 98-107 2075-0) CO2 (test code = 2027-9) 28 meq/L 22-29 BUN (test code = 3094-0) 12 mg/dL 7-21 Creatinine (test code = 1.88 mg/dL 0.57-1.25 H 2160-0) Glucose (test code = 102 mg/dL 70-105 2345-7) Calcium (test code = 7.9 mg/dL 8.4-10.2 L 29787-7) EGFR (test code = 92036-9) 26 mL/min/1.73 sq m ESTIMATED GFR IS NOT ACCURATE CREATININE MIRNA HULL IN PREDICTING GLOMERULAR FILT RATION RATE. ESTIMATED GFR IS NOT APPLICAB LE FOR DIALYSIS MADYSON FINLEY (test code = TUSHAR) Educational Sign Language Interpreter ID - DAVID Lab Interpretation (test Abnormal code = 29399-0) [facility] [id number] 15:38:00 Test Item Value Reference Range Interpretation Comments SODIUM (BEAKER) 134 meq/L 136-145 L (test code = 381) POTASSIUM (BEAKER) 3.8 meq/L 3.5-5.1 (test code = 379) CHLORIDE (BEAKER) 101 meq/L 98-107 (test code = 382) CO2 (BEAKER) (test 28 meq/L 22-29 code = 355) BLOOD UREA NITROGEN 12 mg/dL 7-21 (BEAKER) (test code = 354) CREATININE (BEAKER) 1.88 mg/dL 0.57-1.25 H (test code = 358) GLUCOSE RANDOM 102 mg/dL 70-105 (BEAKER) (test code = 652) CALCIUM (BEAKER) 7.9 mg/dL 8.4-10.2 L (test code = 697) EGFR (BEAKER) (test 26 mL/min/1.73 ESTIMA DEMETRIO GFR IS code = 1092) sq m NOT ACCURATE CREATININE CLEARANCE IN PREDICTING GLOMERULAR FILTRATION RATE . ESTIMATED GFR I S NOT APPLICABLE FOR DIALYSIS PATIEN TS. Educational Sign Language Interpreter ID - [id number] 15:36:00 Test Item Value Reference Range Interpretation Comments Magnesium (test code = 1.7 mg/dL 1.6-2.6 37804-5) TUSHAR (test code = TUSHAR) Educational Sign Language Interpreter ID - DAVID Lab Interpretation (test Normal code = 28635-6) [facility]2020-[facility]-15 15:36:00 Test Item Value Reference Range Interpretation Comments Phosphorus (test code = 3.1 mg/dL 2.3-4.7 2777-1) TUSHAR (test code = TUSHAR) Educational Sign Language Interpreter ID - PairyIANG Lab Interpretation (test Normal code = 55845-2) [facility]OS[facility]US2020-09-15 15:36:00 Test Item Value Reference Range Interpretation Comments PHOSPHORUS (BEAKER) (test code = 3.1 mg/dL 2.3-4.7 604) Educational Sign Language Interpreter ID - [id number] 15:36:00 Test Item Value Reference Range Interpretation Comments MAGNESIUM (BEAKER) (test code = 1.7 mg/dL 1.6-2.6 627) Educational Sign Language Interpreter ID - SARAGPOC-Glucose [id number] 15:20:00 Test Item Value Reference Range Interpretation Comments POC-Glucose Meter (test 111 mg/dL 70-110 H : TE STED AT [facility] code = 1538) [address] [facility], 770 30: Educational Sign Language Interpreter/Techni jackson ID = [id number] for MELANIE CHAVEZ N Lab Interpretation (test Abnormal code = 78565-6) [facility] CenterPOCT[facility]GLUCOSE [id number] 15:20:00 Test Item Value Reference Range Interpretation Comments POC-GLUCOSE METER 111 mg/dL 70-110 H : TESTED A T [facility] 6720 (JO ANN) (test code = [facility], 1538) [address]: Educational Sign Language Interpreter/Techni jackson ID = [id number] for JAROCHO ARRINGTON POCT-GLUCOSE [id number] 11:47:00 Test Item Value Reference Range Interpretation Comments POC-GLUCOSE METER 87 mg/dL 70-110 : TESTED A T [facility] 6720 (BEAKER) (test code = [facility], 1538) [address]: Educational Sign Language Interpreter/Techni jackson ID = [id number] for Bryon pinoDacia CBC with platelet count + automated [id number] 10:35:00 Test Item Value Reference Range Interpretation Comments WBC (test code = 6690-2) 12.9 3.5- 10.5 K/L H RBC (test code = 789-8) 3.23 3.93- 5.22 M/L L MCHC (test code = 786-4) 30.1 32.2- 35.5 GM/DL L Hematocrit (test code = 4544-3) 30.9 % 34.1-44.9 L MCV (test code = 787-2) 95.7 fL 79.4-94.8 H MCH (test code = 785-6) 28.8 pg 25.6-32.2 RDW (test code = 788-0) 16.2 % 11.7-14.4 H Platelets (test code = 777-3) 360 150- 450 K/CU MM MPV (test code = 04999-6) 9.7 fL 9.4-12.3 nRBC (test code = 413) 0 0- 0 /100 WBC % Neutros (test code = 429) 88 % % Lymphs (test code = 430) 6 % % Monos (test code = 431) 4 % % Eos (test code = 432) 1 % % Baso (test code = 437) 0 % # Neutros (test code = 670) 11.38 1.56- 6.13 K/L H # Lymphs (test code = 414) 0.72 1.18- 3.74 K/L L # Monos (test code = 415) 0.53 0.24- 0.36 K/L H # Eos (test code = 416) 0.11 0.04- 0.36 K/L # Baso (test code = 417) 0.05 0.01- 0.08 K/L Immature Granulocytes-Relative 1 % 0-1 (test code = 2801) Lab Interpretation (test code = Abnormal 56926-5) [facility] W/PLT COUNT & AUTO [id number] 10:35:00 Test Item Value Reference Range Interpretation Comments WHITE BLOOD CELL COUNT (BEAKER) 12.9 K/ L 3.5-10.5 H (test code = 775) RED BLOOD CELL COUNT (BEAKER) 3.23 M/ L 3.93-5.22 L (test code = 761) HEMOGLOBIN (BEAKER) (test code = 9.3 GM/DL 11.2-15.7 L 410) HEMATOCRIT (BEAKER) (test code = 30.9 % 34.1-44.9 L 411) MEAN CORPUSCULAR VOLUME (BEAKER) 95.7 fL 79.4-94.8 H (test code = 753) MEAN CORPUSCULAR HEMOGLOBIN 28.8 pg 25.6-32.2 (BEAKER) (test code = 751) MEAN CORPUSCULAR HEMOGLOBIN CONC 30.1 GM/DL 32.2-35.5 L (BEAKER) (test code = 752) RED CELL DISTRIBUTION WIDTH 16.2 % 11.7-14.4 H (BEAKER) (test code = 412) PLATELET COUNT (BEAKER) (test 360 K/CU MM 150-450 code = 756) MEAN PLATELET VOLUME (BEAKER) 9.7 fL 9.4-12.3 (test code = 754) NUCLEATED RED BLOOD CELLS 0 /100 WBC 0-0 (BEAKER) (test code = 413) NEUTROPHILS RELATIVE PERCENT 88 % (BEAKER) (test code = 429) LYMPHOCYTES RELATIVE PERCENT 6 % (BEAKER) (test code = 430) MONOCYTES RELATIVE PERCENT 4 % (BEAKER) (test code = 431) EOSINOPHILS RELATIVE PERCENT 1 % (BEAKER) (test code = 432) BASOPHILS RELATIVE PERCENT 0 % (BEAKER) (test code = 437) NEUTROPHILS ABSOLUTE COUNT 11.38 K/ L 1.56-6.13 H (BEAKER) (test code = 670) LYMPHOCYTES ABSOLUTE COUNT 0.72 K/ L 1.18-3.74 L (BEAKER) (test code = 414) MONOCYTES ABSOLUTE COUNT (BEAKER) 0.53 K/ L 0.24-0.36 H (test code = 415) EOSINOPHILS ABSOLUTE COUNT 0.11 K/ L 0.04-0.36 (BEAKER) (test code = 416) BASOPHILS ABSOLUTE COUNT (BEAKER) 0.05 K/ L 0.01-0.08 (test code = 417) IMMATURE GRANULOCYTES-RELATIVE 1 % 0-1 PERCENT (BEAKER) (test code = 2801) POCT-GLUCOSE [id number] 10:33:00 Test Item Value Reference Range Interpretation Comments POC-GLUCOSE METER 94 mg/dL 70-110 : [facility] (BEAKER[facility] (test code = DAVID [place], 1538) [address]: Educational Sign Language Interpreter/Techni jackson ID = [id number] for AVE GARCIAKA Hemoglobin and [id number] 10:30:00 Test Item Value Reference Range Interpretation Comments Hemoglobin (test code = 9.3 11.2- 15.7 GM/DL L 786-4) Hematocrit (test code = 30.9 % 34.1-44.9 L 4544-3) TUSHAR (test code = TUSHAR) Educational Sign Language Interpreter ID - [id number] Lab Interpretation (test Abnormal code = 66808-4) [facility] CenterHEMOGLOBIN AND [id number] 10:30:00 Test Item Value Reference Range Interpretation Comments HEMOGLOBIN (BEAKER) (test code = 9.3 GM/DL 11.2-15.7 L 410) HEMATOCRIT (BEAKER) (test code = 30.9 % 34.1-44.9 L 411) Educational Sign Language Interpreter ID - 6000POCT-GLUCOSE [id number] 06:42:00 Test Item Value Reference Range Interpretation Comments POC-GLUCOSE METER 108 mg/dL 70-110 : TESTED A T [facility] 6720 (BEAKER) (test code = DAVID Parada [facility], 1538) [address]: Educational Sign Language Interpreter/Techni jackson ID = [id number] for KASSIE CELESTE POCT-GLUCOSE [id number] 00:26:00 Test Item Value Reference Range Interpretation Comments POC-GLUCOSE METER 84 mg/dL 70-110 : TESTED A T [facility] 6720 (BEAKER) (test code = [facility] Karma [facility], 1538) [address]: Educational Sign Language Interpreter/Techni jackson ID = [id number] for KASSIE STRICKLAND HEMOGLOBIN AND [id number] 00:09:00 Test Item Value Reference Range Interpretation Comments HEMOGLOBIN (BEAKER) (test code = 9.9 GM/DL 11.2-15.7 L 410) HEMATOCRIT (BEAKER) (test code = 32.3 % 34.1-44.9 L 411) Educational Sign Language Interpreter ID - [id number]-GLUCOSE [id number] 22:56:00 Test Item Value Reference Range Interpretation Comments POC-GLUCOSE METER 81 mg/dL 70-110 : TESTED A T [facility] 6720 (BEAKER) (test code = [facility] Karma [facility], 1538) [address]: Educational Sign Language Interpreter/Techni jackson ID = [id number] for AKI SOLIZ [id number] 20:55:00 Test Item Value Reference Range Interpretation Comments Ferritin (test code = 883.54 ng/mL 5-275 H 2276-4) TUSHAR (test code = TUSHAR) Educational Sign Language Interpreter ID - FSE Lab Interpretation (test Abnormal code = 93200-8) [facility] CenterVitamin B12 and [id number] 20:55:00 Test Item Value Reference Range Interpretation Comments Vitamin B12 (test code = 864 pg/mL 213-816 H 2132-9) Folate (test code = 2284-8) 6.20 ng/mL >=7.00 L TUSHAR (test code = TUSHAR) Educational Sign Language Interpreter ID - FSE Lab Interpretation (test Abnormal code = 36374-1) [facility] CenterFERRITIN2020-09-14 20:55:00 Test Item Value Reference Range Interpretation Comments FERRITIN (BEAKER) (test code = 883.54 ng/mL 5.00-275.00 H 361) Educational Sign Language Interpreter ID - FSEVITAMIN B12 AND [id number] 20:55:00 Test Item Value Reference Range Interpretation Comments VITAMIN B12 (BEAKER) (test code = 864 pg/mL 213-816 H 774) FOLATE (BEAKER) (test code = 362) 6.20 ng/mL >=7.00 L Educational Sign Language Interpreter ID - FSEHepatitis B surface [id number] 20:04:00 Test Item Value Reference Range Interpretation Comments HBsAg Screen (test code Nonreactive Nonreactive = 5195-3) TUSHAR (test code = TUSHAR) Specimen is considered negative for HBsAg. Lab Interpretation (test Normal code = 10200-9) [facility] CenterHEPATITIS B SURFACE [id number] 20:04:00 Test Item Value Reference Range Interpretation Comments HEPATITIS B SURFACE ANTIGEN (2) Nonreactive Nonreactive (BEAKER) (test code = 2585) Specimen is considered negative for HBsAg.Iron, TIBC, % sat. (without ferritin) 2020-03-08 19:50:00 Test Item Value Reference Range Interpretation Comments Iron (test code = 2498-4) 17.0 ug/dL 40-160 L TIBC (test code = 2500-7) 59 ug/dL 250-450 L Iron % Saturation (test 29 % 20-55 code = 2502-3) TUSHAR (test code = TUSHAR) Educational Sign Language Interpreter ID - FSE Lab Interpretation (test Abnormal code = 23428-8) [facility] CenterIRON, TIBC, % SAT. (WITHOUT FERRITIN)2020-03-08 19:50:00 Test Item Value Reference Range Interpretation Comments IRON (BEAKER) (test code = 547) 17.0 ug/dL 40.0-160.0 L TOTAL IRON BINDING CAPACITY 59 ug/dL 250-450 L (BEAKER) (test code = 769) IRON % SATURATION (2) (BEAKER) 29 % 20-55 (test code = 2590) Educational Sign Language Interpreter ID - FSEPOCT-GLUCOSE [id number] 16:27:00 Test Item Value Reference Range Interpretation Comments POC-GLUCOSE METER 90 mg/dL 70-110 : TESTED A T [facility] 6720 (BEAKER) (test code = DAVID [place], 1538) [address]: Educational Sign Language Interpreter/Techni jackson ID = [id number] for PRINCESS ERNIE HEMOGLOBIN AND [id number] 15:08:00 Test Item Value Reference Range Interpretation Comments HEMOGLOBIN (JO ANN) (test code = 9.5 GM/DL 11.2-15.7 L 410) HEMATOCRIT (JO ANN) (test code = 30.7 % 34.1-44.9 L 411) Educational Sign Language Interpreter ID - 6000Hemoglobin [id number] 12:47:00 Test Item Value Reference Range Interpretation Comments Hemoglobin A1C (test code = 4548-4) 5.1 % 4.3-6.1 Lab Interpretation (test code = Normal 74127-4) [facility] CenterHEMOGLOBIN [id number] 12:47:00 Test Item Value Reference Range Interpretation Comments HEMOGLOBIN A1C (JO ANN) (test code = 5.1 % 4.3-6.1 368) POCT-GLUCOSE [id number] 11:11:00 Test Item Value Reference Range Interpretation Comments POC-GLUCOSE METER 89 mg/dL 70-110 : TESTED A T [facility] 6720 (BEAKER) (test code = DAVID [place], 1538) [address]: Educational Sign Language Interpreter/Techni jackson ID = [id number] for PRINCESS ERNIE Prothrombin time/[id number] 10:55:00 Test Item Value Reference Range Interpretation Comments Protime (test code = 15.0 11.9- 14.2 H 5902-2) seconds INR (test code = 1.21 <=5.90 6301-6) TUSHAR (test code = TUSHAR) Effective 11/20/2018: PT Reference Range ChangeNew: 11.9-14.2 Previous: 11.7-14.7 RECOMMENDED COUMADIN/WARFARIN INR THERAPY RANGESSTANDARD DOSE: 2.0-3.0 Includes: PROPHYLAXIS for venous thrombosis, systemic embolization; TREATMENT for venous thrombosis and/or pulmonary embolus.HIGH RISK: Target INR is 2.5-3.5 for patients wiht mechanical heart valves. Lab Interpretation Abnormal (test code = 01789-3) [facility] CenterPROTHROMBIN TIME/[id number] 10:55:00 Test Item Value Reference Range Interpretation Comments PROTIME (BEAKER) (test code = 15.0 seconds 11.9-14.2 H 759) INR (BEAKER) (test code = 370) 1.21 <=5.90 Effective 11/20/2018: PT Reference Range ChangeNew: 11.9-14.2 Previous: 11.7- 14.7RECOMMENDED COUMADIN/WARFARIN INR THERAPY RANGESSTANDARD DOSE: 2.0-3.0 Includes: PROPHYLAXIS for venous thrombosis, systemic embolization; TREATMENT for venous thrombosis and/or pulmonary embolus.HIGH RISK: Target INR is2.5-3.5 for patients wiht mechanical heart valves.BASIC METABOLIC [id number] 10:53:00 Test Item Value Reference Range Interpretation Comments SODIUM (BEAKER) 130 meq/L 136-145 L (test code = 381) POTASSIUM (BEAKER) 5.5 meq/L 3.5-5.1 H (test code = 379) CHLORIDE (BEAKER) 99 meq/L 98-107 (test code = 382) CO2 (BEAKER) (test 25 meq/L 22-29 code = 355) BLOOD UREA NITROGEN 26 mg/dL 7-21 H (BEAKER) (test code = 354) CREATININE (BEAKER) 3.14 mg/dL 0.57-1.25 H (test code = 358) GLUCOSE RANDOM 102 mg/dL 70-105 (BEAKER) (test code = 652) CALCIUM (BEAKER) 8.0 mg/dL 8.4-10.2 L (test code = 697) EGFR (BEAKER) (test 15 mL/min/1.73 ESTIMA DEMETRIO GFR IS code = 1092) sq m NOT ACCURATE CREATININE CLEARANCE IN PREDICTING GLOMERULAR FILTRATION RATE . ESTIMATED GFR I S NOT APPLICABLE FOR DIALYSIS PATIEN TS. Educational Sign Language Interpreter ID - AAHAMIDSARS-CoV2/RT-PCR (Asymptomatic ONLY)2020-03-08 10:13:00 Test Item Value Reference Range Interpretation Comments SARS-COV2/RT-PCR Negative Not Detected, (test code = Negative, See 67479-6) external report for linked test SARS-COV-2 [facility] PERFORMING LAB (test code = 75587-3) TUSHAR (test code = Negative result for this TUSHAR) test determines that SARS-CoV-2 RNA was not present in the [...] of the Act. Fact Sheet for Healthcare Providers:https://www.TapZen/sites/default/f johnathon/product/documents/F act_Sheet_HC_Providers_L axo_ITCD-OuM-4.pdf Fact Sheet for Healthcare Patients:https://www.Alegría.ReCoTech/sites/default/fi les/product/documents/Fa ct_Sheet_Patients_Lyra_S ARS-CoV-2.pdf Performing Laboratory:[facility] [place] [address] [facility])2020-03-08 10:13:00 Test Item Value Reference Range Interpretation Comments SARS-COV2/RT-PCR (test Negative Not Detected, Negative, code = 7077017) See external report for linked test SARS-COV-[address] [facility] (test code = 4798021) Negative result for this test determines that SARS-CoV-2 RNA was not present in the specimen above the Limit of Detection (LOD). However, Negative results do not preclude SARS-CoV-2 infection and should not be used as the sole basis for treatment or patient management decisions. Negative results mustbe combined with clinical observations, patient history, and epidemiological information. A false negative result may occur if a specimen is improperly collected, transported or handled. A false negative result should be considered if patient's recent exposures or clinical presentation indicate that COVID-19 (SARS-CoV-2) is likely and diagnostic tests for other causes of illness are negative. Re-testing should be considered in cases of suspected false negatives.The limit of detection for this assay is 800 copies/mL.This SARS CoV-2 test is a real-time RT-PCR test intended for the qualitative detection of nucleic acid from SARS-CoV-2 in a nasopharyngeal swab specimen collected from individuals susp ected of COVID-19 by their healthcare provider.This test has not been Food and Drug [...] is revoked under Section 564(g) of the Act.Fact Sheet for Healthcare Providers:https://www.quidel.com/sites/default/files/product/documents/Fact_Shee w_QQ_Ahpcszvky_Oexm_FTKV-YiW-6.pdfFact Sheet for Healthcare Patients:https://www.MongoSluiceidel.com/sites/default/files/product/ documents/Yrmi_Nppiy_Cmnawlov_Xyiw_OJRD-ZmN-3.pdfPerforming Laboratory:[facility], [place] [address]Pqdvjej function [id number] 10:06:00 Test Item Value Reference Range Interpretation Comments Protein, Total (test code 6.0 6.0- 8.3 gm/dL = 2885-2) Albumin (test code = 2.2 g/dL 3.5-5 L 64771-8) Total Bilirubin (test code 0.5 mg/dL 0.2-1.2 = 1975-2) Bilirubin, Direct (test 0.3 mg/dL 0.1-0.5 code = 1968-7) Alkaline Phosphatase (test 87 U/L 40-150 code = 6768-6) AST (test code = 1920-8) 12 U/L 5-34 ALT (test code = 1742-6) 6 U/L 6-55 TUSHAR (test code = TUSHAR) Educational Sign Language Interpreter ID - [id number] Lab Interpretation (test Abnormal code = 42526-2) [facility] [id number] 10:06:00 Test Item Value Reference Range Interpretation Comments TOTAL PROTEIN (BEAKER) (test code = 6.0 gm/dL 6.0-8.3 770) ALBUMIN (BEAKER) (test code = 1145) 2.2 g/dL 3.5-5.0 L BILIRUBIN TOTAL (BEAKER) (test code 0.5 mg/dL 0.2-1.2 = 377) BILIRUBIN DIRECT (BEAKER) (test 0.3 mg/dL 0.1-0.5 code = 706) ALKALINE PHOSPHATASE (BEAKER) (test 87 U/L 40-150 code = 346) AST (SGOT) (BEAKER) (test code = 12 U/L 5-34 353) ALT (SGPT) (BEAKER) (test code = 6 U/L 6-55 347) Educational Sign Language Interpreter ID - AAHAMIDReticulocyte [id number] 08:03:00 Test Item Value Reference Range Interpretation Comments % Retic (test code = 3.3 % 0.5-1.7 H 47872-7) TUSHAR (test code = TUSHAR) Educational Sign Language Interpreter ID - [id number] Lab Interpretation (test Abnormal code = 82059-1) [facility] CenterRETICULOCYTE [id number] 08:03:00 Test Item Value Reference Range Interpretation Comments RETICULOCYTE COUNT PCT (BEAKER) (test 3.3 % 0.5-1.7 H code = 575) Educational Sign Language Interpreter ID - [id number] W/PLT COUNT & AUTO [id number] 06:37:00 Test Item Value Reference Range Interpretation Comments WHITE BLOOD CELL COUNT (BEAKER) 11.7 K/ L 3.5-10.5 H (test code = 775) RED BLOOD CELL COUNT (BEAKER) 3.55 M/ L 3.93-5.22 L (test code = 761) HEMOGLOBIN (BEAKER) (test code = 10.1 GM/DL 11.2-15.7 L 410) HEMATOCRIT (BEAKER) (test code = 34.0 % 34.1-44.9 L 411) MEAN CORPUSCULAR VOLUME (BEAKER) 95.8 fL 79.4-94.8 H (test code = 753) MEAN CORPUSCULAR HEMOGLOBIN 28.5 pg 25.6-32.2 (BEAKER) (test code = 751) MEAN CORPUSCULAR HEMOGLOBIN CONC 29.7 GM/DL 32.2-35.5 L (BEAKER) (test code = 752) RED CELL DISTRIBUTION WIDTH 16.1 % 11.7-14.4 H (BEAKER) (test code = 412) PLATELET COUNT (BEAKER) (test 365 K/CU MM 150-450 code = 756) MEAN PLATELET VOLUME (BEAKER) 9.6 fL 9.4-12.3 (test code = 754) NUCLEATED RED BLOOD CELLS 0 /100 WBC 0-0 (BEAKER) (test code = 413) NEUTROPHILS RELATIVE PERCENT 87 % (BEAKER) (test code = 429) LYMPHOCYTES RELATIVE PERCENT 7 % (BEAKER) (test code = 430) MONOCYTES RELATIVE PERCENT 4 % (BEAKER) (test code = 431) EOSINOPHILS RELATIVE PERCENT 1 % (BEAKER) (test code = 432) BASOPHILS RELATIVE PERCENT 1 % (BEAKER) (test code = 437) NEUTROPHILS ABSOLUTE COUNT 10.25 K/ L 1.56-6.13 H (BEAKER) (test code = 670) LYMPHOCYTES ABSOLUTE COUNT 0.79 K/ L 1.18-3.74 L (BEAKER) (test code = 414) MONOCYTES ABSOLUTE COUNT (BEAKER) 0.44 K/ L 0.24-0.36 H (test code = 415) EOSINOPHILS ABSOLUTE COUNT 0.09 K/ L 0.04-0.36 (BEAKER) (test code = 416) BASOPHILS ABSOLUTE COUNT (BEAKER) 0.07 K/ L 0.01-0.08 (test code = 417) IMMATURE GRANULOCYTES-RELATIVE 1 % 0-1 PERCENT ([facility]) (test code = 2801) POCT-GLUCOSE [id number] 05:47:00 Test Item Value Reference Range Interpretation Comments POC-GLUCOSE METER 100 mg/dL 70-110 : TESTED A T [place] [address] ([facility]) (test code = [facility] Karma [facility], 1538) [address]: Educational Sign Language Interpreter/Techni jackson ID = [id number] for KAILA BRADSHAW POCT-GLUCOSE [id number] 16:49:00 Test Item Value Reference Range Interpretation Comments POC-GLUCOSE METER 150 mg/dL 70-110 H TESTED AT [place] [address] ([facility]) (test code = [facility] 1538) 8[address] POCT-GLUCOSE [id number] 11:40:00 Test Item Value Reference Range Interpretation Comments POC-GLUCOSE METER 125 mg/dL 70-110 H TESTED AT [place] [address] ([facility]) (test code = [facility] 1538) 70257 POCT-GLUCOSE [id number] 07:36:00 Test Item Value Reference Range Interpretation Comments POC-GLUCOSE METER 102 mg/dL 70-110 TESTED AT [place] [address] ([facility]) (test code = [facility] 1538) 56843 POCT-GLUCOSE [id number] 21:09:00 Test Item Value Reference Range Interpretation Comments POC-GLUCOSE METER 165 mg/dL 70-110 H TESTED AT [place] [address] ([facility]) (test code = [facility] 1538) 36920 POCT-GLUCOSE [id number] 16:49:00 Test Item Value Reference Range Interpretation Comments POC-GLUCOSE METER 124 mg/dL 70-110 H TESTED AT [place] [address] ([facility]) (test code = [facility] 1538) 99108 POCT-GLUCOSE [id number] 11:38:00 Test Item Value Reference Range Interpretation Comments POC-GLUCOSE METER 169 mg/dL 70-110 H TESTED AT [place] [address] ([facility]) (test code = [facility] 1538) 03598 POCT-GLUCOSE [id number] 07:40:00 Test Item Value Reference Range Interpretation Comments POC-GLUCOSE METER 191 mg/dL 70-110 H TESTED AT [place] [address] ([facility]) (test code = [place] 1538) [address] POCT-GLUCOSE [id number] 21:26:00 Test Item Value Reference Range Interpretation Comments POC-GLUCOSE METER 173 mg/dL 70-110 H TESTED AT [place] [address] ([facility]) (test code = [place] Par[place] 1538) [address] POCT-GLUCOSE [id number] 17:45:00 Test Item Value Reference Range Interpretation Comments POC-GLUCOSE METER 155 mg/dL 70-110 H TESTED AT [place] [address] ([facility]) (test code = DAV[place] Par[place] 1538) [address] POCT-GLUCOSE [id number] 12:58:00 Test Item Value Reference Range Interpretation Comments POC-GLUCOSE METER 181 mg/dL 70-110 H TESTED AT [place] [address] ([facility]) (test code = DAV[place] Parada [place] 1538) 18[address] POCT-GLUCOSE [id number] 12:32:00 Test Item Value Reference Range Interpretation Comments POC-GLUCOSE METER 177 mg/dL 70-110 H TESTED AT [place] [address] ([facility]) (test code = DAV[place] Parada [place] 1538) [address] POCT-GLUCOSE [id number] 08:25:00 Test Item Value Reference Range Interpretation Comments POC-GLUCOSE METER 125 mg/dL 70-110 H TESTED AT [place] [address] ([facility]) (test code = DAV[place] Parada [place] 1538) 39274 POCT-GLUCOSE [id number] 20:55:00 Test Item Value Reference Range Interpretation Comments POC-GLUCOSE METER 131 mg/dL 70-110 H TESTED AT [place] [address] ([facility]) (test code = DAVID Par[place] 1538) 76085 POCT-GLUCOSE [id number] 20:42:00 Test Item Value Reference Range Interpretation Comments POC-GLUCOSE METER 121 mg/dL 70-110 H TESTED AT [place] [address] ([facility]) (test code = DAV[place] Par[place] 1538) 23827 POCT-GLUCOSE [id number] 17:10:00 Test Item Value Reference Range Interpretation Comments POC-GLUCOSE METER 116 mg/dL 70-110 H TESTED AT [place] [address] ([facility]) (test code = DAVID Parada [facility] 1538) 86593 POCT-GLUCOSE [id number] 11:45:00 Test Item Value Reference Range Interpretation Comments POC-GLUCOSE METER 153 mg/dL 70-110 H TESTED AT [place] [address] ([facility]) (test code = DAVID Parada [facility] 1538) 87927 POCT-GLUCOSE [id number] 08:42:00 Test Item Value Reference Range Interpretation Comments POC-GLUCOSE METER 117 mg/dL 70-110 H TESTED AT [place] [address] ([facility]) (test code = DAVID Parada [facility] 1538) 27513 POCT-GLUCOSE [id number] 21:05:00 Test Item Value Reference Range Interpretation Comments POC-GLUCOSE METER 195 mg/dL 70-110 H TESTED AT [place] [address] ([facility]) (test code = DAVID Parada [facility] 1538) 92317 POCT-GLUCOSE [id number] 17:04:00 Test Item Value Reference Range Interpretation Comments POC-GLUCOSE METER 143 mg/dL 70-110 H TESTED AT [place] [address] ([facility]) (test code = DAVID Parada [facility] 1538) 88558 POCT-GLUCOSE [id number] 13:32:00 Test Item Value Reference Range Interpretation Comments POC-GLUCOSE METER 190 mg/dL 70-110 H TESTED AT [place] [address] ([facility]) (test code = DAVID Parada [facility] 1538) 48656 POCT-GLUCOSE [id number] 12:46:00 Test Item Value Reference Range Interpretation Comments POC-GLUCOSE METER 175 mg/dL 70-110 H TESTED AT [place] [address] ([facility]) (test code = DAVID Parada [facility] 1538) 77006 POCT-GLUCOSE [id number] 09:35:00 Test Item Value Reference Range Interpretation Comments POC-GLUCOSE METER 206 mg/dL 70-110 H TESTED AT [place] [address] ([facility]) (test code = DAVID Parada [facility] 1538) 44643 POCT-GLUCOSE [id number] 08:01:00 Test Item Value Reference Range Interpretation Comments POC-GLUCOSE METER 63 mg/dL 70-110 L Notified R Layton RIVAS/TESTED AT [facility]) (test code = [address]) [facility] [address] POCT-GLUCOSE [id number] 20:42:00 Test Item Value Reference Range Interpretation Comments POC-GLUCOSE METER 160 mg/dL 70-110 H TESTED AT [place] [id number] [facility] (test code = DAVID Parada [facility] 1538) 86350 POCT-GLUCOSE [id number] 16:48:00 Test Item Value Reference Range Interpretation Comments POC-GLUCOSE METER 180 mg/dL 70-110 H TEST[facility] AT [place] [address] [facility] (test code = DAVID Parada [facility] 1538) 61199 POCT-GLUCOSE [id number] 11:45:00 Test Item Value Reference Range Interpretation Comments POC-GLUCOSE METER 176 mg/dL 70-110 H TESTED AT [place] [address] [facility] (test code = DAVID Parada [facility] 1538) 11363 POCT-GLUCOSE [id number] 08:12:00 Test Item Value Reference Range Interpretation Comments POC-GLUCOSE METER 89 mg/dL 70-110 TESTED AT [place] [address] ([facility]) (test code = DAVID Parada [facility] [address] 1538) BASIC METABOLIC [id number] 05:06:00 Test Item Value Reference Range Interpretation [...] NOT APPLICABLE FOR DIALYSIS PATIEN TS. POCT-GLUCOSE [id number] 21:04:00 Test Item Value Reference Range Interpretation Comments POC-GLUCOSE METER 115 mg/dL 70-110 H TESTED AT [place] [address] (BEAKER) (test code = DAVID Par[place] 1538) [address] URINALYSIS W/ [id number] 19:25:00 Test Item Value Reference Range Interpretation [...] 516) SOURCE(BEAKER) (test code = 2795) POCT-GLUCOSE [id number] 17:51:00 Test Item Value Reference Range Interpretation Comments POC-GLUCOSE METER 176 mg/dL 70-[address] [facility] 6720 (BEAKER) (test code = DAVID Parada [place] 1538) 67018 POCT-GLUCOSE [id number] 12:29:00 Test Item Value Reference Range Interpretation Comments POC-GLUCOSE METER 142 mg/dL 70-110 H TESTED AT [place] [address] (BEAKER) (test code = DAVID Parada [place] 1538) 9[address]14 POCT-GLUCOSE [id number] 08:01:00 Test Item Value Reference Range Interpretation Comments POC-GLUCOSE METER 103 mg/dL 70-110 TESTED AT [place] [address] ([facility]) (test code = DAVID Parada [facility] 1538) 84956 POCT-GLUCOSE [id number] 20:52:00 Test Item Value Reference Range Interpretation Comments POC-GLUCOSE METER 141 mg/dL 70-110 H TESTED AT [place] [address] ([facility]) (test code = DAVID Parada [place] 1538) 39273 POCT-GLUCOSE [id number] 17:25:00 Test Item Value Reference Range Interpretation Comments POC-GLUCOSE METER 189 mg/dL 70-110 H TESTED AT [place] [address] ([facility]) (test code = DAVID Parada [facility] 1538) 28867 POCT-GLUCOSE [id number] 12:42:00 Test Item Value Reference Range Interpretation Comments POC-GLUCOSE METER 169 mg/dL 70-110 H TESTED AT [place] [address] ([facility]) (test code = DAVID Parada [facility] 1538) 53276 POCT-GLUCOSE [id number] 08:12:00 Test Item Value Reference Range Interpretation Comments POC-GLUCOSE METER 140 mg/dL 70-110 H TESTED AT [place] [address] ([facility]) (test code = DAVID Parada [facility] 1538) 94984 POCT-GLUCOSE [id number] 20:30:00 Test Item Value Reference Range Interpretation Comments POC-GLUCOSE METER 165 mg/dL 70-110 H TESTED AT [place] [address] ([facility]) (test code = DAVID Parada [facility] 1538) 96540 POCT-GLUCOSE [id number] 16:56:00 Test Item Value Reference Range Interpretation Comments POC-GLUCOSE METER 84 mg/dL 70-110 TESTED AT [place] [address] ([facility]) (test code = DAVID Parada [facility] [address] 1538) URINE [id number] 15:41:00 Test Item Value Reference Range Interpretation Comments CULTURE ([facility]) (test 30-39,000 col/mL skin code = 1095) marcie POCT-GLUCOSE [id number] 11:27:00 Test Item Value Reference Range Interpretation Comments POC-GLUCOSE METER 127 mg/dL 70-110 H TESTED AT [place] [address] ([facility]) (test code = DAVID Parada [facility] 1538) 25397 POCT-GLUCOSE [id number] 08:18:00 Test Item Value Reference Range Interpretation Comments POC-GLUCOSE METER 117 mg/dL 70-110 H TESTED AT [place] [address] ([facility]) (test code = DAVID Parada [facility] 1538) 37689 POCT-GLUCOSE [id number] 20:16:00 Test Item Value Reference Range Interpretation Comments POC-GLUCOSE METER 111 mg/dL 70-110 H TESTED AT [place] [address] ([facility]) (test code = [facility] Karma [facility] 1538) 12913 POCT-GLUCOSE [id number] 17:19:00 Test Item Value Reference Range Interpretation Comments POC-GLUCOSE METER 148 mg/dL 70-110 H TESTED AT [place] [address] ([facility]) (test code = [facility] Kar[facility] 1538) 86207 POCT-GLUCOSE [id number] 13:27:00 Test Item Value Reference Range Interpretation Comments POC-GLUCOSE METER 245 mg/dL 70-110 H TESTED AT [place] [address] ([facility]) (test code = [facility] 1538) 46861 POCT-GLUCOSE [id number] 11:50:00 Test Item Value Reference Range Interpretation Comments POC-GLUCOSE METER 234 mg/dL 70-110 H TESTED AT [place] [address] ([facility]) (test code = [facility] Kar[facility] 1538) 42703 HEMOGLOBIN [id number] 08:59:00 Test Item Value Reference Range Interpretation Comments HEMOGLOBIN A1C ([facility]) (test code = 11.8 % 4.3-6.1 H 368) POCT-GLUCOSE [id number] 07:40:00 Test Item Value Reference Range Interpretation Comments POC-GLUCOSE METER 181 mg/dL 70-110 H TESTED AT [place] [address] ([facility]) (test code = [facility] 1538) 02147 LIPID [id number] 06:05:00 Test Item Value Reference Range Interpretation Comments TRIGLYCERIDES ([facility]) (test code = 206 mg/dL 540) CHOLESTEROL ([facility]) (test code = 230 mg/dL 631) HDL CHOLESTEROL ([facility]) (test code 36 mg/dL = 976) LDL CHOLESTEROL CALCULATED ([facility]) 153 mg/dL (test code = 633) Triglyceride Reference Range: Low Risk <150 Borderline 150-199 High Risk 200-499 Very High Risk >=500Cholesterol Reference Range: Low Risk <200 Borderline 200-239 High Risk >240HDL Cholesterol Reference Range: Low Risk >=60 High Risk <40LDL Cholesterol Reference Range: Optimal <100 Near Optimal 100-129 Borderline 130-159 High 160-189 Very High >=190 FastingBASIC METABOLIC [id number] 06:05:00 Test Item Value Reference Range Interpretation [...] FOR DIALYSIS PATIEN TS. FastingTSH/FREE T4 IF [id number] 06:05:00 Test Item Value Reference Range Interpretation Comments THYROID STIMULATING HORMONE 2.87 uIU/mL 0.35-4.94 (BEAKER) (test code = 772) CBC W/PLT COUNT & AUTO [id number] 05:29:00 Test Item Value Reference Range Interpretation [...] PERCENT (BEAKER) (test code = 2801) POCT-GLUCOSE [id number] 23:44:00 Test Item Value Reference Range Interpretation Comments POC-GLUCOSE METER 169 mg/dL 70-[address] [facility] 6720 (BEAKER) (test code = [place] 1538) [address] URINALYSIS W/ [id number] 23:03:00 Test Item Value Reference Range Interpretation [...] code = 514) SOURCE(BEAKER) (test code = 5627)
[2020-04-27] MEDS ORDERED: VANCOMYCIN/NS 1 gm 1 GM/250 ML BAG IV ONE (10:30)
[2020-04-27 11:04] LABS: Absolute Lymphocytes (CBC) 0.5 K/uL (0.7-4.9); Basophils % 0.1 % (0-1.3); Lymphocytes % 3.4 % (15.3-44.8); MPV 8.5 fL (7.6-11.3); RBC Red Blood Cell Count 3.15 M/uL (3.86-4.86)
[2020-04-27] MEDS ORDERED: PIPER/TAZO/NS 3.375gm 3.375 GM/100 ML BAG ONE (11:04)
[2020-04-27 11:08] LABS: Protime INR 1.16
[2020-04-27 11:22] LABS: ALT/SGPT 7 U/L (12-78); AST/SGOT 9 U/L (15-37); Albumin 1.2 g/dL (3.4-5.0); Alkaline Phosphatase 135 U/L (45-117); BUN Blood Urea Nitrogen 20 mg/dL (7-18); Bicarbonate 26 mmol/L (21-32); Bilirubin Direct 0.2 mg/dL (0-0.2); Bilirubin Total 0.4 mg/dL (0.2-1.0); Glucose Level 85 mg/dL (74-106); Magnesium 1.9 mg/dL (1.8-2.4); Potassium 3.1 mmol/L (3.5-5.1); Protein, Total 6.3 g/dL (6.4-8.2); Sodium Level 138 mmol/L (136-145); Troponin (Emerg Dept Use Only) < 0.02 ng/mL (0.0-0.045)
--- NOTE | 2020-04-27 11:56 | RAD REPORT ---
EXAM DESCRIPTION: Gauri Single View04/27/2020 11:35 am CLINICAL HISTORY: Shortness of breath COMPARISON: February 2020 FINDINGS: Small bilateral pleural effusions with basilar atelectasis The upper lobes appear clear The heart is mildly to moderately enlarged. A central venous catheter is present.
--- NOTE | 2020-04-27 12:08 | EDPHYS ---
Physician Documentation [facility] Name: Fifi Salamanca Age: 70 yrs Sex: Female : 1950 Arrival Date: 04/27/2020 Time: 09:56 Bed 18 Private MD: ED Physician Diego Chris HPI: 04/27 10:15 This 70 yrs old Female presents to ER via Stretcher with complaints of Wound cp Check. 10:15 The patient presents with cellulitis of the buttocks and right leg. cp 10:15 Associated signs and symptoms: Pertinent positives: discharge, drainage, Pertinent cp negatives: fever. Patient referred to ED by DR Sibley from wound care for worsening decubitus ulcer and right below the knee amputation site. Historical: - Allergies: 10:00 Aspirin; aa5 - PMHx: 10:00 CVA; Diabetes - IDDM; ESRD; High Cholesterol; Hypertension; Myocardial infarction; aa5 - PSHx: 10:00 R BKA; PEG tube; Dialysis catheter to right upper chest; aa5 - Immunization history:: Adult Immunizations unknown. - Social history:: Smoking status: Patient denies any tobacco usage or history of. ROS: 10:20 Constitutional: Negative for fever. cp 10:20 Unable to obtain ROS due to patient's baseline is non-verbal. cp Exam: 10:25 Head/Face: Normocephalic, atraumatic. cp 10:25 Constitutional: The patient appears in no acute distress, alert, awake, non-diaphoretic, well developed. 10:25 Eyes: Periorbital structures: appear normal, Pupils: equal, round, and reactive to cp light and accomodation, Conjunctiva: normal, no exudate, no injection, Sclera: no appreciated abnormality, Lids and lashes: appear normal, bilaterally. 10:25 ENT: External ear(s): are unremarkable, Nose: is normal, Mouth: Lips: dry, Oral mucosa: dry, Posterior pharynx: Airway: no evidence of obstruction, patent. 10:25 Neck: ROM/movement: is normal, is supple, no nuchal rigidity. 10:25 Chest/axilla: Inspection: normal, Palpation: is normal, no crepitus, no tenderness. 10:25 Cardiovascular: Rate: normal, Rhythm: regular, Edema: is not appreciated, JVD: is not appreciated. 10:25 Respiratory: the patient does not display signs of respiratory distress, Respirations: labored breathing, is not present, intercostal retractions, are absent, shallow respirations, are not present, Breath sounds: decreased breath sounds, are not appreciated, stridor, is not appreciated. 10:25 Abdomen/GI: Inspection: gastric tube noted LUQ, Bowel sounds: active, all quadrants, Palpation: abdomen is soft and non-tender, in all quadrants, rebound tenderness, is not appreciated, involuntary guarding, is not appreciated. 10:25 Musculoskeletal/extremity: Extremities: noted in the right below knee amputation: erythema, pain, tenderness, drainage noted from amputation site. 10:25 Skin: decubitus ulcer noted coccyx area with moderate purulent drainage. 10:30 ECG was reviewed by the Attending Physician. cp Vital Signs: 09:56 BP 107 / 53; Pulse 66; Resp 18 S; Temp 97.2(TE); Pulse Ox 96% on R/A; aa5 11:30 BP 101 / 49; Pulse 64; Resp 12; Pulse Ox 100% ; ph 12:28 BP 100 / 49; Pulse 65; Resp 15; Pulse Ox 100% on R/A; ph 12:30 BP 52 / 30; Pulse 82; Resp 6; Pulse Ox 88% on R/A; ph 12:45 BP 68 / 39; Pulse 81; Resp 10; Pulse Ox 90% on 4 lpm NC; ph 13:00 BP 108 / 47; Pulse 73; Resp 12; Pulse Ox 100% on 4 lpm NC; ph 14:22 BP 82 / 45; Pulse 77; Resp 12; Pulse Ox 98% on 2 lpm NC; ph 14:39 BP 102 / 48; Pulse 73; Resp 14; Temp 97.0; Pulse Ox 100% on 2 lpm NC; ph 12:30 ERP notified of vitals, pt placed on NC at 4L ph Procedures: 14:45 Central Line: the site was prepped with Betadine, in sterile fashion, a triple lumen cp catheter was inserted, in the left femoral vein, in 2 attempts. placement was verified, by blood return, the site was dressed with Tegaderm, using sterile technique, the patient tolerated the procedure, well. MDM: 09:57 Patient medically screened. rn 12:05 Data reviewed: vital signs, nurses notes, lab test result(s), EKG, radiologic studies, cp plain films. Physician consultation: Tulio Liza was contacted at 12:06, regarding admission, to the medical/surgical unit. patient's condition, will consult DR Sibley for evaluation of decubitus ulcer and BKA site wound. 04/27 10:13 Order name: Glucose, Ancillary Testing; Complete Time: 11:29 EDMS 04/27 10:15 Order name: Wound Culture cp 04/27 10:15 Order name: Wound Culture: right lower extremity amputation site cp 04/27 10:15 Order name: Basic Metabolic Panel; Complete Time: 11:29 cp 04/27 11:56 Interpretation: Normal except: K 3.1; BUN 20; CRE 2.65; GFR 18; CA 8.0. 04/27 10:15 Order name: CBC with Diff cp 04/27 11:31 Interpretation: Normal except: WBC 15.6; RBC 3.15; HGB 8.5; HCT 27.0; MCV 85.8; MCH cp 26.8; MCHC 31.2; RDW 19.2; MARTY% 94.5; LYM% 3.4; MN% 2.0; NEUT A 14.7; LYMA 0.5. 04/27 10:15 Order name: LFT's; Complete Time: 11:29 04/27 11:31 Interpretation: Normal except: AST 9; ALT 7; ALK 135; TP 6.3; ALB 1.2; GLOB 5.1; A/G cp 0.2. 04/27 10:15 Order name: Magnesium; Complete Time: 11:29 cp 04/27 10:15 Order name: PT-INR; Complete Time: 11:29 cp 04/27 10:15 Order name: Troponin (emerg Dept Use Only); Complete Time: 11:29 cp 04/27 11:31 Interpretation: Within normal limits: TROPED < 0.02. cp 04/27 10:15 Order name: Ptt, Activated; Complete Time: 11:29 cp 04/27 10:15 Order name: Blood Culture Adult (2) cp 04/27 10:15 Order name: Lactate; Complete Time: 11:29 cp 04/27 10:15 Order name: Procalcitonin; Complete Time: 11:55 cp 04/27 11:55 Interpretation: Abnormal: Procalcitonin 1.11. cp 04/27 12:12 Order name: Manual Differential EDMS 04/27 10:15 Order name: XRAY Chest (1 view); Complete Time: 12:04 cp 04/27 10:15 Order name: EKG; Complete Time: 10:16 cp 04/27 10:15 Order name: Cardiac monitoring; Complete Time: 10:17 04/27 10:15 Order name: EKG - Nurse/Tech; Complete Time: 10:23 04/27 10:15 Order name: IV Saline Lock; Complete Time: 11:30 04/27 10:15 Order name: Labs collected and sent; Complete Time: 11: 04/27 10:15 Order name: O2 Per Protocol; Complete Time: 10: 04/27 10:15 Order name: O2 Sat Monitoring; Complete Time: 10:17 04/27 12:43 Order name: Type And Screen 04/27 12:44 Order name: Type and Screen EDMS EC:30 Rate is 66 beats/min. Rhythm is regular. QRS interval is prolonged at 108 msec. QT cp interval is prolonged at 456 msec. T waves are Inverted in lead aVL. Interpreted by me. Reviewed by me. Administered Medications: 11:45 Drug: Zosyn 3.375 grams Route: IVPB; Infused Over: 60 mins; Site: left antecubital; zb 12:28 Drug: vancoMYCIN 1 grams Route: IVPB; Infused Over: 2 hrs; Site: left antecubital; ph 12:40 Drug: NS 0.9% 500 ml {Note: administered w/ pressure bag.} Route: IV; Rate: bolus; ph Site: left antecubital; 12:58 Follow up: Response: No adverse reaction; Blood pressure is elevated; IV Status: ph Completed infusion; IV Intake: 500ml 14:00 Drug: Potassium Chloride 10 mEq Route: IV; Rate: calculated rate; Site: left ph antecubital; 14:21 Drug: NS 0.9% 250 ml Route: IV; Rate: bolus; Site: left antecubital; ph 14:38 Follow up: Response: No adverse reaction; IV Status: Completed infusion; IV Intake: ph 250ml Disposition: 15:05 Chart complete. cp 15:27 Co-signature as Attending Physician, Diego Chris MD. rn Disposition: 04/27/20 12:08 Hospitalization ordered by Tulio De Jesus for Inpatient Admission. Preliminary diagnosis are Cellulitis of buttock, Cellulitis of right lower limb. - Bed requested for Telemetry/MedSurg (Inpatient). - Status is Inpatient Admission. ph - Condition is Stable. - Problem is an ongoing problem. - Symptoms have improved. Signatures: Dispatcher [employer] EDMS Diego Chris MD MD rn Calderon, Audri, RN RN Oksana Almanza RN RN ph Keshav Billy PA PA Gi Lanier RN RN zb Corrections: (The following items were deleted from the chart) 11:31 11:30 Normal except: WBC 15.6; RBC 3.15; HGB 8.5; HCT 27.0; MCV 85.8; MCH 26.8; MCHC cp 31.2. cp 11:31 11:31 Normal except: AST 9; ALT 7; ALK 135; TP 6.3; ALB 1.2; GLOB 5.1. cp cp 11:56 11:31 Normal except: K 3.1; BUN 20; CRE 2.65; GFR 18. cp cp 15:00 12:08 Hospitalization Ordered by Tulio De Jesus for Inpatient Admission. Preliminary ph diagnosis is Cellulitis of buttock; Cellulitis of right lower limb. Bed requested for Telemetry/MedSurg (Inpatient). Status is Inpatient Admission. Condition is Stable. Problem is an ongoing problem. Symptoms have improved. cp
--- NOTE | 2020-04-27 12:08 | ER ---
Nurse's Notes [facility] Name: Fifi Salamanca Age: 70 yrs Sex: Female : 1950 Arrival Date: 04/27/2020 Time: 09:56 Bed 18 Private MD: Diagnosis: Cellulitis of buttock;Cellulitis of right lower limb Presentation: 04/27 09:56 Chief complaint: [facility] here [facility] by Dr. Sibley for deteriorating aa5 sacral wound with bone exposure. Wound care nurse reports multiple wounds. Pt's daughter reports pt had R BKA back in February 2020 and reports incision wound has not healed. Pt's daughter also reports lethargy x 2-3 days ago. Reports pt took lorazepam and Tylenol with codeine this morning, pt's daughter states "she takes the lorazepam and Tylenol with codeine only when she has to have dialysis or when she has a doctor's appointment". 09:56 Coronavirus screen: At this time, the client does not indicate any symptoms associated aa5 with coronavirus-19. Ebola Screen: Patient negative for fever greater than or equal to 101.5 degrees Fahrenheit, and additional compatible Ebola Virus Disease symptoms. Initial Sepsis Screen: Does the patient meet any 2 criteria? No. Patient's initial sepsis screen is negative. Does the patient have a suspected source of infection? Yes:. Risk Assessment: Do you want to hurt yourself or someone else? Unable to obtain. Onset of symptoms was 2019. Transition of care: W[facility] Care Center. 09:56 Acuity: ROBERT 2 aa5 09:56 Method Of Arrival: Stretcher aaNyla Historical: - Allergies: 10:00 Aspirin; aa5 - PMHx: 10:00 CVA; Diabetes - IDDM; ESRD; High Cholesterol; Hypertension; Myocardial infarction; aa5 - PSHx: 10:00 R BKA; PEG tube; Dialysis catheter to right upper chest; aa5 - Immunization history:: Adult Immunizations unknown. - Social history:: Smoking status: Patient denies any tobacco usage or history of. Screenin:05 Abuse screen: Denies threats or abuse. Denies injuries from another. Nutritional ph screening: No deficits noted. Tuberculosis screening: No symptoms or risk factors identified. Fall Risk None identified. Assessment: 10:30 General: Appears in no apparent distress. emaciated, Behavior is listless, quiet, ph Denies fever. Pain: Unable to use pain scale. Patient is disoriented. Neuro: Level of Consciousness is awake, obeys commands, lethargic, listless, Oriented to person, place. Cardiovascular: Capillary refill < 3 seconds Patient's skin is warm and dry. Respiratory: Airway is patent Respiratory effort is even, unlabored. GI: Abdomen is flat, non-distended, PEG tube in place, clamped. Derm: Skin is fragile, is thin, with poor turgor Skin is normal, Skin temperature is warm Wound noted R BKA, wound noted to surgical site w/ purulent drainage noted. Derm: Wound noted heel of left foot Wound is diabetic ulcer grade 4, black and hardened w/ moderate serosanguinous/green drainage. Derm: Decubitus located on right posterior knee approximately 7.6 cm to 20 cm is unstageable. is draining large amount green purulent. Derm: Decubitus located on sacrum approximately 7.6 cm to 20 cm is stage IV undermining present is draining large amount malodorous, green purulent. Derm: Decubitus located on right elbow(s) approximately 1.5 cm to 2.5 cm bed has granulation present is draining none noted. Derm: Decubitus located on right buttock approximately 1.5 cm to 2.5 cm bed has granulation present. Derm: Decubitus located on mid back approximately 2.6 cm to 7.5 cm bed has granulation present. Musculoskeletal: Range of motion: limited in R side r/t previous CVA. 11:30 Reassessment: Patient appears in no apparent distress at this time. Patient and/or ph family updated on plan of care and expected duration. Pain level reassessed. Pt awake but quiet, family at bedside, awaiting lab results. 12:22 Reassessment: Patient appears in no apparent distress at this time. No changes from ph previously documented assessment. Patient and/or family updated on plan of care and expected duration. Pain level reassessed. 12:30 Reassessment: While at bedside to check on pt Bp noted to have dropped to 52/30, Spo2 ph dropped to 89% RA, pt also became less responsive to family, ERP notified, GAGAN Beltran and Dr Chris at bedside, VO for 500 mL bolus of NS given. Daughter states that pt is a DNR but that family is okay w/ a central line and medications to keep BP up if necessary. 12:55 Reassessment: After fluid bolus BP has improved to 108/47, pt also more responsive to ph family, blinking in response to questions which family reports is her baseline, daughter states, " She talks a little but not a lot.". 14:15 Reassessment: Patient appears in no apparent distress at this time. Patient and/or ph family updated on plan of care and expected duration. Pain level reassessed. Family at bedside, BP noted to have dropped to 80/50, ERP notified, order received for 250 NS bolus, see AUG. 14:40 Reassessment: BP improved to 100s systolic, pt to be moved ti ICU. ph Vital Signs: 09:56 BP 107 / 53; Pulse 66; Resp 18 S; Temp 97.2(TE); Pulse Ox 96% on R/A; aa5 11:30 BP 101 / 49; Pulse 64; Resp 12; Pulse Ox 100% ; ph 12:28 BP 100 / 49; Pulse 65; Resp 15; Pulse Ox 100% on R/A; ph 12:30 BP 52 / 30; Pulse 82; Resp 6; Pulse Ox 88% on R/A; ph 12:45 BP 68 / 39; Pulse 81; Resp 10; Pulse Ox 90% on 4 lpm NC; ph 13:00 BP 108 / 47; Pulse 73; Resp 12; Pulse Ox 100% on 4 lpm NC; ph 14:22 BP 82 / 45; Pulse 77; Resp 12; Pulse Ox 98% on 2 lpm NC; ph 14:39 BP 102 / 48; Pulse 73; Resp 14; Temp 97.0; Pulse Ox 100% on 2 lpm NC; ph 12:30 ERP notified of vitals, pt placed on NC at 4L ph ED Course: 09:56 Patient arrived in ED. aa5 09:56 Arm band placed on. aa5 09:57 Diego Chris MD is Attending Physician. rn 10:01 Keshav Billy PA is PHCP. cp 10:01 Diego Chris MD is Attending Physician. cp 10:05 Triage completed. aa5 10:14 Oksana Johnson, LINDA is Primary Nurse. ph 10:23 Radiology exam delayed due to. Radiology exam delayed due to NURSE IN ROOM. 1 10:39 EKG done, by ED staff, reviewed by Diego Chris MD. em1 10:40 Inserted saline lock: 22 gauge in left antecubital area, using aseptic technique. Blood ph collected. 10:45 Initial lab(s) drawn, by me, sent to lab. First set of blood cultures drawn by me, ph Second set of blood cultures drawn by me. 11:35 XRAY Chest (1 view) In Process Unspecified. EDMS 12:04 Patient has correct armband on for positive identification. Bed in low position. Call ph light in reach. Side rails up X 1. surveillance monitor on. Pulse ox on. NIBP on. Door closed. Noise minimized. Warm blanket given. 12:07 Tulio De Jesus is Hospitalizing Provider. cp 12:23 No provider procedures requiring assistance completed. ph Administered Medications: 11:45 Drug: Zosyn 3.375 grams Route: IVPB; Infused Over: 60 mins; Site: left antecubital; zb 12:28 Drug: vancoMYCIN 1 grams Route: IVPB; Infused Over: 2 hrs; Site: left antecubital; ph 12:40 Drug: NS 0.9% 500 ml {Note: administered w/ pressure bag.} Route: IV; Rate: bolus; ph Site: left antecubital; 12:58 Follow up: Response: No adverse reaction; Blood pressure is elevated; IV Status: ph Completed infusion; IV Intake: 500ml 14:00 Drug: Potassium Chloride 10 mEq Route: IV; Rate: calculated rate; Site: left ph antecubital; 14:21 Drug: NS 0.9% 250 ml Route: IV; Rate: bolus; Site: left antecubital; ph 14:38 Follow up: Response: No adverse reaction; IV Status: Completed infusion; IV Intake: ph 250ml Intake: 12:58 IV: 500ml; Total: 500ml. ph 14:38 IV: 250ml; Total: 750ml. ph Outcome: 12:08 Decision to Hospitalize by Provider. cp 15:00 Patient left the ED. ph 15:00 Admitted to ICU accompanied by nurse, accompanied by tech, family with patient, via ph stretcher, with chart, Report called to Sayra MCKEON 15:00 Condition: stable Signatures: Dispatcher [employer] EDMS Diego Chris MD MD rn Martinez, Eric em1 Charlene Raman RN RN aa5 Oksana Johnson RN RN ph Mariajose, GAGAN Parr cp, Mikaela md1 Gi Burris RN RN zb Corrections: (The following items were deleted from the chart) 12:58 12:40 NS 0.9% 500 ml IV at bolus in left antecubital ph ph
[2020-04-27 12:11] LABS: Anisocytosis 1+; Blood Morphology Comment NOTED (NOT SEEN); Platelet Estimate ADEQ
[2020-04-27] MEDS ORDERED: NA CHLORIDE 0.9% 500 ML ONE ×2 (12:51→19:38)
[2020-04-27] MEDS ORDERED: KCL 20 MEQ/100 mL IVPB 20 MEQ/100 ML BAG IV ONE (13:21)
[2020-04-27] MEDS ORDERED: NA CHLORIDE 0.9% 250 ML ONE (14:28)
--- NOTE | 2020-04-27 15:48 | P.HP ---
Certification for Inpatient Patient admitted to: Inpatient With expected LOS: >2 Midnights Practitioner: I am a practitioner with admitting privileges, knowledge of patient current condition, hospital course, and medical plan of care. Services: Services provided to patient in accordance with Admission requirements found in Title 42 Section 412.3 of the Code of Federal Regulations Patient History Date of Service: 04/27/20 Reason for admission: Multiple infected wounds History of Present Illness: 70-year-old woman with a history of diabetes, end-stage renal disease on hemodialysis, previously on hospice for gangrenous had right BKA done about 1 month ago after her son revoked hospice. Patient was referred from the wound care to the emergency department because her wounds looked much worse with necrotic tissue. She has multiple necrotic wounds including the right amputation stump and a large sacral decubitus ulcer. She has other decubitus ulcers involving the heel, the right buttocks and the back. She has leukocytosis, and anemia. Patient's systolic blood pressure dropped to the 50 and became unresponsive in the ED. She was then started on aggressive IV fluid boluses. She was given IV Zosyn and vancomycin in the ED. Daughter present by her bedside time DNR status. The reported patient had refused to eat or drink. She was also refusing wound care and are leaning towards hospice. She agreed to central line placement and IV fluid resuscitation. Patient is admitted to ICU for further management. Allergies aspirin Allergy (Verified 02/26/20 01:13) Nausea/Vomiting Home Medications: Amantadine HCl [Amantadine] 50 mg PO DAILY 02/26/20 Amlodipine [Norvasc*] 10 mg PO DAILY 02/26/20 Baclofen 5 mg PO M,W,F 02/26/20 Carvedilol [Coreg] 25 mg PO Q12H 02/26/20 Clopidogrel Bisulfate [Plavix*] 75 mg PO DAILY 02/26/20 Linagliptin [Tradjenta] 5 mg PO DAILY 02/26/20 Omeprazole 20 mg PO BID 02/26/20 Sertraline [Zoloft*] 25 mg PO DAILY 02/26/20 Calcitrol [Rocaltrol*] 0.5 mcg PO DAILY #30 cap 03/03/20 Cholecalciferol (Vitamin D3) [Vitamin D 5,000 IU Cap*] 5,000 unit PO DAILY #30 cap 03/03/20 Epoetin Gerard-Epbx [Retacrit] 4,000 unit SQ M,W,F vial 03/03/20 Glucerna Shake [Glucerna*] 237 ml PO BID #60 can 03/03/20 Javier [Javier*] 1 pkt PO BID #60 powd.pack 03/03/20 Mannitol 25% [Mannitol*] 12.5 gm IV EVERY HD PRN vial 03/03/20 Medihoney [Medihoney Woundcare Gel*] 1 appl TOP DAILY #2 tube 03/03/20 Melatonin 5 mg PO BEDTIME PRN PRN #30 tablet 03/03/20 Tramadol HCl [Ultram] 50 mg PO Q6HR PRN #30 tablet 03/03/20 ramipriL [Altace*] 10 mg PO BEDTIME #30 cap 03/03/20 - Past Medical/Surgical History Diabetic: Yes -: HX OF STROKE IN 2001,2012 -: HYPERTENSION -: HYPERLIPIDEMIA -: HYPOTHYROIDISM -: GERD -: ASTHMA -: UTI -: Right eye double vision -: ESRd on dialysis -: Multiple decubitus ulcers -: HEART CATH -: THYROIDECTOMY Psychosocial/ Personal History: Patient lives at home with her son, hospice was revoked - Family History Sister -: Diabetes - Social History Alcohol use: No CD- Drugs: No Caffeine use: Yes Review of Systems is unable to be obtained (Due to unresponsiveness.) Physical Examination - Vital Signs Temperature: 97.0 F Blood Pressure: 102/48 Pulse: 73 Respirations: 14 - Physical Exam General: Unresponsive, Other (Cachectic) HEENT: Atraumatic, Normocephalic Neck: Supple Respiratory: Clear to auscultation bilaterally, Normal air movement Cardiovascular: Regular rate/rhythm, Edema (1+ lower extremity edema.) Gastrointestinal: Normal bowel sounds, Soft and benign, Non-distended Musculoskeletal: Other (Right BKA-amputation stump with wound dehiscence and necrotic tissue.) Integumentary: Other (Multiple decubitus [id number]-[id number] IV, right buttock, left heel.) - Studies Laboratory Data (last 24 hrs) 04/27/20 10:40: PT 13.6 H, INR 1.16, APTT 24.7 04/27/20 10:40: WBC 15.6 H, Hgb 8.5 L, Hct 27.0 L, Plt Count 201 04/27/20 10:40: Sodium 138, Potassium 3.1 L, BUN 20 H, Creatinine 2.65 H, Glucose 85, Magnesium 1.9, Total Bilirubin 0.4, AST 9 L, ALT 7 L, Alkaline Phosphatase 135 H Assessment and Plan - Problems (Diagnosis) (1) Septic shock Current Visit: Yes Status: Acute (2) Hypovolemic shock Current Visit: Yes Status: Acute (3) History of CVA (cerebrovascular accident) Current Visit: Yes Status: Acute (4) Peripheral vascular disease Current Visit: Yes Status: Acute (5) Gangrene Current Visit: Yes Status: Acute (6) Complication of below knee amputation stump Current Visit: No Status: Acute (7) Diabetes Current Visit: No Status: Acute (8) ESRD (end stage renal disease) on dialysis Current Visit: No Status: Acute (9) Stage IV pressure ulcer of sacral region Current Visit: No Status: Acute (10) Severe protein-calorie malnutrition Current Visit: Yes Status: Acute - Plan Poor prognosis. Aggressive IV hydration with normal saline. Aggressive antibiotic therapy-IV cefepime, Flagyl and vancomycin. Follow blood cultures. Central line per ED provider Vasopressors as needed. Keep NPO. Consult to general surgery-Dr. Sibley. Consult to nephrology-Dr. Le H[facility]ice consult. Family does not want any invasive measures. Only medical management including IV fluids, antibiotics, vasopressors. They are leaning towards hospice. - Advance Directives Does patient have a Living Will: No Does patient have a Durable POA for Healthcare: No
[2020-04-27] MEDS ORDERED: NA CHLORIDE 0.9% 1,000 ML IV SCH (16:05)
[2020-04-27] MEDS ORDERED: VANCOMYCIN 1 GM in NA CHLORIDE 0.9% 500 ML IVPB ONE (16:05)
[2020-04-27] MEDS ORDERED: ONDANSETRON 4 MG/2 ML VIAL IV PRN (16:05)
[2020-04-27] MEDS: INSULIN -REGULAR HUMAN 50 UNIT/0.5 ML ML SQ SCH ×3 (16:30→23:58)
[2020-04-27 17:12] LABS: Protime INR 1.28
--- NOTE | 2020-04-27 17:50 | P.INFCA ---
Sepsis Focused Assessment - Focused Assessment Complete? Sepsis Focused Assessment Completed?: Yes - Sepsis Screen Result Severe Sepsis: Positive - Evaluation Current stage of sepsis: Severe sepsis - Vital Signs Reviewed: Yes Temperature: 97.0 F Heart rate: 73 Blood Pressure: 102/48 Respiratory Rate: 14 - Examination Date exam was performed: 04/27/20 Heart: Regular rate/rhythm Lungs: Clear bilaterally Peripheral pulses: 1+ Faint Peripheral pulse location: Other (Carotid) Capillary refill: >2 Seconds Skin examination: Pale
[2020-04-27] MEDS ORDERED: NA CHLORIDE 0.9% 500 ML IV ONE (19:00)
[2020-04-27] MEDS: METRONIDAZOLE 500mg IVPB 500 MG/100 ML BAG IV SCH (19:26)
[2020-04-27] MEDS ORDERED: METRONIDAZOLE 500mg IVPB 500 MG/100 ML BAG IV ONE (19:38)
[2020-04-27] MEDS: D5 0.9 NS 1,000 ML IV SCH (20:03)
[2020-04-27] MEDS: CEFEPIME/SWI 1gm 10 ML IVP SCH (20:04)
[2020-04-27] MEDS ORDERED: HEPARIN 5000 UNIT/ML 1 ML VIAL ONE (20:13)
[2020-04-27] MEDS ORDERED: D5 0.9 NS 1,000 ML IV ONE (20:16)
[2020-04-27 20:23] VITALS: BMI 18.8
[2020-04-27] MEDS: HEPARIN 5000 UNIT/ML 1 ML VIAL SQ SCH (20:32)
[2020-04-27] MEDS ORDERED: CEFEPIME 1 GM/VIAL IV SCH (21:00)
[2020-04-28] MEDS ORDERED: METRONIDAZOLE 500mg IVPB 500 MG/100 ML BAG IV ONE ×2 (01:08→08:34)
[2020-04-28] MEDS: METRONIDAZOLE 500mg IVPB 500 MG/100 ML BAG IV SCH ×3 (01:38→16:43)
[2020-04-28] MEDS: INSULIN -REGULAR HUMAN 50 UNIT/0.5 ML ML SQ SCH ×2 (05:15→12:00)
[2020-04-28] MEDS: D5 0.9 NS 1,000 ML IV SCH ×3 (05:34→22:05)
[2020-04-28] MEDS ORDERED: D5 0.9 NS 1,000 ML IV ONE (05:36)
[2020-04-28 06:42] LABS: Absolute Lymphocytes (CBC) 0.4 K/uL (0.7-4.9); Basophils % 0.2 % (0-1.3); Hematocrit 23.6 % (36.0-45.0); Lymphocytes % 2.6 % (15.3-44.8); MPV 8.6 fL (7.6-11.3); RBC Red Blood Cell Count 2.71 M/uL (3.86-4.86)
[2020-04-28 07:00] LABS: AST/SGOT 8 U/L (15-37); Albumin 0.9 g/dL (3.4-5.0); Alkaline Phosphatase 108 U/L (45-117); BUN Blood Urea Nitrogen 22 mg/dL (7-18); Bicarbonate 26 mmol/L (21-32); Bilirubin Total 0.3 mg/dL (0.2-1.0); Glucose Level 158 mg/dL (74-106); Magnesium 1.8 mg/dL (1.8-2.4); Phosphorus 3.2 mg/dL (2.5-4.9); Protein, Total 4.9 g/dL (6.4-8.2); Sodium Level 143 mmol/L (136-145)
[2020-04-28 07:01] LABS: ALT/SGPT < 6 U/L (12-78)
[2020-04-28 07:04] LABS: Potassium 2.9 mmol/L (3.5-5.1)
--- NOTE | 2020-04-28 07:17 | EKG ---
Test Date: 2020-04-27 Test Time: 10:21:35 [employer] Operator: GLENNY MEASUREMENT RESULTS: Intervals: Rate: 66 CO: QRSD: 108 QT: 456 QTc: 478 Combs: P: CO: QRS: 63 T: 98 INTERPRETIVE STATEMENTS: Accelerated Junctional rhythm Nonspecific T wave abnormality Prolonged QT Abnormal ECG Compared to ECG 02/25/2020 17:29:45 Accelerated junctional rhythm now present T-wave abnormality now present Prolonged QT interval now present Sinus rhythm no longer present Left ventricular hypertrophy no longer present Early repolarization no longer present Electronically Signed On 04-28-20 07:16:10 TACTICAL DEBRIEFER by Leeroy Toscano
--- NOTE | 2020-04-28 07:37 | P.CNS ---
Date of Consult: 04/28/20 Reason for Consult: ESRD Requesting Physician: zarina contreras Chief Complaint: Multiple infected wounds History of Present Illness: 70-year-old woman with a history of diabetes, end-stage renal disease on hemodialysis, previously on hospice for gangrenous had right BKA done about 1 month ago after her son revoked hospice. Patient was referred from the wound care to the emergency department because her wounds looked much worse with necrotic tissue. She has multiple necrotic wounds including the right amputation stump and a large sacral decubitus ulcer. She has other decubitus ulcers involving the heel, the right buttocks and the back. She has leukocytosis, and anemia. Patient's systolic blood pressure dropped to the 50 and became unresponsive in the ED. She was then started on aggressive IV fluid boluses. She was given IV Zosyn and vancomycin in the ED. Daughter present by her bedside time DNR status. The reported patient had refused to eat or drink. She was also refusing wound care and are leaning towards hospice. She agreed to central line placement and IV fluid resuscitation. Patient is admitted to ICU for further management. Limited HPI/ ROS due to AMS. Allergies aspirin Allergy (Verified 04/27/20 19:05) Nausea/Vomiting Home medications list reviewed: Yes Home Medications: Amlodipine [Norvasc*] 10 mg PO DAILY 02/26/20 Baclofen 5 mg PO M,W,F 02/26/20 Carvedilol [Coreg] 25 mg PO Q12H 02/26/20 Clopidogrel Bisulfate [Plavix*] 75 mg PO DAILY 02/26/20 Sertraline [Zoloft*] 25 mg PO DAILY 02/26/20 Atorvastatin Calcium 20 mg PO DAILY 04/28/20 Codeine/APAP [Tylenol #3*] 1 tab PO PRN PRN 04/28/20 Lorazepam [Ativan] 1 tab PO PRN PRN 04/28/20 - Past Medical/Surgical History Diabetic: Yes -: HX OF STROKE IN 2001,2012 -: HYPERTENSION -: HYPERLIPIDEMIA -: HYPOTHYROIDISM -: GERD -: ASTHMA -: UTI -: Right eye double vision -: ESRd on dialysis -: Multiple decubitus ulcers -: HEART CATH -: THYROIDECTOMY Psychosocial/ Personal History: Patient lives at home with her son, hospice was revoked - Family History Sister Medical History: Diabetes Mother Medical History: Hypertension Father Medical History: Heart disease, Diabetes - Social History Smoking Status: Never smoker Alcohol use: No CD- Drugs: No Caffeine use: Yes Place of Residence: Home Review of Systems 10-point ROS is otherwise unremarkable General: Weakness, Malaise Respiratory: SOB with Excertion Neurological: Weakness, Confusion Physical Examination Temp Pulse Resp BP Pulse Ox 96.9 F 59 8 L 106/50 L 100 04/28/20 04:00 04/28/20 06:00 04/28/20 06:00 04/28/20 06:00 04/28/20 06:00 General: Cooperative, Confused HEENT: Atraumatic Neck: JVD not distended Respiratory: Clear to auscultation bilaterally Cardiovascular: Regular rate/rhythm, Edema Gastrointestinal: Soft and benign, Non-distended Musculoskeletal: No clubbing, No contractures Integumentary: No rashes, No cyanosis Neurological: Abnormal speech Laboratory Data (last 24 hrs) 04/27/20 10:40: PT 13.6 H, INR 1.16, APTT 24.7 04/27/20 10:40: WBC 15.6 H, Hgb 8.5 L, Hct 27.0 L, Plt Count 201 04/27/20 10:40: Sodium 138, Potassium 3.1 L, BUN 20 H, Creatinine 2.65 H, Glucose 85, Magnesium 1.9, Total Bilirubin 0.4, AST 9 L, ALT 7 L, Alkaline Phosphatase 135 H Imagings Data: EXAM DESCRIPTION: Gauri Single View04/27/2020 11:35 am CLINICAL HISTORY: Shortness of breath COMPARISON: February 2020 FINDINGS: Small bilateral pleural effusions with basilar atelectasis The upper lobes appear clear The heart is mildly to moderately enlarged. A central venous catheter is present. Conclusions/Impression: A/ ESRD on HD TTS Hypokalemia Hypotension/ Sepsis Diastolic CHF, chronic DM II with CKD Severe Malnutrition Anemia in CKD TAO/ Secondary HyperPTH PAD with gangrene P/ Continue current POC and Medications. Next HD as needed. Continue IVF bolus as needed. Gentle IVF. Family declines pressor therapy. Give IV potassium. No NSAIDs. AM labs. Daily weight. Family is considering hospice care. Thank you kindly for the consultation. Case discussed with Dr. Contreras. Critical Care: Yes (>30min)
[2020-04-28] MEDS ORDERED: PNEUMOCOCCAL VACCINE 0.5 ML IMVAC ONE (08:00)
[2020-04-28] MEDS ORDERED: INFLUENZA VACCINE (for 3y+) 0.5 ML DOSE IMVAC ONE (08:00)
[2020-04-28] MEDS: HEPARIN 5000 UNIT/ML 1 ML VIAL SQ SCH ×2 (08:27→20:13)
[2020-04-28] MEDS ORDERED: HEPARIN 5000 UNIT/ML 1 ML VIAL ONE (08:34)
[2020-04-28] MEDS ORDERED: KCL 20 MEQ/100 mL IVPB 20 MEQ/100 ML BAG IV ONE (08:34)
[2020-04-28] MEDS ORDERED: VANCOMYCIN 500 MG in NA CHLORIDE 0.9% 100 ML IVPB SCH (09:00)
[2020-04-28] MEDS ORDERED: KCL 20 MEQ/100 mL IVPB 20 MEQ/100 ML BAG IV SCH (09:00)
[2020-04-28] MEDS ORDERED: ENOXAPARIN 40 MG/0.4 ML SQ SCH (09:00)
[2020-04-28 09:03] LABS: Anisocytosis 1+; Blood Morphology Comment NOTED (NOT SEEN); Hypochromasia 1+; Platelet Estimate DECR
[2020-04-28] MEDS: CEFEPIME/SWI 1gm 10 ML IVP SCH (09:13)
--- NOTE | 2020-04-28 11:41 | P.PN ---
Subjective Date of Service: 04/28/20 Chief Complaint: Multiple infected wounds Patient not able to give subjective complaint because of unresponsiveness. Blood pressure have improved compared to yesterday but still borderline hypotensive. She has hypokalemia. Central venous line was placed last night. Blood culture is growing Gram positive cocci. I am told family is requesting for hospice. Physical Examination - Vital Signs Temperature: 97.0 F Blood Pressure: 102/48 Pulse: 73 Respirations: 14 Pulse Ox (%): 100 - Physical Exam General: Unresponsive HEENT: Mucous membr. moist/pink Neck: Supple, JVD not distended Respiratory: Clear to auscultation bilaterally, Normal air movement Cardiovascular: No edema, Regular rate/rhythm, Normal S1 S2 Gastrointestinal: Normal bowel sounds, Soft and benign Musculoskeletal: Other (Right BKA) Neurological: Other (Unresponsive) - Studies Laboratory Data (last 24 hrs) 04/27/20 10:40: WBC 15.6 H, Hgb 8.5 L, Hct 27.0 L, Plt Count 201 Assessment And Plan - Current Problems (Diagnosis) (1) Septic shock Current Visit: Yes Status: Acute (2) Hypovolemic shock Current Visit: Yes Status: Acute (3) History of CVA (cerebrovascular accident) Current Visit: Yes Status: Acute (4) Peripheral vascular disease Current Visit: Yes Status: Acute (5) Gangrene Current Visit: Yes Status: Acute (6) Complication of below knee amputation stump Current Visit: No Status: Acute (7) Diabetes Current Visit: No Status: Acute (8) ESRD (end stage renal disease) on dialysis Current Visit: No Status: Acute (9) Stage IV pressure ulcer of sacral region Current Visit: No Status: Acute (10) Severe protein-calorie malnutrition Current Visit: Yes Status: Acute - Plan Poor prognosis. Continue IV fluid but at a reduce rate given history of end-stage renal disease on hemodialysis. Continue current antibiotics- IV cefepime, Flagyl and vancomycin. Follow blood cultures. Family declined vasopressors Keep NPO. Nephrology input appreciated. Hospice consulted. Wound care as tolerated.
[2020-04-28] MEDS: COLLAGENASE 30 GM OINTMENT TOP SCH ×2 (14:07→17:00)
[2020-04-28] MEDS ORDERED: FENTANYL CITR 100 MCG/2 ML IV PRN (20:14)
[2020-04-29] MEDS: METRONIDAZOLE 500mg IVPB 500 MG/100 ML BAG IV SCH ×2 (01:14→09:55)
[2020-04-29] MEDS: KCL 20 MEQ/100 mL IVPB 20 MEQ/100 ML BAG IV SCH ×2 (01:14→03:07)
[2020-04-29] MEDS: D5 0.9 NS 1,000 ML IV SCH ×4 (03:12→22:06)
[2020-04-29 05:59] LABS: Absolute Lymphocytes (CBC) 0.2 K/uL (0.7-4.9); Basophils % 0.3 % (0-1.3); Hematocrit 22.3 % (36.0-45.0); Lymphocytes % 1.5 % (15.3-44.8); RBC Red Blood Cell Count 2.53 M/uL (3.86-4.86)
[2020-04-29] MEDS ORDERED: LORAZEPAM 1 MG TABLET PO PRN (06:10)
[2020-04-29] MEDS ORDERED: CODEINE 30MG/APAP 300MG TAB PO PRN (06:10)
[2020-04-29 06:17] LABS: Potassium 3.7 mmol/L (3.5-5.1)
[2020-04-29] MEDS: ATORVASTATIN 20 MG TAB PO SCH (09:00)
[2020-04-29] MEDS ORDERED: CEFEPIME/SWI 1gm 10 ML IVP SCH (09:00)
[2020-04-29] MEDS: SERTRALINE HCL 50 MG TAB PO SCH (09:00)
[2020-04-29] MEDS: HEPARIN 5000 UNIT/ML 1 ML VIAL SQ SCH ×2 (09:54→21:00)
[2020-04-29] MEDS: COLLAGENASE 30 GM OINTMENT TOP SCH (09:57)
[2020-04-29 11:42] LABS: Magnesium 1.6 mg/dL (1.8-2.4); Potassium 3.5 mmol/L (3.5-5.1)
[2020-04-29] MEDS ORDERED: NA CHLORIDE 0.9% 500 ML ONE (14:34)
[2020-04-29] MEDS ORDERED: LIDOCAINE 1% MPF 30 ML VIAL ONE (14:36)
--- NOTE | 2020-04-29 15:53 | P.OP ---
Software Test And Validation Engineer: NONE,NONE Preoperative diagnosis: Sepsis, ESRD, CVA and Hospice Postoperative diagnosis: same Primary procedure: Removal right chest tesio catheter Anesthesia: MAC Estimated blood loss: min Specimen: Catheter tip C&S Findings: as above Complications: None Transferred to: Recovery Room Condition: Good
[2020-04-29] MEDS ORDERED: levoFLOXacin 500 MG TAB PO ONE (16:00)
--- NOTE | 2020-04-29 16:09 | PREOPCON ---
Date of Consultation: 04/29/2020 Reason: Patient needs dialysis catheter removed. History Of Present Illness: The patient is a 70-year-old female with multiple medical problems and g angrenous right lower extremity, had a BKA done about a month ago, and she had some sacral decubitus and had worsening of the wound. She came in and was admitted for that reason, and she had been on ho spice in the past and that was revoked and now the family has decided that they no longer want dialys is and she has a catheter for that and they want to take her home with hospice. So I was consulted f or removal of the catheter after talking to the daughter and the patient is unable to provide any rev iew of systems. She looks rather sick and not doing too well but they do not want to take her home w ith a catheter. Review of Systems: Otherwise unremarkable. Medical History: Significant for strokes multiple, hypertension, hyperlipidemia, end-stage renal dis ease. Past Surgical History: Thyroidectomy, multiple decubitus ulcers surgery, heart catheterization, Tesi o catheter placement. Allergies: ASPIRIN. Social History: Patient does not smoke or drink. Family History: Significant for diabetes. Physical Examination: Vital Signs: Stable afebrile. General: Awake. Head and Neck: No masses. Chest: Clear. Heart: S1, S2. Abdomen: Soft. Extremities: Neurovascularly intact. Dressing clean, dry, intact. Laboratory Data: White count is 15,000, H and H is 6.5 and 22.3, INR is 1.28. Chemistry reviewed. Assessment: A 70-year-old female with multiple medical problems, on hospice and needs Tesio catheter removed. Recommendation: We will go ahead and remove the Tesio catheter. Family understands the risks, benefi ts, and alternatives and agrees to procedure. /MODL Voice ID: [id number] Report ID: [id number]
--- NOTE | 2020-04-29 16:42 | P.PN ---
Subjective Date of Service: 04/29/20 Chief Complaint: Multiple infected wounds Subjective: No new changes (Acute events Overnite. Patient is opening her eyes but she is not very interactive. Family opted to proceed with hospice care today. Discharge is being postponed to tomorrow at which point a hospice nurse can be present to assess her.) Physical Examination - Vital Signs Temperature: 97.0 F Blood Pressure: 110/58 Pulse: 66 Respirations: 16 Pulse Ox (%): 98 - Physical Exam General: Cachectic, Acute distress HEENT: Atraumatic, Normocephalic, EOMI Neck: Supple Respiratory: Clear to auscultation bilaterally, Normal air movement Cardiovascular: No edema, Normal pulses, Regular rate/rhythm, Normal S1 S2 Gastrointestinal: Normal bowel sounds, Soft and benign, Non-distended, No tenderness Musculoskeletal: Other (R BKA, L femoral vein central line) Neurological: Other (guarded) - Studies Microbiology Data (last 24 hrs): 04/27/20 11:45 Wound - Coccyx Gram Stain - Final 04/27/20 10:25 Blood - Blood Blood Culture Gram Stain - Final 04/27/20 10:25 Blood - Blood Gram Stain - Final 04/27/20 11:45 Wound - Other Gram Stain - Final 04/27/20 11:45 Wound - Other Culture & Sensitivity - Final Enterobacter Cloacae Assessment & Plan Physician Review Additional Text: Assessment [age]-year-old female previously on hospice currently admitted with severe sepsis secondary to right lower extremity gangrene. She has a history of R BKA and now developed a stump infection. She is bacteremic with staph aureus. Her wound cultures showed klebsiella pneumonia and enterobacter cloacae. Patient also has ESRD on HD. She has requested that her family stops with additional HD sessions due to ongoing pain post HD. Family has agreed to hospice care and they requested that her tunnelled HD catheter be removed Severe sespsis Stump infection and gangrene Staph aureus bacteremia ESRD Anemia PLAN: Avoid invasive treatment Antibiotics modified to include vancomycin and levoflxoacin I will most likely discharge her on levofloxacin and linezolid for 14 days Pleasure feeds as per Hospice team Patient has a Hb 6.5. Since patient will be hospice upon discharge, I will go ahead and transfuse her with 1 unit
--- NOTE | 2020-04-29 21:19 | P.PN ---
Date of Service: 04/29/20 Vital Signs Temp Pulse Resp BP Pulse Ox 97.0 F 66 16 110/58 L 98 04/29/20 16:46 04/29/20 16:46 04/29/20 16:46 04/29/20 16:46 04/29/20 16:46 Medications Acetaminophen/Codeine Phosphate (Tylenol W/Codeine #3 Tab) 1 tab PO PRN PRN PRN Reason: Pain scale 2-4 (Mild) Stop: 05/29/20 06:11 Atorvastatin Calcium (Lipitor) 20 mg PO DAILY MABLE Stop: 05/29/20 09:01 Last Admin: 04/29/20 09:00 Dose: Not Given Documented by: Baclofen (Lioresal) 5 mg PO M,W,F [facility] Stop: 05/30/20 17:01 Collagenase (Santyl Ointment) 1 appl TOP DAILY MABLE Stop: 05/28/20 17:01 Last Admin: 04/29/20 09:57 Dose: 1 appl Documented by: Fentanyl Citrate (Sublimaze) 25 mcg IV Q4H PRN PRN Reason: Pain scale 8-10 (Severe) Stop: 05/28/20 20:15 Heparin Sodium (Porcine) (Heparin 5,000 Units/Ml) 5,000 unit SQ Q12HR MABLE Stop: 05/27/20 21:01 Last Admin: 04/29/20 09:54 Dose: 5,000 unit Documented by: Dextrose/Sodium Chloride (D5w Ns 1-Liter Bag) 1,000 mls @ 100 mls/hr IV .Q10H MABLE Stop: 05/27/20 16:06 Last Admin: 04/29/20 18:05 Dose: Not Given Documented by: Vancomycin HCl 500 mg/ Sodium (Chloride) 100 mls @ 100 mls/hr IVPB AFTER EACH DIALYSIS [facility] Stop: 05/28/20 09:01 Lorazepam (Ativan) 1 mg PO PRN PRN PRN Reason: ANXIETY Stop: 05/29/20 06:11 Ondansetron HCl (Zofran) 4 mg IV Q6HP PRN PRN Reason: NAUSEA / VOMITING Stop: 05/27/20 16:06 Sertraline HCl (Zoloft) 25 mg PO DAILY MABLE Stop: 05/29/20 09:01 Last Admin: 04/29/20 09:00 Dose: Not Given Documented by: Sodium Chloride (Normal Saline Flush) 10 ml IV BID MABLE Stop: 05/27/20 21:01 Last Admin: 04/29/20 09:57 Dose: 10 ml Documented by: Microbiology Results 04/27/20 11:45 Wound - Coccyx Gram Stain - Final 04/27/20 11:45 Wound - Coccyx Culture & Sensitivity - Preliminary Klebsiella Pneumoniae Enterobacter Cloacae 04/27/20 10:25 Blood - Blood Aerobic Blood Culture - Preliminary Staph Aureus 04/27/20 10:25 Blood - Blood Blood Culture Gram Stain - Final 04/27/20 10:25 Blood - Blood Anaerobic Blood Culture - Preliminary Staph Aureus 04/27/20 10:25 Blood - Blood Gram Stain - Final 04/27/20 11:45 Wound - Other Gram Stain - Final 04/27/20 11:45 Wound - Other Culture & Sensitivity - Final Enterobacter Cloacae 04/27/20 10:40 Blood - Blood Aerobic Blood Culture - Preliminary 04/27/20 10:40 Blood - Blood Blood Culture Gram Stain - Preliminary 04/27/20 10:40 Blood - Blood Anaerobic Blood Culture - Preliminary 04/27/20 10:40 Blood - Blood Gram Stain - Preliminary Assessment/ Plan: Nephrology CPS stable without CP or SOB. No acute events overnight. Limited IH/ ROS due to AMS. Vitals, medications, blood work and imaging reviewed in the chart. General: Cooperative, Confused HEENT: Atraumatic Neck: JVD not distended Respiratory: Clear to auscultation bilaterally Cardiovascular: Regular rate/rhythm, Edema Gastrointestinal: Soft and benign, Non-distended Musculoskeletal: No clubbing, No contractures Integumentary: No rashes, No cyanosis Neurological: Abnormal speech Laboratory Data (last 24 hrs) 04/27/20 10:40: PT 13.6 H, INR 1.16, APTT 24.7 04/27/20 10:40: WBC 15.6 H, Hgb 8.5 L, Hct 27.0 L, Plt Count 201 04/27/20 10:40: Sodium 138, Potassium 3.1 L, BUN 20 H, Creatinine 2.65 H, Glucose 85, Magnesium 1.9, Total Bilirubin 0.4, AST 9 L, ALT 7 L, Alkaline Phosphatase 135 H Imagings Data: EXAM DESCRIPTION: RADChest Single View04/27/2020 11:35 am CLINICAL HISTORY: Shortness of breath COMPARISON: February 2020 FINDINGS: Small bilateral pleural effusions with basilar atelectasis The upper lobes appear clear The heart is mildly to moderately enlarged. A central venous catheter is present. Conclusions/Impression: A/ ESRD on HD TTS Hypokalemia Hypotension/ Sepsis Diastolic CHF, chronic DM II with CKD Severe Malnutrition Anemia in CKD TAO/ Secondary HyperPTH PAD with gangrene P/ Continue current POC and Medications. Will hold HD today due to possible hospice initiation. Continue IVF bolus as needed. Gentle IVF. Family declines pressor therapy. Encourage nutrition. No NSAIDs. AM labs. Daily weight. Family is considering hospice care. Case discussed with Dr. Prajapati.
--- NOTE | 2020-04-29 21:21 | OP ---
Date of Procedure: 04/29/2020 Surgeon: Pierre Dodd MD Multi Media Specialist: None. Preoperative Diagnoses: End-stage renal disease, multiple strokes, debility, weakness, and the patie nt is on hospice. Postoperative Diagnoses: End-stage renal disease, multiple strokes, debility, weakness, and the jatinder ent is on hospice. Procedure Performed: Placement of right chest Tesio catheter. Estimated Blood Loss: Minimal. Specimen: Tesio catheter. Finding: As above. Anesthesia: MAC. Complications: None. Disposition: The patient tolerated the procedure in stable condition, taken to Recovery in good gene ral condition. Procedure In Detail: The patient was brought to the OR and placed in supine position. MAC anesthesi a was begun. The patient was prepped and draped in the usual sterile fashion. Lidocaine 1% infiltra lalo locally. A 15-blade was used to make a 2 x 1 cm ellipse of skin incision around the catheter ins ertion site on the chest wall. Subcutaneous tissue divided and cuff identified and freed from the medina rrounding tissue with sharp and blunt dissection. Catheter removed. Tip of the catheter sent for cu lture and sensitivity and then wound irrigated, bleeding controlled cautery, and 3-0 chromic used for subcutaneous tissue and closed the skin. Sterile dressing was applied. The patient was awakened and taken to Recovery in good general condition. SEN/OLEG Voice ID: [id number] Report ID: [id number]
--- NOTE | 2020-04-30 08:04 | P.DS ---
Admission Date: 04/27/20 Discharge Date: 04/30/20 Disposition: HOSPICE-HOME Discharge Condition: SERIOUS Reason for Admission: Multiple infected wounds Brief History of Present Illness: 70-year-old woman with a history of diabetes, end-stage renal disease on hemodialysis, previously on hospice for gangrenous had right BKA done about 1 month ago after her son revoked hospice. Patient was referred from the wound care to the emergency department because her wounds looked much worse with necrotic tissue. She has multiple necrotic wounds including the right amputation stump and a large sacral decubitus ulcer. She has other decubitus ulcers involving the heel, the right buttocks and the back. She has leukocytosis, and anemia. Patient's systolic blood pressure dropped to the 50 and became unresponsive in the ED. She was then started on aggressive IV fluid boluses. She was given IV Zosyn and vancomycin in the ED. Daughter present by her bedside time DNR status. The reported patient had refused to eat or drink. She was also refusing wound care and are leaning towards hospice. She agreed to central line placement and IV fluid resuscitation. Patient is admitted to ICU for further management. Hospital Course: Patient was admitted for severe sepsis secondary to wound cellulitis. Her wound cultures yielded Klebsiella pneumonia and Enterobacter cloacae, and her blood cultures showed 2/2 staph aureus. She was on vancomycin and meropenem. She remained critical during this hospitalization as evidenced by persistent leukocytosis and a low Hb of 6.5. Family has opted for hospice care at this time and against blood transfusion and hemodialysis. She will be discharged to hospice today. I had initially wanted to discharge patient on levofloxacin and linezolid but this will not be in compliance with the spirit of hospice care. Vital Signs/Physical Exam: Temp Pulse Resp BP Pulse Ox 97.0 F 66 16 110/58 L 98 04/30/20 07:57 04/30/20 07:57 04/30/20 07:57 04/30/20 07:57 04/30/20 07:57 General: Cachectic, Acute distress, Other (motionless) HEENT: Atraumatic, Normocephalic, EOMI Cardiovascular: Regular rate/rhythm, Normal S1 S2, Other (left femoral vein central line) Gastrointestinal: Normal bowel sounds, Soft and benign, Non-distended, No guarding Neurological: Other (guarded affect) Laboratory Data at Discharge: WBC 15.0 K/uL (4.3-10.9) H D 04/29/20 05:40 Hgb 6.5 g/dL (12.0-15.0) L* 04/29/20 05:40 Hct 22.3 % (36.0-45.0) L 04/29/20 05:40 Plt Count 138 K/uL (152-406) L 04/29/20 05:40 PT 15.0 SECONDS (9.5-12.5) H 04/27/20 16:48 INR 1.28 04/27/20 16:48 APTT 24.7 SECONDS (24.3-36.9) 04/27/20 10:40 Sodium 144 mmol/L (136-145) 04/29/20 05:40 Potassium 3.5 mmol/L (3.5-5.1) 04/29/20 10:54 BUN 22 mg/dL (7-18) H 04/29/20 05:40 Creatinine 2.73 mg/dL (0.55-1.3) H 04/29/20 05:40 Glucose 259 mg/dL (74-106) H 04/29/20 05:40 Phosphorus 3.2 mg/dL (2.5-4.9) 04/28/20 04:50 Magnesium 1.6 mg/dL (1.8-2.4) L 04/29/20 10:54 Total Bilirubin 0.3 mg/dL (0.2-1.0) 04/28/20 04:50 AST 8 U/L (15-37) L 04/28/20 04:50 ALT < 6 U/L (12-78) L 04/28/20 04:50 Alkaline Phosphatase 108 U/L (45-117) 04/28/20 04:50 Home Medications: Amlodipine [Norvasc*] 10 mg PO DAILY 02/26/20 Baclofen 5 mg PO M,W,F 02/26/20 Carvedilol [Coreg] 25 mg PO Q12H 02/26/20 Clopidogrel Bisulfate [Plavix*] 75 mg PO DAILY 02/26/20 Sertraline [Zoloft*] 25 mg PO DAILY 02/26/20 Atorvastatin Calcium 20 mg PO DAILY 04/28/20 Codeine/APAP [Tylenol #3*] 1 tab PO PRN PRN 04/28/20 Lorazepam [Ativan] 1 tab PO PRN PRN 04/28/20 Collagenase [Santyl Ointment*] 1 appl TOP DAILY tube 04/30/20 Activity: Bedrest Followup: Unknown,U [Primary Care Provider] -
[2020-04-30 08:44] VITALS: BP 57/43; TEMP 95.2
[2020-04-30] MEDS: HEPARIN 5000 UNIT/ML 1 ML VIAL SQ SCH (09:00)
[2020-04-30] MEDS: SERTRALINE HCL 50 MG TAB PO SCH (09:00)
[2020-04-30] MEDS: ATORVASTATIN 20 MG TAB PO SCH (09:00)
[2020-04-30 09:10] VITALS: O2SAT 98
[2020-04-30] MEDS: COLLAGENASE 30 GM OINTMENT TOP SCH (10:16)
[2020-04-30] MEDS ORDERED: BACLOFEN 10 MG TAB PO SCH (17:00)
--- NOTE | 2020-04-30 20:53 | P.PN ---
Date of Service: 04/30/20 Vital Signs Temp Pulse Resp BP Pulse Ox 95.2 F L 66 18 57/43 L 100 04/30/20 08:00 04/30/20 08:00 04/30/20 08:00 04/30/20 08:00 04/30/20 08:00 Microbiology Results 04/27/20 11:45 Wound - Coccyx Gram Stain - Final 04/27/20 11:45 Wound - Coccyx Culture & Sensitivity - Final Klebsiella Pneumoniae Enterobacter Cloacae Staph Aureus 04/27/20 10:25 Blood - Blood Aerobic Blood Culture - Final Staph Aureus 04/27/20 10:25 Blood - Blood Blood Culture Gram Stain - Final 04/27/20 10:25 Blood - Blood Anaerobic Blood Culture - Final Staph Aureus 04/27/20 10:25 Blood - Blood Gram Stain - Final 04/27/20 10:40 Blood - Blood Aerobic Blood Culture - Final Staph Aureus 04/27/20 10:40 Blood - Blood Blood Culture Gram Stain - Final 04/27/20 10:40 Blood - Blood Anaerobic Blood Culture - Final Staph Aureus 04/27/20 10:40 Blood - Blood Gram Stain - Final 04/27/20 11:45 Wound - Other Gram Stain - Final 04/27/20 11:45 Wound - Other Culture & Sensitivity - Final Enterobacter Cloacae Assessment/ Plan: Nephrology CPS stable without CP or SOB. No acute events overnight. Limited IH/ ROS due to AMS/ Unresponsive Vitals, medications, blood work and imaging reviewed in the chart. General: Cooperative, Confused HEENT: Atraumatic Neck: JVD not distended Respiratory: Clear to auscultation bilaterally Cardiovascular: Regular rate/rhythm, Edema Gastrointestinal: Soft and benign, Non-distended Musculoskeletal: No clubbing, No contractures Integumentary: No rashes, No cyanosis Neurological: Abnormal speech Laboratory Data (last 24 hrs) 04/27/20 10:40: PT 13.6 H, INR 1.16, APTT 24.7 04/27/20 10:40: WBC 15.6 H, Hgb 8.5 L, Hct 27.0 L, Plt Count 201 04/27/20 10:40: Sodium 138, Potassium 3.1 L, BUN 20 H, Creatinine 2.65 H, Glucose 85, Magnesium 1.9, Total Bilirubin 0.4, AST 9 L, ALT 7 L, Alkaline Phosphatase 135 H Imagings Data: EXAM DESCRIPTION: Gauri Single View04/27/2020 11:35 am CLINICAL HISTORY: Shortness of breath COMPARISON: February 2020 FINDINGS: Small bilateral pleural effusions with basilar atelectasis The upper lobes appear clear The heart is mildly to moderately enlarged. A central venous catheter is present. Conclusions/Impression: A/ ESRD on HD TTS Hypokalemia Hypotension/ Sepsis Diastolic CHF, chronic DM II with CKD Severe Malnutrition Anemia in CKD TAO/ Secondary HyperPTH PAD with gangrene P/ Continue current POC and Medications. Discontinue HD. Gentle IVF. Family declines pressor therapy. Nutrition as tolerated. No NSAIDs. AM labs. Daily weight. Discharge to hospice care. Case discussed with Dr. Prajapati.
[2020-05-01] MEDS ORDERED: levoFLOXacin 250 MG TAB PO SCH (17:00)
--- NOTE | 2020-05-02 22:06 | CON ---
Date of Consultation: 04/30/2020 Reason For Consultation: PEG tube evaluation. History Of Present Illness: The patient is a 70-year-old female with history of diabetes, e nd-stage renal disease, hemodialysis, now on hospice and had right BKA done about a month ago and now son at bedside saying that the family has decided once again to place her in hospice care. We will also take a look at the PEG and make sure that it was functioning appropriately. Nurses stated they can flush the PEG tube appropriately. The PEG tube site is clear. Nu Gauze pad is there at the PEG tube site and appears to be appropriate with marker for the PEG tube bumper, appropriate for her thin body habitus. Past Medical History: Significant for hypertension, hyperlipidemia, stroke, hypothyroidism, gastroes ophageal reflux disease, asthma, urinary tract infection, right eye double vision, end-stage renal di sease on hemodialysis, multiple decubitus ulcers, heart catheterization, thyroidectomy. Medications: Include amantadine, Norvasc, baclofen, Coreg, Plavix, Tradjenta, Prilosec, Zoloft, calc itriol, vitamin D3, Retacrit, Glucerna, Javier, mannitol, Medihoney wound care gel, melatonin, Ultram, Altace. Allergies: ASPIRIN. Family History: Sister with diabetes. Social History: No tobacco or alcohol. Lives at home with her son. She is back on hospice, that morales ve been revoked in the past, but now she is back in the hospital. As per son since her , she has done extremely poorly. Impression: 1.Percutaneous endoscopic gastrostomy tube is functional. Stoma appeared appropriate with Nu Gauze pad present. Nurse stated that they can flush PEG tube well. Son at the bedside. There has been no problem using the PEG tube according to the family. 2.Hospice arranged by family and the patient to be discharged soon. 3.Continue percutaneous endoscopic gastrostomy tube use. 4.Home health and dietary consult as advised. KIEL/OLEG Voice ID: [id number] Report ID: [id number]
== END 2020-04-30 14:23 | disposition hospice, home (50) | DRG 871 ==
LOC: ER 09:50 → ERHOLD 13:03 → 2ND 04-28 13:03
PROVIDERS: ADMIT Internal Medicine; ATTEND Internal Medicine
PROC: 02PY33Z Removal of Infusion Device from Great Vessel, Percutaneous Approach (ICD-10-PCS; 2020-04-29)
PROC: 0JPT0XZ Removal of Tunneled Vascular Access Device from Trunk Subcutaneous Tissue and Fascia, Open Approach (ICD-10-PCS; principal; 2020-04-29 14:45)
DX: A41.01 Sepsis due to Methicillin susceptible Staphylococcus aureus (principal); L89.154 Pressure ulcer of sacral region, stage 4; N18.6 End stage renal disease; R65.21 Severe sepsis with septic shock; R57.1 Hypovolemic shock; E43 Unspecified severe protein-calorie malnutrition; I96 Gangrene, not elsewhere classified; L03.317 Cellulitis of buttock; L03.115 Cellulitis of right lower limb; Z68.1 Body mass index [BMI] 19.9 or less, adult; I50.32 Chronic diastolic (congestive) heart failure; I13.2 Hypertensive heart and chronic kidney disease with heart failure and with stage 5 chronic kidney disease, or end stage renal disease; N25.81 Secondary hyperparathyroidism of renal origin; T87.43 Infection of amputation stump, right lower extremity; E11.52 Type 2 diabetes mellitus with diabetic peripheral angiopathy with gangrene; N25.0 Renal osteodystrophy; B96.1 Klebsiella pneumoniae [K. pneumoniae] as the cause of diseases classified elsewhere; E87.6 Hypokalemia; D63.1 Anemia in chronic kidney disease; E78.5 Hyperlipidemia, unspecified; K21.9 Gastro-esophageal reflux disease without esophagitis; D72.829 Elevated white blood cell count, unspecified; B96.89 Other specified bacterial agents as the cause of diseases classified elsewhere; E11.22 Type 2 diabetes mellitus with diabetic chronic kidney disease; I25.2 Old myocardial infarction; L89.319 Pressure ulcer of right buttock, unspecified stage; L89.109 Pressure ulcer of unspecified part of back, unspecified stage; L89.629 Pressure ulcer of left heel, unspecified stage; Z89.511 Acquired absence of right leg below knee; Z79.82 Long term (current) use of aspirin; Z99.2 Dependence on renal dialysis; Z66 Do not resuscitate; Z53.29 Procedure and treatment not carried out because of patient's decision for other reasons; Z79.02 Long term (current) use of antithrombotics/antiplatelets; Z79.899 Other long term (current) drug therapy; Z86.73 Personal history of transient ischemic attack (TIA), and cerebral infarction without residual deficits; Z20.828 Contact with and (suspected) exposure to other viral communicable diseases
CPT/HCPCS: 36415; 71045; 80048; 80053; 80076; 82947; 83605; 83735; 84100; 84132; 84145; 84439; 84443; 84484; 85025; 85610; 85730; 86850; 86900; 86901; 87040; 87070; 87077; 87186; 87205; 88300; 93005; 96365; 96375; 99285; J0692; J1644; J2543; J3010; J3370; J3480; J3590; J7040; J7042; J7050; U0002